=== PATIENT | male | born 1955 | race Caucasian/White ===

== ENCOUNTER 2018-10-09 08:00 | Outpatient (CLI) | payer MEDICARE, OTHER ==
[2018-10-09 13:00] LABS: CHLORIDE 94 mmol/L (101-111); SODIUM 130 mmol/L (135-145)
[2018-10-09 13:01] LABS: ALBUMIN 3.8 g/dL (3.2-5.5); ALBUMIN/GLOBULIN RATIO 0.9 (1.0-2.2); ALKALINE PHOSPHATASE 91 IU/L (42-121); ALT ALANINE AMINOTRANSFERASE 40 IU/L (10-60); AST ASPARTATE AMINOTRANSFERASE 37 IU/L (10-42); BILIRUBIN,TOTAL 1.1 mg/dL (0.2-1.0); BUN - BLOOD UREA NITROGEN 28 mg/dL (6-20); CALCIUM 9.3 mg/dL (8.5-10.3); CARBON DIOXIDE - CO2 22 mmol/L (21-32); CHOL/HDL RATIO 10.5 (<5.0); CHOLESTEROL 420 mg/dL; CREATININE 0.7 mg/dL (0.6-1.2); GFR - MDRD 113 (>89); GLUCOSE 397 mg/dL (70-100); HDL CHOLESTEROL 40 mg/dL; TOTAL PROTEIN 7.9 g/dL (6.7-8.2)
[2018-10-09 13:02] LABS: BASOPHILS % (AUTO) 0.5 %; EOSINOPHILS # (AUTO) 0.2 10^3/uL (0.0-0.7); EOSINOPHILS % (AUTO) 2.6 %; HGB - HEMOGLOBIN 15.8 g/dL (14.0-18.0); LYMPHOCYTES # (AUTO) 2.5 10^3/uL (1.5-3.5); LYMPHOCYTES % (AUTO) 37.2 %; MEAN CORPUSCULAR HEMOGLOBIN 33.3 pg (27.0-31.0); MEAN CORPUSCULAR HGB CONC 34.2 g/dL (32.0-36.0); MEAN CORPUSCULAR VOLUME 97.5 fL (80.0-94.0); MEAN PLATELET VOLUME 10.6 fL (7.4-11.4); MONOCYTES # (AUTO) 0.7 10^3/uL (0.0-1.0); MONOCYTES % (AUTO) 10.1 %; NEUTROPHILS # (AUTO) 3.4 10^3/uL (1.5-6.6); NEUTROPHILS % (AUTO) 49.6 %; PLT - PLATELET COUNT 166 10^3/uL (130-450); RED BLOOD COUNT 4.73 10^6/uL (4.70-6.10); RED CELL DISTRIBUTION WIDTH 13.4 % (12.0-15.0); WHITE BLOOD COUNT 6.8 x10^3/uL (4.8-10.8)
[2018-10-09 13:11] LABS: HB2 TOTAL 17.5 g/dL; HEMOGLOBIN A1C 2.23 g/dL; HEMOGLOBIN A1C % 13.8 % (4.6-6.2)
[2018-10-09 15:02] LABS: LDL CHOLESTEROL,DIRECT 329 mg/dL; LDLD/HDL RATIO 8.2 (<3.6)
== END 2018-10-09 23:59 | disposition home or self-care (01) ==
LOC: LAB.WCP 08:00
PROVIDERS: ATTEND Family Medicine
DX: E11.9 Type 2 diabetes mellitus without complications (principal)
CPT/HCPCS: 36415; 80053; 80061; 83036; 83721; 84443; 85025

== ENCOUNTER 2018-10-25 08:00 | Outpatient (CLI) | payer MEDICARE, OTHER | END 2018-10-25 23:59 | LOC: LAB.WCP 08:00 | PROVIDERS: ATTEND Nurse Practitioner | DX: R50.9 Fever, unspecified (principal) | CPT/HCPCS: 87275; 87276 ==

== ENCOUNTER 2018-11-06 10:58 | Outpatient (CLI) | payer MEDICARE, OTHER | END 2018-11-06 10:59 | disposition home or self-care (01) | LOC: SC 10:58 | PROVIDERS: ATTEND Internal Medicine Pulmonary Disease | DX: G47.33 Obstructive sleep apnea (adult) (pediatric) (principal); E66.9 Obesity, unspecified; Z68.35 Body mass index [BMI] 35.0-35.9, adult | CPT/HCPCS: 99203; G0463; 99212 ==

== ENCOUNTER 2019-04-12 08:00 | Outpatient (CLI) | payer MEDICARE, OTHER ==
[2019-04-12 19:28] LABS: ALBUMIN 3.7 g/dL (3.2-5.5); ALKALINE PHOSPHATASE 82 IU/L (42-121); ALT ALANINE AMINOTRANSFERASE 36 IU/L (10-60); AST ASPARTATE AMINOTRANSFERASE 27 IU/L (10-42); BILIRUBIN,TOTAL 0.6 mg/dL (0.2-1.0); BUN - BLOOD UREA NITROGEN 28 mg/dL (6-20); CALCIUM 9.4 mg/dL (8.5-10.3); CARBON DIOXIDE - CO2 23 mmol/L (21-32); CHLORIDE 104 mmol/L (101-111); CHOL/HDL RATIO 7.8 (<5.0); CHOLESTEROL 366 mg/dL; CREATININE 0.6 mg/dL (0.6-1.2); GFR - MDRD 135 (>89); GLUCOSE 353 mg/dL (70-100); HDL CHOLESTEROL 47 mg/dL; LDL CHOLESTEROL,CALCULATED 256 mg/dL; LDL/HDL RATIO 5.4 (<3.6); SODIUM 138 mmol/L (135-145); TOTAL PROTEIN 7.5 g/dL (6.7-8.2); VLDL CHOLESTEROL 63 mg/dL
== END 2019-04-12 23:59 | disposition home or self-care (01) ==
LOC: LAB.N 08:00
PROVIDERS: ATTEND Family Medicine
DX: E78.5 Hyperlipidemia, unspecified (principal)
CPT/HCPCS: 36415; 80053; 80061; 83721

== ENCOUNTER 2019-05-10 10:00 | Outpatient (CLI) | payer MEDICARE, OTHER ==
[2019-05-10 15:44] LABS: BILIRUBIN,URINE NEGATIVE (NEGATIVE); GLUCOSE, URINE (UA) >=1000 mg/dL (NEGATIVE); KETONES,URINE (UA) NEGATIVE (NEGATIVE); LEUKOCYTE ESTERASE, URINE NEGATIVE (NEGATIVE); NITRITE,URINE NEGATIVE (NEGATIVE); OCCULT BLOOD,URINE NEGATIVE (NEGATIVE); PROTEIN,URINE TRACE mg/dL (NEGATIVE); UROBILINOGEN,URINE 0.2 (NORMAL) E.U./dL (NORMAL)
[2019-05-10 15:46] LABS: CLARITY,URINE CLEAR (CLEAR)
== END 2019-05-10 23:59 | disposition home or self-care (01) ==
LOC: LAB.R 10:00
PROVIDERS: ATTEND Family Medicine
DX: E11.9 Type 2 diabetes mellitus without complications (principal); R35.0 Frequency of micturition
CPT/HCPCS: 81001; 81003; 87086

== ENCOUNTER 2019-05-10 10:36 | Outpatient (CLI) | payer MEDICARE, OTHER ==
[2019-05-10 12:02] LABS: BASOPHILS % (AUTO) 0.6 %; EOSINOPHILS # (AUTO) 0.2 10^3/uL (0.0-0.7); EOSINOPHILS % (AUTO) 3.1 %; HGB - HEMOGLOBIN 13.5 g/dL (14.0-18.0); LYMPHOCYTES # (AUTO) 1.7 10^3/uL (1.5-3.5); MEAN CORPUSCULAR HEMOGLOBIN 31.6 pg (27.0-31.0); MEAN CORPUSCULAR HGB CONC 34.5 g/dL (32.0-36.0); MEAN CORPUSCULAR VOLUME 91.6 fL (80.0-94.0); MEAN PLATELET VOLUME 12.1 fL (7.4-11.4); MONOCYTES # (AUTO) 0.5 10^3/uL (0.0-1.0); MONOCYTES % (AUTO) 7.7 %; NEUTROPHILS # (AUTO) 3.8 10^3/uL (1.5-6.6); NEUTROPHILS % (AUTO) 61.1 %; PLT - PLATELET COUNT 133 10^3/uL (130-450); RED BLOOD COUNT 4.27 10^6/uL (4.70-6.10); RED CELL DISTRIBUTION WIDTH 12.6 % (12.0-15.0); WHITE BLOOD COUNT 6.2 x10^3/uL (4.8-10.8)
[2019-05-10 12:27] LABS: ALBUMIN 3.5 g/dL (3.2-5.5); ALBUMIN/GLOBULIN RATIO 0.9 (1.0-2.2); BILIRUBIN,TOTAL 0.8 mg/dL (0.2-1.0); CALCIUM 9.1 mg/dL (8.5-10.3); CREATININE 0.8 mg/dL (0.6-1.2); CRP - C-REACTIVE PROTEIN 3.2 mg/dL (0-1.0); TOTAL PROTEIN 7.6 g/dL (6.7-8.2)
== END 2019-05-10 23:59 | disposition home or self-care (01) ==
LOC: LAB.N 10:36
PROVIDERS: ATTEND Family Medicine
DX: R05 Cough (principal); E11.9 Type 2 diabetes mellitus without complications; R35.0 Frequency of micturition
CPT/HCPCS: 36415; 80053; 81003; 83615; 85025; 86140

== ENCOUNTER 2019-05-27 14:56 | Outpatient (CLI) | payer MEDICARE, OTHER ==
--- NOTE | 2019-05-27 15:26 | SLEEP CARE CONSULTATION ---
Information from patient questionnaire entered by Kera Dowell. I have reviewed and concur with the information entered by Kera Dowell. This document represents the service I personally performed and the decisions made by me, Morgan López MD, [facility]. History of Present Illness Previous diagnosis: Moderate, Obstructive Sleep Apnea-Hypopnea Syndrome AHI: 20 Reason for CPAP/BiPAP follow up: first compliance Equipment type: CPAP Equipment obtained from: [employer] Prior sleep studies: Yes Year and Where: 2017 [facility] HPI additional information: HPI: Mr. Ramos was diagnosed to have moderate obstructive sleep apnea- hypopnea syndrome and returns today for annual follow up of CPAP therapy. The patient gets his supplies from [employer]. He wears a full face mask. He continues to use the device nightly and all through the night. The compliance report shows that he uses the device 29 nights out of the past 30 nights, averaging 10.1 hours a night. The > 4 hour compliance rate for the past 30 days is 93.3%. He complains of no particular problem with the device such as soreness on the face, dry nose, epistaxis, nasal congestion or headache. He thinks that the pressure of 10 - 20 cmH2O is comfortable. On the CPAP therapy he notices improvement in his sleep quality, and that he wakes up feeling fresher in the morning and more awake/alert during the day. Hayward Sleepiness Scale score is 0. His notices occasional snore through the CPAP. The average residual AHI is 1.7; and large leak, 4 minutes a night. He is still using his old Respironics machine because the exact setup date of this machine is unclear (the machine broke after a few months at the beginning and he was given a refurbished unit). CPAP Compliance Data - Data Reviewed with Patient Average duration of nightly device use: 10h 5m Compliance rate %: 93.3 Current pressure setting (cmH2O): 10-20 Humidity settin Heated hose settin Subjective Patient concerns: reports: air blowing in eyes, condensation in mask/hose, dry mouth, nose, throat Initial Hayward Sleepiness Scale score: 3 Current Hayward Sleepiness Scale score: 0 Allergies and Home Medications Drug allergies reviewed: Yes Home medication list reviewed: Yes Review of Systems Review of systems same as previous: Yes Physical Exam Height: 5 ft 4 in Weight: 209 lb Body Mass Index: 35.9 BMI Classification: Obesity Class 2 Impression and Plan IMPRESSION: 1. Obstructive Sleep Apnea-Hypopnea Syndrome, moderate, with the patient continuing to do well on nasal CPAP therapy. He has excellent compliance and significant clinical benefits. The current pressure appears effective and comfortable. Overall, he is very satisfied with treatment and plans to continue with it long-term. I will reorder a new machine for him. PLAN: 1. Prescription made for an autoCPAP, heated humidifier, and related supplies. 2. Try ResMed F30 and Respironics AmaraView full face masks. 3. Try to lose weight. 4. Return for follow up after one month on the new machine. I spent 100% of this 20 minute visit face to face with the patient with greater than 50% of this was spent time counseling the patient and coordination of care.
== END 2019-05-27 14:57 | disposition home or self-care (01) ==
LOC: SC 14:56
PROVIDERS: ATTEND Internal Medicine Pulmonary Disease
DX: G47.33 Obstructive sleep apnea (adult) (pediatric) (principal); E66.9 Obesity, unspecified; Z68.35 Body mass index [BMI] 35.0-35.9, adult
CPT/HCPCS: 99213; G0463; 99212

== ENCOUNTER 2019-07-16 11:05 | Outpatient (CLI) | payer MEDICARE, OTHER ==
[2019-07-16 19:04] LABS: CHOL/HDL RATIO 4.1 (<5.0); CHOLESTEROL 196 mg/dL; HDL CHOLESTEROL 48 mg/dL; LDL CHOLESTEROL,CALCULATED 106 mg/dL; LDL/HDL RATIO 2.2 (<3.6); VLDL CHOLESTEROL 42 mg/dL
== END 2019-07-16 23:59 | disposition home or self-care (01) ==
LOC: LAB.N 11:05
PROVIDERS: ATTEND Family Medicine
DX: E78.5 Hyperlipidemia, unspecified (principal)
CPT/HCPCS: 36415; 80061; 83721

== ENCOUNTER 2019-07-26 12:33 | Outpatient (CLI) | payer MEDICARE, OTHER | END 2019-07-26 12:34 | disposition home or self-care (01) | LOC: RT 12:33 | PROVIDERS: ATTEND Internal Medicine Gastroenterology | DX: I50.9 Heart failure, unspecified (principal); I25.10 Atherosclerotic heart disease of native coronary artery without angina pectoris | CPT/HCPCS: 93005 ==

== ENCOUNTER 2019-08-06 06:43 | Day surgery (SDC) | payer MEDICARE, OTHER ==
[2019-08-06] MEDS ORDERED: MIDAZOLAM 2 MG/2 ML VIAL IVP ONE (06:44)
[2019-08-06] MEDS ORDERED: KETAMINE 500 MG/10 ML VIAL IVP ONE (06:44)
[2019-08-06] MEDS ORDERED: PROPOFOL 200 MG/20 ML VIAL IVP ONE (06:44)
[2019-08-06] MEDS ORDERED: LACTATED RINGERS 1,000 ML IV ONE ×2 (06:52→09:17)
--- NOTE | 2019-08-06 08:13 | ANESTHESIA ---
Pre-Anesthesia VS, & Labs - Diagnosis hx colon polyps - Procedure colonoscopy Vital Signs: Temp Pulse Resp BP Pulse Ox 36.0 C L 104 H 17 157/83 H 99 08/06/19 07:10 08/06/19 07:10 08/06/19 07:10 08/06/19 07:10 08/06/19 07:10 Height 5 ft 4 in Weight (kg) 99 kg Body Mass Index 35.9 - NPO >8 hours - Lab Results Current Lab Results: Laboratory Tests 08/06/19 07:22: POC Whole Bld Glucose 242 H Lab results reviewed: Yes Home Medications and Allergies Home Medications: Ambulatory Orders Aspirin [Aspirin EC] 81 mg PO DAILY 07/30/19 Carvedilol [Coreg] 25 mg PO BID 07/30/19 Empagliflozin [Jardiance] 25 mg PO DAILY 07/30/19 Evolocumab [Repatha Sureclick] 140 mg SQ ONCE 07/30/19 Exenatide Microspheres [Bydureon Pen] 2 mg SQ OAW 07/30/19 Ezetimibe [Zetia] 10 mg PO QPM 07/30/19 Gemfibrozil 600 mg PO BID 07/30/19 Insulin Regular, Human [Humulin R U-500 Kwikpen] 160 unit SUBQ BIDWM 07/30/19 Insulin Regular, Human [Humulin R U-500 Kwikpen] 240 unit SUBQ QDBREAKFAST 07/30/19 Isosorbide Dinitrate 10 - 30 mg PO DAILY 07/30/19 Ivabradine HCl [Corlanor] 5 mg PO BID 07/30/19 Lisinopril 10 mg PO DAILY 07/30/19 Loratadine [Allergy Relief] 10 mg PO DAILY 07/30/19 Metformin HCl 1,000 mg PO BID 07/30/19 Mohawk-3/Dha/Epa/Fish Oil [Mohawk 3 500 Softgel] 1,000 mg PO BID 07/30/19 Pentoxifylline 400 mg PO TID 07/30/19 Pregabalin [Lyrica] 100 mg PO BID 07/30/19 Spironolactone 25 mg PO DAILY 07/30/19 Aspirin [Aspirin EC] 81 mg PO DAILY 07/30/19 Carvedilol [Coreg] 25 mg PO BID 07/30/19 Empagliflozin [Jardiance] 25 mg PO DAILY 07/30/19 Evolocumab [Repatha Sureclick] 140 mg SQ ONCE 07/30/19 Exenatide Microspheres [Bydureon Pen] 2 mg SQ OAW 07/30/19 Ezetimibe [Zetia] 10 mg PO QPM 07/30/19 Gemfibrozil 600 mg PO BID 07/30/19 Insulin Regular, Human [Humulin R U-500 Kwikpen] 160 unit SUBQ BIDWM 07/30/19 Insulin Regular, Human [Humulin R U-500 Kwikpen] 240 unit SUBQ QDBREAKFAST 07/30/19 Isosorbide Dinitrate 10 - 30 mg PO DAILY 07/30/19 Ivabradine HCl [Corlanor] 5 mg PO BID 07/30/19 Lisinopril 10 mg PO DAILY 07/30/19 Loratadine [Allergy Relief] 10 mg PO DAILY 07/30/19 Metformin HCl 1,000 mg PO BID 07/30/19 Mohawk-3/Dha/Epa/Fish Oil [Mohawk 3 500 Softgel] 1,000 mg PO BID 07/30/19 Pentoxifylline 400 mg PO TID 07/30/19 Pregabalin [Lyrica] 100 mg PO BID 07/30/19 Spironolactone 25 mg PO DAILY 07/30/19 Allergies/Adverse Reactions: Allergies Allergy/AdvReac Type Severity Reaction Status Date / Time morphine AdvReac Nausea Verified 07/30/19 14:17 Anes History & Medical History - Anesthetic History Anesthesia Complications: reports: No previous complications Family history of Anesthesia Complications: Denies Family history of Malignant Hyperthermia: Denies - Medical History Cardiovascular: reports: Congestive heart failure, Hypertension, High cholesterol, Coronary artery disease, [place] Pulmonary: reports: Sleep apnea, CPAP use Gastrointestinal: reports: Colon polyps Urinary: reports: None Musculoskeletal: reports: None Endocrine/Autoimmune: reports: Type 2 diabetes Skin: reports: None - Surgical History General: Other Eyes Ears Nose Throat (EENT): Cataracts, Myringotomy (tubes), Other Cardiothoracic: CABG, Coronary stent, AICD, Angioplasty Orthopedic: Rotator cuff repair, Carpal Tunnel surgery, Other Exam General: Alert, Oriented x3, Cooperative Dental: WNL Mouth Opening: Greater than 4 Fingerbreadths Neck Mobility: Normal Mallampati classification: II Thyromental Distance: greater than 6 cm Respiratory: Lungs clear, Normal breath sounds, No respiratory distress, No accessory muscle use Cardiovascular: Regular rate Neurological: Normal speech Mental/Cognitive Status: Alert/Oriented X3, Normal for patient Cognitive Status: Within normal limits Plan Anesthesia Type: MAC Consent for Procedure(s) Verified and Reviewed: Yes Code Status: Attempt Resuscitation ASA classification: 3-Severe systemic disease Is this case an emergency?: No
[2019-08-06 09:38] VITALS: BP 116/73
== END 2019-08-06 06:44 | disposition home or self-care (01) ==
LOC: SDS 06:43
PROVIDERS: ATTEND Internal Medicine Gastroenterology
PROC: 0DBN8ZZ Excision of Sigmoid Colon, Via Natural or Artificial Opening Endoscopic (ICD-10-PCS; principal; 2019-08-06 12:00)
DX: Z12.11 Encounter for screening for malignant neoplasm of colon (principal); K63.5 Polyp of colon; E66.9 Obesity, unspecified; E11.9 Type 2 diabetes mellitus without complications; I25.10 Atherosclerotic heart disease of native coronary artery without angina pectoris; G47.33 Obstructive sleep apnea (adult) (pediatric); I11.0 Hypertensive heart disease with heart failure; I50.9 Heart failure, unspecified; I25.2 Old myocardial infarction; Z79.4 Long term (current) use of insulin; Z79.899 Other long term (current) drug therapy; Z95.5 Presence of coronary angioplasty implant and graft; Z95.1 Presence of aortocoronary bypass graft; Z87.891 Personal history of nicotine dependence; Z68.35 Body mass index [BMI] 35.0-35.9, adult; Z79.82 Long term (current) use of aspirin; Z95.810 Presence of automatic (implantable) cardiac defibrillator
CPT/HCPCS: 45380; J7120

== ENCOUNTER 2020-03-07 08:03 | Outpatient (CLI) | payer MEDICARE, OTHER ==
[2020-03-07 09:48] LABS: BASOPHILS # (AUTO) 0.1 10^3/uL (0.0-0.1); BASOPHILS % (AUTO) 0.7 %; EOSINOPHILS # (AUTO) 0.2 10^3/uL (0.0-0.7); EOSINOPHILS % (AUTO) 2.4 %; LYMPHOCYTES # (AUTO) 2.1 10^3/uL (1.5-3.5); LYMPHOCYTES % (AUTO) 25.1 %; MEAN CORPUSCULAR HEMOGLOBIN 31.7 pg (27.0-31.0); MEAN CORPUSCULAR HGB CONC 34.3 g/dL (32.0-36.0); MEAN CORPUSCULAR VOLUME 92.4 fL (80.0-94.0); MEAN PLATELET VOLUME 11.2 fL (7.4-11.4); MONOCYTES # (AUTO) 0.9 10^3/uL (0.0-1.0); MONOCYTES % (AUTO) 10.9 %; NEUTROPHILS # (AUTO) 5.1 10^3/uL (1.5-6.6); NEUTROPHILS % (AUTO) 60.4 %; PLT - PLATELET COUNT 149 10^3/uL (130-450); RED BLOOD COUNT 4.73 10^6/uL (4.70-6.10); RED CELL DISTRIBUTION WIDTH 12.6 % (12.0-15.0); WHITE BLOOD COUNT 8.5 x10^3/uL (4.8-10.8)
[2020-03-07 09:59] LABS: ALBUMIN 3.7 g/dL (3.2-5.5); ALBUMIN/GLOBULIN RATIO 0.9 (1.0-2.2); CALCIUM 9.3 mg/dL (8.5-10.3); CREATININE 0.8 mg/dL (0.6-1.2); TOTAL PROTEIN 7.7 g/dL (6.7-8.2)
--- NOTE | 2020-03-07 11:11 | Ultrasound Report ---
PROCEDURE: Abdomen Complete INDICATIONS: ABD DISCOMFORT TECHNIQUE: Real-time scanning was performed of the abdominal and retroperitoneal organs, with image documentatio n. COMPARISON: None. FINDINGS: Liver: Liver is normal in size. The liver demonstrates a heterogeneous, hyperechoic appearance. With in the anterolateral left lobe of the liver, there is a cyst is seen measuring 7 mm. Within the poste rior lateral mid right lobe along the diaphragmatic surface, there is a hypoechoic heterogeneous area measuring 3.8 x 2.5 x 2.6 cm. Gallbladder: The gallbladder is distended. No gallstones or significant sludge can be seen. The gall bladder wall does not appear thickened. There is no specific pericholecystic fluid. The sonographic M urphy's sign is negative. Biliary ducts: Intrahepatic bile ducts are non-dilated. Extrahepatic bile duct caliber measures 4 m m. Normal is 6-7 mm or less in diameter, or 10 mm or less post-cholecystectomy. Pancreas: Visualized portions of the pancreas are sonographically normal. Spleen: Spleen is normal in size and homogeneous in echotexture. Kidneys: Kidneys are normal in size and echotexture. Right kidney measures 12.9 cm long; left kidne y measures 12.2 cm long. No hydronephrosis or nephrolithiasis. No solid masses. The renal cortex measures within normal limits for thickness. Aorta: Visualized aorta is normal in caliber at less than 3 cm. Atherosclerotic plaque is seen. Iliacs: Proximal common iliac arteries are normal in caliber at less than 2.5 cm. IVC: Intrahepatic inferior vena cava is patent. Miscellaneous: No free abdominal fluid. IMPRESSION: The gallbladder demonstrates a normal sonographic appearance. No biliary dilatation is seen. Heterogeneous hyperechoic liver, most likely related to fatty infiltration. Within the posterior right liver, there is a 3.8 cm relative hypoechoic focus. Differential diagnosis includes focal fatty sparing and a true mass. Please consider a liver protocol MRI (without and with contrast) for further evaluation (assuming that there is no contraindication). Incidental note is made of: Left liver cyst Atherosclerotic plaque Reviewed by: Dong Stafford MD on 03/07/2020 10:09 AM PAPA Approved by: Dong Stafford MD on 03/07/2020 10:09 AM AKGARRETT Station ID: [id number]
== END 2020-03-07 08:04 | disposition home or self-care (01) ==
LOC: DI 08:03
PROVIDERS: ATTEND Family Medicine
DX: R10.9 Unspecified abdominal pain (principal); K76.89 Other specified diseases of liver
CPT/HCPCS: 36415; 76700; 80053; 82150; 83690; 85025

== ENCOUNTER 2020-07-06 10:14 | Outpatient (CLI) | payer MEDICARE, OTHER ==
--- NOTE | 2020-07-06 10:41 | SLEEP CARE CONSULTATION ---
Information from patient questionnaire entered by Susan Holland. I have reviewed and concur with the information entered by Susan Holland. This document represents the service I personally performed and the decisions made by , Roxie Dunham ARNP. History of Present Illness Service Date and Time: 07/06/2020 1014 Previous diagnosis: Moderate, Obstructive Sleep Apnea-Hypopnea Syndrome AHI: 20 (in 2018) Reason for follow up: annual (last seen 2019) Equipment type: CPAP Equipment obtained from: [employer] (getting supplies as needed) Mask style: Full face Backup mask available: Yes (old mask) Last cushion change: 1 week ago Prior sleep studies: Yes Year and Where: 2018 - [facility] HPI additional information: LETY BUNCH was diagnosed to have moderate, AHI 20, obstructive sleep apnea- hypopnea syndrome and returned today for CPAP therapy annual follow-up. CPAP Compliance Data - Data Reviewed with Patient Average duration of nightly device use: 10 hours 9 min Compliance rate %: 99.4 Current pressure setting (cmH2O): 12-20 Humidity settin Heated hose settin Average residual AHI: 1.7 Average large leak: 4 mins. 53 secs Subjective Patient concerns: denies: aerophagia, mask discomfort, air blowing in eyes, mask leak noise, condensation in mask/hose, nasal congestion, dry mouth, nose, throat, epistaxis, other Observed to snore while using device: Yes (when he is on his back) Current pressure setting perceived as: comfortable On therapy, patient: reports: sleeping better, awakening more refreshed, being more awake and alert during the day, more rested overall. denies: drowsiness while driving Initial Cruger Sleepiness Scale score: 3 (in 2019) Current Cruger Sleepiness Scale score: 3 Allergies and Home Medications Drug allergies reviewed: Yes (morphine) Home medication list reviewed: Yes (no changes) Review of Systems Review of systems same as previous: Yes (no changes) Physical Exam Heart Rate: 96 O2 Saturation: 94 Height: 5 ft 4 in Weight: 217 lb Body Mass Index: 37.2 BMI Classification: Obese Impression and Plan 1. Obstructive Sleep Apnea-Hypopnea Syndrome, moderate, with good treatment comp liance and good apnea control. On CPAP therapy, the patient has better sleep quality and is more rested overall. Patient asked about and informed that he is eligible for a new machine next year. He has no other issues or concerns today. We will have him back next year or sooner with any other concerns that may arise. Patient's apnea severity and rationale for treatment to reduce apnea, improve sleep quality and reduce cardiovascular and cerebrovascular events was reviewed. I also reviewed the benefit of consistent device use of CPAP for cardiac disease and diabetes. * Continue auto CPAP pressure at 12-20 cmH2O * Notify me if snoring with mask or feeling that the pressure is too much or too little * Attempt to lose weight * Call this office if any problems using CPAP * Return for follow up in 1 year , or sooner if concerns arise Counseling Topics: Spare mask, Weight loss health impact Visit Type: In Office Time Spent with Patient (minutes): 20 Provider Statement: I spent 100% of the Face to Face Visit with the patient with greater than 50% spent counseling the patient and coordination of care.
== END 2020-07-06 10:15 | disposition home or self-care (01) ==
LOC: SC 10:14
PROVIDERS: ATTEND Nurse Practitioner Family
DX: G47.33 Obstructive sleep apnea (adult) (pediatric) (principal); E66.9 Obesity, unspecified; Z68.37 Body mass index [BMI] 37.0-37.9, adult
CPT/HCPCS: 99213; G0463; 99212

== ENCOUNTER 2020-09-14 11:56 | Outpatient (CLI) | payer MEDICARE, OTHER | END 2020-09-14 11:57 | disposition short-term general hospital (02) | LOC: EMS 11:56 | PROVIDERS: ATTEND Surgery | DX: R07.9 Chest pain, unspecified (principal); R06.09 Other forms of dyspnea | CPT/HCPCS: A0425; A0427 ==

== ENCOUNTER 2021-05-28 09:00 | Outpatient (CLI) | payer MEDICARE, OTHER ==
[2021-05-28 12:23] LABS: ESTIMATED AVERAGE GLUCOSE 318 mg/dL (70-100); HEMOGLOBIN A1c% 12.7 % (4.27-6.07)
[2021-05-28 12:32] LABS: CALCIUM 9.8 mg/dL (8.5-10.3); CREATININE 0.8 mg/dL (0.6-1.2); POTASSIUM 4.3 mmol/L (3.5-5.0)
== END 2021-05-28 23:59 | disposition home or self-care (01) ==
LOC: LAB.WCP 09:00
PROVIDERS: ATTEND Internal Medicine
DX: E11.8 Type 2 diabetes mellitus with unspecified complications (principal)
CPT/HCPCS: 36415; 80048; 83036

== ENCOUNTER 2021-08-09 10:57 | Outpatient (CLI) | payer MEDICARE, OTHER ==
[2021-08-10 08:49] VITALS: BP 130/96
--- NOTE | 2021-08-10 08:49 | SLEEP CARE CONSULTATION ---
Information from patient questionnaire entered by Brennon Watkins MA. I have reviewed and concur with the information entered by Brennon Watkins MA. This document represents the service I personally performed and the decisions made by me, Morgan López MD, [facility]. History of Present Illness Service Date and Time: 08/09/2021 1057 Previous diagnosis: Moderate, Obstructive Sleep Apnea-Hypopnea Syndrome AHI: 20 (in 2018) Reason for follow up: annual (LAST SEEN 06/2020) Equipment type: CPAP Equipment obtained from: Other (getting supplies as needed thru [employer]) Mask style: Full face Prior sleep studies: Yes Year and Where: 2017 - [facility] additional information: Mr. Ramos was diagnosed to have moderate obstructive sleep apnea-hypopnea syndrome and returns today for annual follow up of CPAP therapy. The patient gets his supplies from [facility]. He wears a full face mask. He continues to use the device nightly and all through the night. The compliance report shows that he uses the device 180 nights out of the past 180 nights, averaging 11.1 hours a night. The > 4 hour compliance rate for the past 180 days is 100%. He complains of no particular problem with the device such as soreness on the face, dry nose, epistaxis, nasal congestion or headache. He thinks that the pressure of 12 - 20 cmH2O is comfortable. On the CPAP therapy he notices improvement in his sleep quality, and that he wakes up feeling fresher in the morning and more awake/alert during the day. Gobler Sleepiness Scale score is 10 (was 0). His notices occasional snore through the CPAP. The average residual AHI is 2.7 (was 1.7); and large leak, 4.5 minutes a night. The 90th percentile pressure is 14.5 cmH2O. Sleep Study - Results Prior sleep studies: Yes Year and Where: 2017 - [facility] CPAP Compliance Data - Data Reviewed with Patient Average duration of nightly device use: 11 HOURS 6 MINUTES Compliance rate %: 1,000 Current pressure setting (cmH2O): 12-20 Humidity settin Heated hose settin Average residual AHI: 2.7 Average large leak: 4 MINUTES 30 SECONDS Subjective Patient concerns: reports: condensation in mask/hose, dry mouth, nose, throat, other (snore while using) Initial Gobler Sleepiness Scale score: 3 (in 2019) Current Gobler Sleepiness Scale score: 10 (2020) Allergies and Home Medications Drug allergies reviewed: Yes Home medication list reviewed: Yes Review of Systems Review of systems same as previous: Yes Physical Exam Vital signs obtained and entered by: JAMESON FITZPATRICK Blood Pressure: 130/96 (left) Cuff size: wrist Heart Rate: 72 O2 Saturation: 88 (with mask) Height: 5 ft 4 in Weight: 188 lb Body Mass Index: 32.2 BMI Classification: Obese Impression and Plan IMPRESSION: 1. Obstructive Sleep Apnea-Hypopnea Syndrome, moderate, with the patient continuing to do well on nasal CPAP therapy. He has excellent compliance and significant clinical benefits. The current pressure appears effective and comfortable. Overall, he is very satisfied with treatment and plans to continue with it long-term. Because the CPAP is now older than the useful life of 5 years and is being recalled, I will order the patient a new one and make it a ResMed AirSense 11 set between 13 and 20 cmH2O. PLAN: 1. Prescription made for an autoCPAP, heated humidifier, and r elated supplies. 2. Try ResMed F30 and Respironics DreamWear full face mask. 3. Try to lose weight. 4. Return for follow up after one month of using the CPAP. Follow up with Sleep Care in: 1 year Visit Type: In Office Time Spent with Patient (minutes): 15 Provider Statement: I spent 100% of the Face to Face Visit with the patient with greater than 50% spent counseling the patient and coordination of care.
== END 2021-08-09 10:58 | disposition home or self-care (01) ==
LOC: SC 10:57
PROVIDERS: ATTEND Nurse Practitioner Family
DX: G47.33 Obstructive sleep apnea (adult) (pediatric) (principal); E66.9 Obesity, unspecified; Z68.32 Body mass index [BMI] 32.0-32.9, adult
CPT/HCPCS: 99212; G0463

== ENCOUNTER 2022-01-28 10:01 | Outpatient (CLI) | payer MEDICARE, OTHER ==
[2022-01-28 10:53] VITALS: BP 141/83
--- NOTE | 2022-01-28 10:53 | SLEEP CARE CONSULTATION ---
Information from patient questionnaire entered by Brennon Watkins MA. I have reviewed and concur with the information entered by Brennon Watkins MA. This document represents the service I personally performed and the decisions made by , Roxie Dunham ARNP. History of Present Illness Service Date and Time: 01/28/2022 1001 Previous diagnosis: Moderate, Obstructive Sleep Apnea-Hypopnea Syndrome AHI: 20 (in 2018) Reason for follow up: first compliance (SET UP DATE 11/23/2021, DESIREE - IN SYSTEM, ), first compliance after device update Equipment type: CPAP Equipment obtained from: [employer] (getting supplies as needed) Mask style: Full face Backup mask available: Yes (old mask) Last cushion change: 3-4 weeks Prior sleep studies: Yes Year and Where: 2017 - [facility] HPI additional information: LETY BUNCH was diagnosed to have moderate, AHI 20, obstructive sleep apnea- hypopnea syndrome and returned today for CPAP therapy first compliance after updating device follow-up. Sleep Study - Results Prior sleep studies: Yes Year and Where: 2018 - [facility] CPAP Compliance Data - Data Reviewed with Patient Average duration of nightly device use: 5 hours 8 minutes Compliance rate %: 46.7 (10/29/21-01/26/22; 90 days) Current pressure setting (cmH2O): 12-20 Average residual AHI: 0.1 Average large leak: 0 minutes Compliance data discussion: Patient states he is using his machine every night. There is no data on the [employer] website since late November up to today. We did try to have him download it again in the office but still did not see any data for the last 30 days. His therapy details shows that he was 100% compliant in a 30 day period in the last 90 days. Subjective Patient concerns: denies: aerophagia, mask discomfort, air blowing in eyes, mask leak noise, condensation in mask/hose, nasal congestion, dry mouth, nose, throat, epistaxis Observed to snore while using device: No Current pressure setting perceived as: comfortable On therapy, patient: reports: sleeping better, awakening more refreshed, being more awake and alert during the day, more rested overall. denies: drowsiness while driving Initial Chase[place] Sleepiness Scale score: 3 (in 2019) Current [place] Sleepiness Scale score: 13 Allergies and Home Medications Home medication list reviewed: Yes (no changes) Allergy and home medication list: Allergies morphine Adverse Reaction (Verified 07/30/19 14:17) Nausea Medications list: Lantus Carvedilol Metformin Entresto Corlanor Repatha Lyrica Pravastatin Jardiance Aspirin Trulicity Isosorbide Indapamide Famotidine Review of Systems Review of systems same as previous: Yes (no changes) Physical Exam Vital signs obtained and entered by: Bruce WATKINS CMA AASTACY Blood Pressure: 141/83 (RESP 18, PULSE 76, LEFT, ) Heart Rate: 77 O2 Saturation: 97 (PAPER MASK) Height: 5 ft 4 in Weight: 227 lb Body Mass Index: 38.9 BMI Classification: Obese Impression and Plan 1. Obstructive Sleep Apnea-Hypopnea Syndrome, moderate, with excellent treatment compliance and excellent apnea control. On CPAP therapy, the patient has better sleep quality and is more rested overall. We had some difficulty with getting his downloaded information. But, I can see that he has been compliant and the patient states he is using it nightly. I am going to have him contact the RT at [facility] so they can see if it needs to be reset or to educate him on how to get the information downloaded from his device. But overall he is compliant with his new Desiree machine. Patient denies problems with oral dryness, nasal congestion, epistaxis, skin irritation or aerophagia. Patient's apnea severity and rationale for treatment to reduce apnea, improve sleep quality and reduce cardiovascular and cerebrovascular events was reviewed. I also reviewed the benefit of consistent device use of CPAP for cardiac disease and diabetes. * Continue auto CPAP pressure at 12-20 cmH2O * Notify me if snoring with mask or feeling that the pressure is too much or too little * Attempt to lose weight * Call this office if any problems using CPAP * Return for follow up in 1 year, or sooner if concerns arise Counseling Topics: Spare mask, Weight loss health impact Visit Type: In Office Time Spent with Patient (minutes): 25 Provider Statement: I spent 100% of the Face to Face Visit with the patient with greater than 50% spent counseling the patient and coordination of care.
== END 2022-01-28 10:02 | disposition home or self-care (01) ==
LOC: SC 10:01
PROVIDERS: ATTEND Nurse Practitioner Family
DX: G47.33 Obstructive sleep apnea (adult) (pediatric) (principal); E66.9 Obesity, unspecified; Z68.38 Body mass index [BMI] 38.0-38.9, adult
CPT/HCPCS: 99213; G0463; 99212

== ENCOUNTER 2022-03-10 12:12 | Outpatient (CLI) | payer MEDICARE, OTHER ==
[2022-03-10 17:51] LABS: BASOPHILS # (AUTO) 0.1 10^3/uL (0.0-0.1); BASOPHILS % (AUTO) 0.9 %; EOSINOPHILS # (AUTO) 0.2 10^3/uL (0.0-0.7); EOSINOPHILS % (AUTO) 3.9 %; HCT - HEMATOCRIT 32.4 % (42.0-52.0); HGB - HEMOGLOBIN 10.6 g/dL (14.0-18.0); LYMPHOCYTES % (AUTO) 17.8 %; MEAN CORPUSCULAR HEMOGLOBIN 30.5 pg (27.0-31.0); MEAN CORPUSCULAR HGB CONC 32.7 g/dL (32.0-36.0); MEAN CORPUSCULAR VOLUME 93.4 fL (80.0-94.0); MONOCYTES # (AUTO) 0.8 10^3/uL (0.0-1.0); MONOCYTES % (AUTO) 13.6 %; NEUTROPHILS # (AUTO) 3.6 10^3/uL (1.5-6.6); NEUTROPHILS % (AUTO) 63.4 %; PLT - PLATELET COUNT 117 10^3/uL (130-450); RED BLOOD COUNT 3.47 10^6/uL (4.70-6.10); WHITE BLOOD COUNT 5.7 x10^3/uL (4.8-10.8)
[2022-03-10 18:49] LABS: ALBUMIN 3.5 g/dL (3.2-5.5); ALBUMIN/GLOBULIN RATIO 0.9 (1.0-2.2); BILIRUBIN,TOTAL 1.1 mg/dL (0.2-1.0); CALCIUM 8.8 mg/dL (8.5-10.3); CREATININE 2.3 mg/dL (0.6-1.2); POTASSIUM 4.8 mmol/L (3.5-5.0); TOTAL PROTEIN 7.4 g/dL (6.7-8.2)
== END 2022-03-10 12:13 | disposition home or self-care (01) ==
LOC: LAB.N 12:12
PROVIDERS: ATTEND Nurse Practitioner
DX: C22.0 Liver cell carcinoma (principal)
CPT/HCPCS: 36415; 80053; 85025

== ENCOUNTER 2022-07-12 10:33 | Outpatient (CLI) | payer MEDICARE, OTHER ==
[2022-07-12 11:54] LABS: BASOPHILS # (AUTO) 0.1 10^3/uL (0.0-0.1); BASOPHILS % (AUTO) 1.3 %; EOSINOPHILS # (AUTO) 0.4 10^3/uL (0.0-0.7); HCT - HEMATOCRIT 31.2 % (42.0-52.0); HGB - HEMOGLOBIN 9.8 g/dL (14.0-18.0); LYMPHOCYTES # (AUTO) 0.9 10^3/uL (1.5-3.5); MEAN CORPUSCULAR HEMOGLOBIN 29.7 pg (27.0-31.0); MEAN CORPUSCULAR HGB CONC 31.4 g/dL (32.0-36.0); MEAN CORPUSCULAR VOLUME 94.5 fL (80.0-94.0); MEAN PLATELET VOLUME 11.7 fL (7.4-11.4); MONOCYTES # (AUTO) 0.7 10^3/uL (0.0-1.0); MONOCYTES % (AUTO) 11.7 %; NEUTROPHILS # (AUTO) 4.1 10^3/uL (1.5-6.6); NEUTROPHILS % (AUTO) 65.7 %; PLT - PLATELET COUNT 192 10^3/uL (130-450); RED CELL DISTRIBUTION WIDTH 16.5 % (12.0-15.0); WHITE BLOOD COUNT 6.2 x10^3/uL (4.8-10.8)
[2022-07-12 13:03] LABS: ALBUMIN 3.4 g/dL (3.2-5.5); ALBUMIN/GLOBULIN RATIO 0.8 (1.0-2.2); BILIRUBIN,TOTAL 1.5 mg/dL (0.2-1.0); CREATININE 1.7 mg/dL (0.6-1.2); POTASSIUM 4.6 mmol/L (3.5-5.0); TOTAL PROTEIN 7.6 g/dL (6.7-8.2)
== END 2022-07-12 10:34 | disposition home or self-care (01) ==
LOC: LAB.N 10:33
PROVIDERS: ATTEND Internal Medicine
DX: K76.7 Hepatorenal syndrome (principal)
CPT/HCPCS: 36415; 80053; 85025

== ENCOUNTER 2022-08-22 08:27 | Outpatient (CLI) | payer MEDICARE, OTHER ==
[2022-08-22 11:49] LABS: BASOPHILS # (AUTO) 0.1 10^3/uL (0.0-0.1); BASOPHILS % (AUTO) 0.8 %; EOSINOPHILS # (AUTO) 0.3 10^3/uL (0.0-0.7); EOSINOPHILS % (AUTO) 4.4 %; HCT - HEMATOCRIT 34.9 % (42.0-52.0); HGB - HEMOGLOBIN 10.9 g/dL (14.0-18.0); LYMPHOCYTES # (AUTO) 1.4 10^3/uL (1.5-3.5); LYMPHOCYTES % (AUTO) 18.9 %; MEAN CORPUSCULAR HEMOGLOBIN 30.3 pg (27.0-31.0); MEAN CORPUSCULAR HGB CONC 31.2 g/dL (32.0-36.0); MEAN CORPUSCULAR VOLUME 96.9 fL (80.0-94.0); MEAN PLATELET VOLUME 11.6 fL (7.4-11.4); MONOCYTES # (AUTO) 0.9 10^3/uL (0.0-1.0); MONOCYTES % (AUTO) 12.5 %; NEUTROPHILS # (AUTO) 4.6 10^3/uL (1.5-6.6); NEUTROPHILS % (AUTO) 63.1 %; PLT - PLATELET COUNT 157 10^3/uL (130-450); WHITE BLOOD COUNT 7.3 x10^3/uL (4.8-10.8)
[2022-08-22 12:25] LABS: ALBUMIN 3.5 g/dL (3.2-5.5); ALBUMIN/GLOBULIN RATIO 0.7 (1.0-2.2); BILIRUBIN,TOTAL 1.4 mg/dL (0.2-1.0); CALCIUM 8.9 mg/dL (8.5-10.3); CREATININE 1.6 mg/dL (0.6-1.2); POTASSIUM 4.1 mmol/L (3.5-5.0); TOTAL PROTEIN 8.3 g/dL (6.7-8.2)
[2022-08-22 13:57] LABS: ESTIMATED AVERAGE GLUCOSE 143 mg/dL (70-100); HEMOGLOBIN A1c% 6.6 % (4.27-6.07)
== END 2022-08-22 08:28 | disposition home or self-care (01) ==
LOC: LAB.N 08:27
PROVIDERS: ATTEND Internal Medicine
DX: K76.7 Hepatorenal syndrome (principal); E11.59 Type 2 diabetes mellitus with other circulatory complications
CPT/HCPCS: 36415; 80053; 83036; 85025

== ENCOUNTER 2022-09-27 18:51 | Outpatient (CLI) | payer MEDICARE, OTHER | END 2022-09-27 18:52 | disposition short-term general hospital (02) | LOC: EMS 18:51 | DX: R06.02 Shortness of breath (principal); R79.89 Other specified abnormal findings of blood chemistry; N19 Unspecified kidney failure | CPT/HCPCS: A0425; A0429; A0888 ==

== ENCOUNTER 2022-10-14 15:34 | Outpatient (CLI) | payer MEDICARE, OTHER | END 2022-10-14 15:35 | disposition critical access hospital (66) | LOC: EMS 15:34 | DX: I95.1 Orthostatic hypotension (principal); N18.6 End stage renal disease; I47.20 Ventricular tachycardia, unspecified; I42.9 Cardiomyopathy, unspecified | CPT/HCPCS: A0425; A0429 ==

== ENCOUNTER 2022-10-14 15:38 | Inpatient (IN) | payer MEDICARE, OTHER ==
[2022-10-14] MEDS ORDERED: ACETAMINOPHEN 500 MG TABLET PO STA (15:47)
--- NOTE | 2022-10-14 15:48 | ED Physician Documentation ---
PD HPI HEAD INJURY - Stated complaint Stated Complaint: FALL/HEAD INJ - History obtained from History obtained from: Patient - Additional information Additional information: 67-year-old with diabetes, comes from a fpc. End-stage renal disease, dialyzed Monday and Monday and was dialyzed today so would have gotten heparin this morning. He also has type 2 diabetes, coronary disease with CABG, CHF, AICD in place, ischemic cardiomyopathy, liver cell carcinoma, sleep apnea. He was on the toilet and had a dizzy spell and fell down hit the back of his head. There was no loss of consciousness and he has a mild headache. No other injuries. Initially brought in without any trauma designation, but I asked the nurse to upgrade him to a modified trauma given that he was anticoagulated this morning with heparin. He was just discharged from [facility] bout 2 days ago. His last year has been rough. He had some sort of liver tumor that was removed but not biopsied. It was cancerous though per the . The primary is not known. They "burnED the heck out of it." He was on dialysis in June and subsequently needed it again. He was not getting dialysis for couple of months but now it is thought to be permanent. She says that pre much every time after dialysis he gets hypotension for that evening and has had several syncopal episodes. PD PAST MEDICAL HISTORY - Past Medical History Cardiovascular: Hypertension, High cholesterol, Coronary artery disease, [place], Arrhythmia Neuro: Peripheral neuropathy Endocrine/Autoimmune: Type 2 diabetes : None Psych: None Musculoskeletal: None - Past Surgical History Past Surgical History: Yes General: Cholecystectomy Ortho: Rotator cuff repair Cardiovascular: CABG, Coronary stent, AICD - Present Medications Home Medications: Ambulatory Orders Medication Instructions Recorded Confirmed Aspirin [Aspirin EC] 81 mg PO DAILY 07/30/19 07/30/19 Carvedilol [Coreg] 25 mg PO BID 07/30/19 08/18/21 Empagliflozin [Jardiance] 25 mg PO DAILY 07/30/19 07/30/19 Evolocumab [Repatha Sureclick] 140 mg SQ ONCE 07/30/19 07/30/19 Exenatide Microspheres [Bydureon 2 mg SQ OAW 07/30/19 07/30/19 Pen] Ezetimibe [Zetia] 10 mg PO QPM 07/30/19 08/18/21 Insulin Regular, Human [Humulin R 160 unit SUBQ BIDWM 07/30/19 07/30/19 U-500 Kwikpen] Insulin Regular, Human [Humulin R 240 unit SUBQ QDBREAKFAST 07/30/19 07/30/19 U-500 Kwikpen] Isosorbide Dinitrate 10 - 30 mg PO DAILY 07/30/19 07/30/19 Ivabradine HCl [Corlanor] 5 mg PO BID 07/30/19 07/30/19 Loratadine [Allergy Relief] 10 mg PO DAILY 07/30/19 07/30/19 Metformin HCl 1,000 mg PO BID 07/30/19 08/18/21 [place]-3/Dha/Epa/Fish Oil [[place] 3 1,000 mg PO BID 07/30/19 07/30/19 500 Softgel] Pregabalin [Lyrica] 100 mg PO BID 07/30/19 08/06/19 Spironolactone 25 mg PO DAILY 07/30/19 08/18/21 lisinopriL [Lisinopril] 10 mg PO DAILY 07/30/19 08/18/21 Ivabradine HCl [Corlanor] 5 mg PO 08/18/21 Metoprolol Succinate [Toprol Xl] 50 mg PO BID #60 tablet 08/18/21 Prevastatin 08/18/21 08/18/21 - Allergies Allergies/Adverse Reactions: Allergies Allergy/AdvReac Type Severity Reaction Status Date / Time morphine AdvReac Nausea Verified 07/30/19 14:17 - Social History Does the pt smoke?: No Smoking Status: Never smoker Does the pt drink ETOH?: No Does the pt have substance abuse?: No - Immunizations Immunizations are current?: Yes PD ED PE NORMAL - Vitals Vital signs reviewed: Yes - General General: Alert and oriented X 3, No acute distress - HEENT HEENT: PERRL, EOMI - Neck Neck: Supple, no meningeal sign, No bony TTP - Extremities Extremities: No deformity, No tenderness to palpate, Normal ROM s pain, Other (Tunneled dialysis catheter left upper chest, nontender without signs of infection.) - Neuro Neuro: Alert and oriented X 3 Eye Opening: Spontaneous Motor: Obeys Commands Verbal: Oriented GCS Score: 15 Results - Vitals Vitals: Vital Signs - 24 hr 10/14/22 10/14/22 10/14/22 15:51 15:55 16:25 Temperature 36.8 C Heart Rate 68 65 65 Respiratory 16 15 15 Rate Blood Pressure 104/60 109/61 102/62 O2 Saturation 100 100 100 If not protocol 2 2 : Oxygen Flow, liters/minute 10/14/22 10/14/22 10/14/22 16:55 17:30 17:40 Temperature Heart Rate 70 63 63 Respiratory 15 16 Rate Blood Pressure 84/63 L 93/68 O2 Saturation 99 100 If not protocol 2 2 : Oxygen Flow, liters/minute 10/14/22 10/14/22 10/14/22 18:15 18:25 19:27 Temperature Heart Rate 51 L 59 L 62 Respiratory 21 15 25 H Rate Blood Pressure 100/63 100/60 92/54 L O2 Saturation 91 L 98 If not protocol : Oxygen Flow, liters/minute 10/14/22 10/14/22 10/14/22 19:47 20:09 20:31 Temperature Heart Rate 60 58 L 60 Respiratory 18 15 19 Rate Blood Pressure 108/66 119/76 83/48 L O2 Saturation 94 98 100 If not protocol 2 2 : Oxygen Flow, liters/minute Oxygen O2 Source Nasal cannula Oxygen Flow Rate 2 - EKG (time done) 1803 Rate: Rate (enter#) (61) Rhythm: Other (Computer reads this as a Mobitz 2, I think the extra P waves are artifactual and it does not fit as it there do not seem to be dropped beats.Will repeat) Intervals: RBBB Computer interpretation: Disagree with computer 1835 Rate: Rate (enter#) (59) Rhythm: Other (junctional) Intervals: RBBB Ischemia: No: ST elevation c/w ischemia, ST depression - Labs Labs: Laboratory Tests 10/14/22 10/14/22 10/14/22 18:10 18:10 18:10 WBC 18.5 H RBC 3.16 L Hgb 9.7 L Hct 30.4 L MCV 96.2 H MCH 30.7 MCHC 31.9 L RDW 16.8 H Plt Count 142 MPV 10.0 Neut # (Auto) Not Reportable Lymph # (Auto) Not Reportable [place] # (Auto) Not Reportable Eos # (Auto) Not Reportable Baso # (Auto) Not Reportable Absolute Nucleated RBC Not Reportable Total Counted 100 Band Neuts % (Manual) 1 Abnorm Lymph % (Manual) 0 Nucleated RBC % Not Reportable Neutrophils # (Manual) 17.0 H Lymphocytes # (Manual) 0.2 L Monocytes # (Manual) 0.9 Eosinophils # (Manual) 0.4 Basophils # (Manual) 0.0 Differential Comment MANUAL DIFFERENTIAL Platelet Estimate NORMAL (130-450,000) Platelet Morphology NORMAL APPEARANCE RBC Morph Micro Appear 2+ ANISOCYTOSIS Sodium 130 L Potassium 4.3 Chloride 91 L Carbon Dioxide 26 Anion Gap 13.0 BUN 40 H Creatinine 3.9 H Estimated GFR (MDRD) 15 L Glucose 127 H Calcium 8.7 Phosphorus 3.0 Magnesium 2.1 Total Bilirubin 0.8 AST 63 H ALT 22 Alkaline Phosphatase 215 H Troponin I High Sens 52.7 H* Total Protein 8.4 H Albumin 3.1 L Globulin 5.3 H Albumin/Globulin Ratio 0.6 L Lipase 32 10/14/22 20:00 WBC RBC Hgb Hct MCV MCH MCHC RDW Plt Count MPV Neut # (Auto) Lymph # (Auto) [place] # (Auto) Eos # (Auto) Baso # (Auto) Absolute Nucleated RBC Total Counted Band Neuts % (Manual) Abnorm Lymph % (Manual) Nucleated RBC % Neutrophils # (Manual) Lymphocytes # (Manual) Monocytes # (Manual) Eosinophils # (Manual) Basophils # (Manual) Differential Comment Platelet Estimate Platelet Morphology RBC Morph Micro Appear Sodium Potassium Chloride Carbon Dioxide Anion Gap BUN Creatinine Estimated GFR (MDRD) Glucose Calcium Phosphorus Magnesium Total Bilirubin AST ALT Alkaline Phosphatase Troponin I High Sens 53.5 H* Total Protein Albumin Globulin Albumin/Globulin Ratio Lipase - Rads (name of study) CT of the head and cervical spine were without trauma. Does have incidental findings likely related to underlying disease. Radiology: Final report received, EMP read indepedently PD Medical Decision Making - ED course ED course: 67-year-old gentleman who may be functionally anticoagulated as he was had heparin in his dialysis circuit this morning fell and hit his head. He was transition to a modified trauma as soon as the above history was elucidated and a CT of the head and neck was normal. He was preparing to go back to [facility] and the nurse had taken him out into the parking lot to get on the 's car. Once he was loaded in the 's car he became unresponsive. No pulse was noted and CPR was administered and then he became conscious again. He was brought back into the emergency department and he says he feels okay. No chest pain either primarily nor from the CPR. No trouble breathing. states he has been having syncopal episodes after dialysis for the last couple of weeks. Computer read his EKG is Mobitz type II. I disagree as there is no irregularity or dropped beats to it. That said he also has an AICD/pacemaker in place, a [employer] model which we will try to interrogate and repeat EKG. His [employer] pacemaker was interrogated. There were no arrhythmias, no VF/VT, no shocks delivered. He is being paced less than 1% of the time. Repeat EKG shows against a junctional rhythm, not quite slow enough to be paced. He continued to have lowish blood pressures here and was administered 800 mL of normal saline without much improvement. He remained is asymptomatic though and feeling well. Given his syncopal episode troponin was done and this was elevated but I think related to ESRD/dialysis and this was repeated and flat. again states that he has been syncopal repeatedly after dialysis and u sually remained hypotensive for the day. Given his leukocytosis I will order blood cultures and a lactate. He has no infectious symptoms. He had been getting IV antibiotics for osteomyelitis of the left calcaneus but he thinks that is improving. It certainly does not look impressive on exam. There is may be some mild skin discoloration but not redness or warmth. No tenderness. Discussed with him that given the persistent hypotension he should probably stay in the hospital and he was agreeable. That said he did not want to go down to [facility]. I am hopeful that maybe with just 1 night of observation his blood pressure will normalize and he will not need to be here over the weekend, his next dialysis would be on Monday. Case presented to Dr. Torres of the telehealth service at 8:55 PM. Departure - Departure Disposition: ED Place in Observation Clinical Impression: ESRD (end stage renal disease) Fall Qualifiers: Encounter type: initial encounter Qualified Code(s): W19.XXXA - Unspecified fall, initial encounter Head injury Qualifiers: Encounter type: initial encounter Qualified Code(s): S09.90XA - Unspecified injury of head, initial encounter Syncope Qualifiers: Syncope type: unspecified Qualified Code(s): R55 - Syncope and collapse Condition: Fair Record reviewed to determine appropriate education?: Yes Instructions: ED Head Injury Closed Comments: CT of the head and cervical spine were without evidence of trauma. Continue current plan of care. Return for new or worsening symptoms.
--- OUTSIDE RECORDS SUMMARY | 2022-10-14 15:50 | EXTERNAL MEDICAL SUMMARY RPT | Continuity of Care Document ---
:1955 Author Organization [place] Address [address] [place] [address] Phone Care Team Providers Name Role Phone John Fair Unavailable Unavailable Allergies and Intolerances date description facility type (no date) No Known Drug Allergies [facility] (unkn own) Encounters No information. Functional Status No information. Immunizations No information. Medications No information. Problems date description facility 2022-07-28 10:56 Type 2 diabetes mellitus with foot [facility] 2022-07-28 15:12 Type 2 diabetes mellitus with [facility] 2022-07-29 13:18 Type 2 diabetes mellitus with [facility] 2022-07-29 13:18 Local infection of the skin and subcuta [facility] tissue, unspeci 2022-08-18 15:20 Type 2 diabetes mellitus with foot [facility] 2022-08-23 11:38 Type 2 diabetes mellitus with foot [facility] 2022-08-23 11:38 Local infection of the skin and subcuta [facility] tissue, unspeci 2022-08-29 13:52 Type 2 diabetes mellitus with [facility] 2022-09-03 00:00 Implantable cardioverter-defibrillator (ICD) [facility] discharge Procedures date description facility 2022-09-03 00:00 Anaerobic Culture [facility] 2022-08-18 00:00 Radionuclide bone scan, three phase mayela dy [facility] 2022-09-03 00:00 Gram Stain [facility] 2022-09-03 00:00 X-ray of chest, single view [facility] 2022-07-28 00:00 XR foot left, 3+ views [facility] Results/Labs test date author facility value unit interpret ation Result panel 1 (unknown) (no date) (unknown) [place] (no value[facility] unknown) Result panel 2 (unknown) (no date) (unknown) [place] ([facility] value[facility] unknown) Result panel 3 (unknown) (no date) ([facility] [facility]) Result panel 4 (unknown) (no date) (unknown[facility]) Result panel 5 (unknown) (no date) (unknown[facility]) Result panel 6 (unknown) (no date) (unknown[facility]) Result panel 7 (unknown) (no date) (unknown[facility]) Result panel 8 (unknown) (no date) (unknown[facility]) Result panel 9 (unknown) (no date) (unknown[facility]) Result panel 10 (unknown) (no date) (unknown[facility]) Result panel 11 (unknown) (no date) (unknown[facility]) Result panel 12 (unknown) (no date) (unknown[facility]) Result panel 13 (unknown) (no date) (unknown[facility]) Result panel 14 (unknown) (no date) (unknown[facility]) Result panel 15 (unknown) (no date) (unknown[facility]) Result panel 16 (unknown) (no date) (unknown[facility]) Result panel 17 (unknown) (no date) (unknown[facility]) Result panel 18 (unknown) (no date) (unknown[facility]) Result panel 19 (unknown) (no date) (unknown[facility]) Result panel 20 (unknown) (no date) (unknown[facility]) Result panel 21 (unknown) (no date) (unknown[facility]) Result panel 22 (unknown) (no date) (unknown[facility]) Result panel 23 (unknown) (no date) (unknown[facility]) Result panel 24 (unknown) (no date) (unknown[facility]) Result panel 25 (unknown) (no date) (unknown[facility]) Result panel 26 (unknown) (no date) (unknown[facility]) Result panel 27 (unknown) (no date) (unknown[facility]) Result panel 28 (unknown) (no date) (unknown[facility]) Result panel 29 (unknown) (no date) (unknown[facility]) Result panel 30 (unknown) (no date) (unknown[facility]) Result panel 31 (unknown) (no date) (unknown[facility]) Result panel 32 (unknown) (no date) (unknown[facility]) Result panel 33 (unknown) (no date) (unknown[facility]) Result panel 34 (unknown) (no date) (unknown[facility]) Result panel 35 (unknown) (no date) (unknown[facility]) Result panel 36 (unknown) (no date) (unknown[facility]) Result panel 37 (unknown) (no date) (unknown[facility]) Result panel 38 (unknown) (no date) (unknown[facility]) Result panel 39 (unknown) (no date) (unknown[facility]) Result panel 40 (unknown) (no date) (unknown[facility]) Result panel 41 (unknown) (no date) (unknown[facility]) Result panel 42 (unknown) (no date) (unknown[facility]) Result panel 43 (unknown) (no date) (unknown[facility]) Result panel 44 (unknown) (no date) (unknown[facility]) Result panel 45 (unknown) (no date) (unknown[facility]) Result panel 46 (unknown) (no date) (unknown[facility]) Result panel 47 (unknown) (no date) (unknown[facility]) Result panel 48 (unknown) (no date) (unknown[facility]) Result panel 49 (unknown) (no date) (unknown[facility]) Result panel 50 (unknown) (no date) (unknown[facility]) Result panel 51 (unknown) (no date) (unknown[facility]) Result panel 52 (unknown) (no date) (unknown[facility]) Result panel 53 (unknown) (no date) (unknown[facility]) Result panel 54 (unknown) (no date) (unknown[facility]) Result panel 55 (unknown) (no date) (unknown[facility]) Result panel 56 (unknown) (no date) (unknown[facility]) Result panel 57 (unknown) (no date) (unknown) [facility]) Result panel 58 (unknown) (no date) (unknown[facility]) Result panel 59 (unknown) (no date) (unknown[facility]) Result panel 60 (unknown) (no date) (unknown[facility]) Result panel 61 (unknown) (no date) (unknown[facility]) Result panel 62 (unknown) (no date) (unknown[facility]) Result panel 63 (unknown) (no date) (unknown) [facility]) Result panel 64 (unknown) (no date) (unknown) [facility]) Result panel 65 (unknown) (no date) (unknown) [facility]) Result panel 66 (unknown) (no date) (unknown) [facility]) Result panel 67 (unknown) (no date) (unknown) [facility]) Result panel 68 (unknown) (no date) (unknown) [facility]) Result panel 69 (unknown) (no date) (unknown) [facility]) Result panel 70 (unknown) (no date) (unknown) [facility]) Result panel 71 (unknown) (no date) (unknown) [facility]) Result panel 72 (unknown) (no date) (unknown) [facility]) Result panel 73 (unknown) (no date) (unknown) [facility]) Result panel 74 (unknown) (no date) (unknown) [facility]) Result panel 75 (unknown) (no date) (unknown) [facility]) Result panel 76 (unknown) (no date) (unknown) [facility]) Result panel 77 (unknown) (no date) (unknown) [facility]) Result panel 78 (unknown) (no date) (unknown) [facility]) Result panel 79 (unknown) (no date) (unknown) (unknown) (no value) (units (un known) unknown) (unknown) (no date) (unknown) (unknown) (no value) (units 236 58-8 unknown) (unknown) (no date) (unknown) (unknown) (no value) (units 428 03-7 unknown) (unknown) (no date) (unknown) (unknown) (no value) (units (un known) unknown) (unknown) (no date) (unknown) (unknown) (no value) (units (un known) unknown) (unknown) (no date) (unknown) (unknown) Final (units (unkn own) report unknown) (unknown) (no date) (unknown) (unknown) Final (units 23617 -8 report unknown) Result panel 80 (unknown) (no (unknown) (unknown) (no value) (units (unk nown) date) unknown) (unknown) (no (unknown) (unknown) [id number] (units (unkno wn) date) unknown) (unknown) (no (unknown) (unknown) 07/28/22 (units (unkno wn) date) unknown) (unknown) (no (unknown) (unknown) [address] [place] [address] (units (unknown) date) unknown) (unknown) (no (unknown) (unknown) Accession (units (unkn own) date) Number: unknown) [id number] (unknown) (no (unknown) (unknown) Age/Sex: 67 / M (units (unknown) date) Date of Service: unknown) (unknown) (no (unknown) (unknown) [place] (units ( unknown) date) [id number] unknown) (unknown) (no (unknown) (unknown) Approved by: (units (u nknown) date) rigo Pickett) Jono on 07/28/2022 at 16:45 (unknown) (no (unknown) (unknown) Bones: No (units (unkn own) date) fractures or unknown) dislocations. At the inferior aspect of the calcaneus, (unknown) (no (unknown) (unknown) Bony and soft (units ( unknown) date) tissue changes at unknown) the inferior calcaneus indeterminate for (unknown) (no (unknown) (unknown) COMPARISON: (units (un known) date) None. unknown) (unknown) (no (unknown) (unknown) : 1955 (units (unknown) date) Acct:[id number] unknown) (unknown) (no (unknown) (unknown) Dictated by: (units (u nknown) date) rigo Pickett) Jono on 07/28/2022 at 16:42 (unknown) (no (unknown) (unknown) FINDINGS: (units (unkn own) date) unknown) (unknown) (no (unknown) (unknown) IMPRESSION: (units (un known) date) unknown) (unknown) (no (unknown) (unknown) INDICATIONS: (units (u nknown) date) diabetic foot unknown) ulcer on left heel, eval for osteo (unknown) (no (unknown) (unknown) [facility] (units (unknown) date) unknown) (unknown) (no (unknown) (unknown) Loc: RAD (units (unkno wn) date) unknown) (unknown) (no (unknown) (unknown) Ordering (units (unkno wn) date) Provider: unknown) Broderick Connors MD (unknown) (no (unknown) (unknown) PROCEDURE: XR (units ( unknown) date) FOOT LT MIN 3V unknown) (unknown) (no (unknown) (unknown) Patient: (units (unkno wn) date) Joey Ramos unknown) MR#: [id number] (unknown) (no (unknown) (unknown) Possible (units (unkno wn) date) unknown) (unknown) (no (unknown) (unknown) Procedure: XR (units ( unknown) date) foot LT min 3V unknown) (unknown) (no (unknown) (unknown) Signed (units (unkno wn) date) unknown) (unknown) (no (unknown) (unknown) Soft tissues: (units ( unknown) date) Vascular unknown) calcifications are present (unknown) (no (unknown) (unknown) TECHNIQUE: 3 (units (u nknown) date) views of the foot unknown) were acquired. (unknown) (no (unknown) (unknown) XRay Report (units (un known) date) unknown) (unknown) (no (unknown) (unknown) calcaneal (units (unkn own) date) unknown) (unknown) (no (unknown) (unknown) cortical lucency (units (unknown) date) and irregularity unknown) present in this region. (unknown) (no (unknown) (unknown) enthesopathy (units (u nknown) date) versus unknown) osteomyelitis. If clinically indicated, follow-up (unknown) (no (unknown) (unknown) ill-defined (units (un known) date) mineralization unknown) present near the insertion of the plantar fascia. (unknown) (no (unknown) (unknown) or nuclear (units (unk nown) date) medicine bone unknown) scan could be obtained for further evaluation. (unknown) (no (unknown) (unknown) radiographs, (units (u nknown) date) MRI, unknown) (unknown) (no (unknown) (unknown) there is (units (unkno wn) date) unknown) Result panel 81 (unknown) (no date) (unknown) (unknown) (no value) (units (un known) unknown) (unknown) (no date) (unknown) (unknown) No WBC seen (units (u nknown) unknown) (unknown) (no date) (unknown) (unknown) No organisms (units ( unknown) seen unknown) (unknown) (no date) (unknown) (unknown) No organisms (units ( unknown) seen unknown) Result panel 82 (unknown) (no (unknown) (unknown) (no value) (units (unk nown) date) unknown) (unknown) (no (unknown) (unknown) GNBGram negative (units (unknown) date) bacilli unknown) (unknown) (no (unknown) (unknown) Identification (units (unknown) date) and Sensitivity unknown) to Follow (unknown) (no (unknown) (unknown) LIGHT (units (unkno wn) date) unknown) (unknown) (no (unknown) (unknown) No WBC seen (units (un known) date) unknown) (unknown) (no (unknown) (unknown) No organisms (units (u nknown) date) seen unknown) (unknown) (no (unknown) (unknown) No organisms (units (u nknown) date) seen unknown) (unknown) (no (unknown) (unknown) Test not (units (unkno wn) date) performed unknown) Result panel 83 (unknown) (no (unknown) (unknown) (no value) (units (unk nown) date) unknown) (unknown) (no (unknown) (unknown) LIGHT (units (unkno wn) date) unknown) (unknown) (no (unknown) (unknown) No WBC seen (units (un known) date) unknown) (unknown) (no (unknown) (unknown) No organisms seen (units (unknown) date) unknown) (unknown) (no (unknown) (unknown) No organisms seen (units (unknown) date) unknown) (unknown) (no (unknown) (unknown) PSEAERPseudomonas (units (unknown) date) aeruginosa unknown) (unknown) (no (unknown) (unknown) Sensitivity to (units (unknown) date) Follow unknown) (unknown) (no (unknown) (unknown) Test not performed (units (unknown) date) unknown) Result panel 84 (unknown) (no (unknown) (unknown) (no value) (units (unk nown) date) unknown) (unknown) (no (unknown) (unknown) LIGHT (units (unkno wn) date) unknown) (unknown) (no (unknown) (unknown) No WBC seen (units (un known) date) unknown) (unknown) (no (unknown) (unknown) No organisms seen (units (unknown) date) unknown) (unknown) (no (unknown) (unknown) No organisms seen (units (unknown) date) unknown) (unknown) (no (unknown) (unknown) PSEAERPseudomonas (units (unknown) date) aeruginosa unknown) (unknown) (no (unknown) (unknown) Sent to Reference (units (unknown) date) Lab for Workup unknown) (unknown) (no (unknown) (unknown) Test not performed (units (unknown) date) unknown) Result panel 85 (unknown) (no date) (unknown) (unknown) COMMENT (units (unkn own) unknown) (unknown) (no date) (unknown) (unknown) COMMENT (units (unkn own) unknown) Result panel 86 (unknown) (no (unknown) (unknown) (no value) (units (unk nown) date) unknown) (unknown) (no (unknown) (unknown) An isolate of this (units (unknown) date) organism was sent to unknown) the reference lab (unknown) (no (unknown) (unknown) LIGHT (units (unkno wn) date) unknown) (unknown) (no (unknown) (unknown) No WBC seen (units (un known) date) unknown) (unknown) (no (unknown) (unknown) No organisms seen (units (unknown) date) unknown) (unknown) (no (unknown) (unknown) No organisms seen (units (unknown) date) unknown) (unknown) (no (unknown) (unknown) PSEAERPseudomonas (units (unknown) date) aeruginosa unknown) (unknown) (no (unknown) (unknown) Sent to Reference (units (unknown) date) Lab for Workup unknown) (unknown) (no (unknown) (unknown) Test not performed (units (unknown) date) unknown) (unknown) (no (unknown) (unknown) for workup. See (units (unknown) date) specimen number unknown) [id number] for results. Result panel 87 (unknown) (no (unknown) (unknown) (no value) (units (unk nown) date) unknown) (unknown) (no (unknown) (unknown) [id number] (units (unkno wn) date) unknown) (unknown) (no (unknown) (unknown) 08/18/22 (units (unkno wn) date) unknown) (unknown) (no (unknown) (unknown) [address] [place] [address] (units (unknown) date) unknown) (unknown) (no (unknown) (unknown) Accession (units (unkn own) date) Number: unknown) [id number] (unknown) (no (unknown) (unknown) Age/Sex: 67 / M (units (unknown) date) Date of Service: unknown) (unknown) (no (unknown) (unknown) [place], [place] (units ( unknown) date) [id number] unknown) (unknown) (no (unknown) (unknown) Approved by: (units (u nknown) date) Adam aGrcia M.D. unknown) on 08/19/2022 at 9:42 (unknown) (no (unknown) (unknown) COMPARISON: (units (un known) date) None. unknown) (unknown) (no (unknown) (unknown) : 1955 (units (unknown) date) Acct:[id number] unknown) (unknown) (no (unknown) (unknown) Dictated by: (units (u nknown) date) Adam Garcia M.D. unknown) on 08/19/2022 at 9:40 (unknown) (no (unknown) (unknown) FINDINGS: There (units (unknown) date) is moderately unknown) increased flow and blood pool asymmetrically to (unknown) (no (unknown) (unknown) IMPRESSION: (units (un known) date) Three-phase unknown) positive bone scan in the region of the left heel is (unknown) (no (unknown) (unknown) INDICATIONS: (units (u nknown) date) eval for unknown) osteomyelitis/non healing ulcer on L heel (unknown) (no (unknown) (unknown) [facility] (units (unknown) date) unknown) (unknown) (no (unknown) (unknown) Loc: [facility] (units (unkn own) date) unknown) (unknown) (no (unknown) (unknown) MDP, (units (unkno wn) date) unknown) (unknown) (no (unknown) (unknown) MRI could (units (unkn own) date) unknown) (unknown) (no (unknown) (unknown) Multiple bone (units ( unknown) date) scintigrams were unknown) obtained after intravenous injection of Tc-99m (unknown) (no (unknown) (unknown) Nuclear Medicine (units (unknown) date) Report unknown) (unknown) (no (unknown) (unknown) On delayed (units (unk nown) date) images, there is unknown) uptake to the midfoot joints and also focally to (unknown) (no (unknown) (unknown) Ordering (units (unkno wn) date) Provider: unknown) Broderick Connors MD (unknown) (no (unknown) (unknown) PROCEDURE: NM (units ( unknown) date) BONE 3 PHASE unknown) (unknown) (no (unknown) (unknown) Patient: (units (unkno wn) date) Joey Ramos unknown) MR#: [id number] (unknown) (no (unknown) (unknown) Procedure: NM (units ( unknown) date) bone 3 phase unknown) (unknown) (no (unknown) (unknown) RADIOPHARMACEUTI (units (unknown) date) FELIX: 20 mCi unknown) Tc-99m MDP IV. (unknown) (no (unknown) (unknown) Signed (units (unkno wn) date) unknown) (unknown) (no (unknown) (unknown) TECHNIQUE: (units (unk nown) date) unknown) (unknown) (no (unknown) (unknown) Uptake to the (units ( unknown) date) forefoot and unknown) midfoot are indeterminate and may represent (unknown) (no (unknown) (unknown) additional (units (unk nown) date) unknown) (unknown) (no (unknown) (unknown) be performed. (units ( unknown) date) unknown) (unknown) (no (unknown) (unknown) degenerative (units (u nknown) date) changes. unknown) (unknown) (no (unknown) (unknown) for (units (unkno wn) date) osteomyelitis in unknown) the given clinical context. If further imaging is needed (unknown) (no (unknown) (unknown) heel, that is (units ( unknown) date) asymmetric to the unknown) right side. (unknown) (no (unknown) (unknown) heel. (units (unkno wn) date) unknown) (unknown) (no (unknown) (unknown) including flow, (units (unknown) date) blood pool, and unknown) delayed images centered to the region of (unknown) (no (unknown) (unknown) interest. (units (unkn own) date) unknown) (unknown) (no (unknown) (unknown) suspicious (units (unk nown) date) unknown) (unknown) (no (unknown) (unknown) the left (units (unkno wn) date) unknown) Result panel 88 (unknown) (no date) (unknown) (unknown) (no value) (units (un known) unknown) (unknown) (no date) (unknown) (unknown) 1 (units (unkn own) unknown) (unknown) (no date) (unknown) (unknown) No WBC seen (units (u nknown) unknown) (unknown) (no date) (unknown) (unknown) Occasional (units (un known) (0-1) unknown) Result panel 89 (unknown) (no (unknown) (unknown) (no value) (units (unk nown) date) unknown) (unknown) (no (unknown) (unknown) 1 (units (unkno wn) date) unknown) (unknown) (no (unknown) (unknown) GNBGram negative (units (unknown) date) bacilli unknown) (unknown) (no (unknown) (unknown) Identification (units (unknown) date) and Sensitivity unknown) to Follow (unknown) (no (unknown) (unknown) MODERATE (units (unkno wn) date) unknown) (unknown) (no (unknown) (unknown) No WBC seen (units (un known) date) unknown) (unknown) (no (unknown) (unknown) Occasional (0-1) (units (unknown) date) unknown) (unknown) (no (unknown) (unknown) Test not (units (unkno wn) date) performed unknown) Result panel 90 (unknown) (no (unknown) (unknown) (no value) (units (unk nown) date) unknown) (unknown) (no (unknown) (unknown) <=0.25 (units (unkno wn) date) unknown) (unknown) (no (unknown) (unknown) <=1 (units (unkno wn) date) unknown) (unknown) (no (unknown) (unknown) <=2 (units (unkno wn) date) unknown) (unknown) (no (unknown) (unknown) 1 (units (unkno wn) date) unknown) (unknown) (no (unknown) (unknown) 2 (units (unkno wn) date) unknown) (unknown) (no (unknown) (unknown) 4 (units (unkno wn) date) unknown) (unknown) (no (unknown) (unknown) 8 (units (unkno wn) date) unknown) (unknown) (no (unknown) (unknown) MODERATE (units (unkno wn) date) unknown) (unknown) (no (unknown) (unknown) No Further Workup (units (unknown) date) unknown) (unknown) (no (unknown) (unknown) No WBC seen (units (un known) date) unknown) (unknown) (no (unknown) (unknown) Occasional (0-1) (units (unknown) date) unknown) (unknown) (no (unknown) (unknown) PSEAERPseudomonas (units (unknown) date) aeruginosa unknown) (unknown) (no (unknown) (unknown) Test not performed (units (unknown) date) unknown) Result panel 91 (unknown) (no (unknown) (unknown) (no value) (units (unk nown) date) unknown) (unknown) (no (unknown) (unknown) <=0.25 (units (unkno wn) date) unknown) (unknown) (no (unknown) (unknown) <=1 (units (unkno wn) date) unknown) (unknown) (no (unknown) (unknown) <=2 (units (unkno wn) date) unknown) (unknown) (no (unknown) (unknown) 1 (units (unkno wn) date) unknown) (unknown) (no (unknown) (unknown) 2 (units (unkno wn) date) unknown) (unknown) (no (unknown) (unknown) 4 (units (unkno wn) date) unknown) (unknown) (no (unknown) (unknown) 8 (units (unkno wn) date) unknown) (unknown) (no (unknown) (unknown) MODERATE (units (unkno wn) date) unknown) (unknown) (no (unknown) (unknown) No Further Workup (units (unknown) date) unknown) (unknown) (no (unknown) (unknown) No WBC seen (units (un known) date) unknown) (unknown) (no (unknown) (unknown) Occasional (0-1) (units (unknown) date) unknown) (unknown) (no (unknown) (unknown) PSEAERPseudomonas (units (unknown) date) aeruginosa unknown) (unknown) (no (unknown) (unknown) Test not performed (units (unknown) date) unknown) Result panel 92 (unknown) (no (unknown) (unknown) (no value) (units (unk nown) date) unknown) (unknown) (no (unknown) (unknown) 12 point review (units (unknown) date) of systems is unknown) negative except for those stated above (unknown) (no (unknown) (unknown) [id number] (units (unkno wn) date) unknown) (unknown) (no (unknown) (unknown) 67-year-old (units (un known) date) nonsmoker with unknown) history of hypertension, hyperlipidemia, diabetes (unknown) (no (unknown) (unknown) AICD discharge. (units (unknown) date) He states that unknown) he had been fine unwell and denies any (unknown) (no (unknown) (unknown) Age/Sex: 67 / M (units (unknown) date) unknown) (unknown) (no (unknown) (unknown) BACK: Nontender (units (unknown) date) without unknown) deformity or crepitance. No flank tenderness. (unknown) (no (unknown) (unknown) CARDIOVASCULAR: (units (unknown) date) Denies chest unknown) pain, palpitations, orthopnea, edema, (unknown) (no (unknown) (unknown) CARDIOVASCULAR: (units (unknown) date) Regular rate and unknown) rhythm without murmurs, gallops, or rubs. (unknown) (no (unknown) (unknown) : 1955 (units (unknown) date) Acct:[id number] unknown) (unknown) (no (unknown) (unknown) Date of (units (unkno wn) date) Service: unknown) 09/03/22 (unknown) (no (unknown) (unknown) Departure (units (unkn own) date) unknown) (unknown) (no (unknown) (unknown) Discharge Plan (units (unknown) date) unknown) (unknown) (no (unknown) (unknown) ENT: Nose (units (unkn own) date) without unknown) bleeding, purulent drainage. Throat without erythema, (unknown) (no (unknown) (unknown) ER Physician: (units ( unknown) date) Norris Schroeder unknown) D.O. (unknown) (no (unknown) (unknown) EXTREMITIES: No (units (unknown) date) edema or joint unknown) tenderness. (unknown) (no (unknown) (unknown) EYES: Pupils (units (u nknown) date) equal round and unknown) reactive. Extraocular motions intact. No scleral (unknown) (no (unknown) (unknown) Emergency (units (unkn own) date) Report unknown) (unknown) (no (unknown) (unknown) Exam Narrative: (units (unknown) date) unknown) (unknown) (no (unknown) (unknown) Exam (units (unkno wn) date) unknown) (unknown) (no (unknown) (unknown) GASTROINTESTINA (units (unknown) date) L: Abdomen soft, unknown) non-tender, nondistended. (unknown) (no (unknown) (unknown) GASTROINTESTINA (units (unknown) date) L: Denies unknown) nausea, vomiting, abdominal pain, diarrhea, (unknown) (no (unknown) (unknown) GENERAL: Denies (units (unknown) date) chills, fatigue, unknown) malaise, fever, sweats. (unknown) (no (unknown) (unknown) GENERAL: [67] (units ( unknown) date) year old patient unknown) appears stated age. Well-developed patient, in (unknown) (no (unknown) (unknown) : Denies (units (unk nown) date) dysuria, unknown) frequency, incontinence, hematuria, urinary retention. (unknown) (no (unknown) (unknown) General (units (unkno wn) date) unknown) (unknown) (no (unknown) (unknown) HEAD: (units (unkno wn) date) Atraumatic. unknown) Normocephalic. (unknown) (no (unknown) (unknown) HEENT: Denies (units ( unknown) date) sinus pain, ear unknown) pain, sore throat, difficulty swallowing, (unknown) (no (unknown) (unknown) HPI - Chest (units (un known) date) Pain unknown) (unknown) (no (unknown) (unknown) HPI narrative: (units (unknown) date) unknown) (unknown) (no (unknown) (unknown) He currently is (units (unknown) date) symptom free as unknown) well. He denies any recent medication changes (unknown) (no (unknown) (unknown) History of (units (unk nown) date) Present Illness unknown) (unknown) (no (unknown) (unknown) [facility] (units (unknown) date) [address] unknown) [place] [address] (unknown) (no (unknown) (unknown) MUSCULOSKELETAL (units (unknown) date) : denies unknown) weakness, joint pain, or bony pain (unknown) (no (unknown) (unknown) Diego Smith, (units (unknown) date) [Primary Care unknown) Provider] (unknown) (no (unknown) (unknown) NECK: Trachea (units ( unknown) date) midline. Non unknown) tender (unknown) (no (unknown) (unknown) NEURO: AOx3. (units (u nknown) date) unknown) (unknown) (no (unknown) (unknown) NEUROLOGIC: (units (un known) date) Denies weakness, unknown) headache, numbness, change in speech, confusion, (unknown) (no (unknown) (unknown) Narrative (units (unkn own) date) unknown) (unknown) (no (unknown) (unknown) Narrative: (units (unk nown) date) unknown) (unknown) (no (unknown) (unknown) PSYCHIATRIC: No (units (unknown) date) concerning unknown) psychosocial issues. (unknown) (no (unknown) (unknown) Patient: (units (unkno wn) date) Joey Ramos unknown) MR#: [id number] (unknown) (no (unknown) (unknown) RESPIRATORY: (units (un known) date) Clear to unknown) auscultation. Breath sounds equal bilaterally. No wheezes, (unknown) (no (unknown) (unknown) RESPIRATORY: (units (u nknown) date) Denies dyspnea, unknown) cough, wheezing, hemoptysis, sputum. (unknown) (no (unknown) (unknown) Referrals: (units (unk nown) date) unknown) (unknown) (no (unknown) (unknown) Review of (units (unkn own) date) Systems unknown) (unknown) (no (unknown) (unknown) SKIN: Denies (units (u nknown) date) rash, skin unknown) lesions, or other (unknown) (no (unknown) (unknown) SKIN: No rash (units ( unknown) date) or erythema of unknown) visible areas (unknown) (no (unknown) (unknown) Signed By: (units (unk nown) date) unknown) (unknown) (no (unknown) (unknown) [facility] (units ( unknown) date) [facility]. He unknown) denies headache or blurred vision. He denies chest (unknown) (no (unknown) (unknown) Stated (units (unkno wn) date) Complaint: sent unknown) by vest tailor (unknown) (no (unknown) (unknown) Time Seen by (units (u nknown) date) Provider: unknown) 09/03/22 09:48 (unknown) (no (unknown) (unknown) but states that (units (unknown) date) his AICD was unknown) calibrated about 1 week ago, his vest tailor is at (unknown) (no (unknown) (unknown) constipation, (units ( unknown) date) melena. unknown) (unknown) (no (unknown) (unknown) dizziness, (units (unk nown) date) weakness or unknown) lightheadedness, denied any shortness of breath, chest (unknown) (no (unknown) (unknown) dizziness. (units (unk nown) date) unknown) (unknown) (no (unknown) (unknown) icterus. No (units (un known) date) injection or unknown) drainage. (unknown) (no (unknown) (unknown) mild distress. (units (unknown) date) unknown) (unknown) (no (unknown) (unknown) pain or (units (unkno wn) date) shortness of unknown) breath. Denies nausea, vomiting or diarrhea. (unknown) (no (unknown) (unknown) pain, (units (unkno wn) date) diaphoresis or unknown) any symptoms whatsoever and states that it discharge once. (unknown) (no (unknown) (unknown) rales, or (units (unkn own) date) rhonchi. unknown) (unknown) (no (unknown) (unknown) seizures, (units (unkn own) date) incoordination. unknown) (unknown) (no (unknown) (unknown) tonsillar (units (unkn own) date) hypertrophy or unknown) exudate. Airway patent. (unknown) (no (unknown) (unknown) with AICD (units (unkn own) date) presents at the unknown) request of his cardiology office for evaluation an Result panel 93 (unknown) (no (unknown) (unknown) (no value) (units (unk nown) date) unknown) (unknown) (no (unknown) (unknown) 09/03/22 09:55 (units (unknown) date) unknown) (unknown) (no (unknown) (unknown) 12 point review (units (unknown) date) of systems is unknown) negative except for those stated above (unknown) (no (unknown) (unknown) [id number] (units (unkno wn) date) unknown) (unknown) (no (unknown) (unknown) 67-year-old (units (un known) date) nonsmoker with unknown) history of hypertension, hyperlipidemia, diabetes (unknown) (no (unknown) (unknown) AICD discharge. (units (unknown) date) He states that unknown) he had been fine unwell and denies any (unknown) (no (unknown) (unknown) Age/Sex: 67 / M (units (unknown) date) unknown) (unknown) (no (unknown) (unknown) Allergies (units (unkn own) date) unknown) (unknown) (no (unknown) (unknown) Allergy/AdvReac (units (unknown) date) Type Severity unknown) Reaction Status Date / Time (unknown) (no (unknown) (unknown) BACK: Nontender (units (unknown) date) without unknown) deformity or crepitance. No flank tenderness. (unknown) (no (unknown) (unknown) Basic Metabolic (units (unknown) date) Panel Stat unknown) (unknown) (no (unknown) (unknown) CARDIOVASCULAR: (units (unknown) date) Denies chest unknown) pain, palpitations, orthopnea, edema, (unknown) (no (unknown) (unknown) CARDIOVASCULAR: (units (unknown) date) Regular rate and unknown) rhythm without murmurs, gallops, or rubs. (unknown) (no (unknown) (unknown) Chest [XR chest (units (unknown) date) 1V] Stat unknown) (unknown) (no (unknown) (unknown) Chief (units (unkno wn) date) Complaint: unknown) Arrhythmia/Palpi tations (unknown) (no (unknown) (unknown) Complete Blood (units (unknown) date) Count AUTO DIFF unknown) Stat (unknown) (no (unknown) (unknown) Course (units (unkno wn) date) unknown) (unknown) (no (unknown) (unknown) : 1955 (units (unknown) date) Acct:[id number] unknown) (unknown) (no (unknown) (unknown) Date of (units (unkno wn) date) Service: unknown) 09/03/22 (unknown) (no (unknown) (unknown) Departure (units (unkn own) date) unknown) (unknown) (no (unknown) (unknown) Discharge Plan (units (unknown) date) unknown) (unknown) (no (unknown) (unknown) ED Orders (units (unkn own) date) unknown) (unknown) (no (unknown) (unknown) EKG-12 Lead (units (un known) date) Stat unknown) (unknown) (no (unknown) (unknown) ENT: Nose (units (unkn own) date) without unknown) bleeding, purulent drainage. Throat without erythema, (unknown) (no (unknown) (unknown) ER Physician: (units ( unknown) date) Norris Schroeder unknown) D.O. (unknown) (no (unknown) (unknown) EXTREMITIES: No (units (unknown) date) edema or joint unknown) tenderness. (unknown) (no (unknown) (unknown) EYES: Pupils (units (u nknown) date) equal round and unknown) reactive. Extraocular motions intact. No scleral (unknown) (no (unknown) (unknown) Emergency (units (unkn own) date) Report unknown) (unknown) (no (unknown) (unknown) Exam Narrative: (units (unknown) date) unknown) (unknown) (no (unknown) (unknown) Exam (units (unkno wn) date) unknown) (unknown) (no (unknown) (unknown) GASTROINTESTINA (units (unknown) date) L: Abdomen soft, unknown) non-tender, nondistended. (unknown) (no (unknown) (unknown) GASTROINTESTINA (units (unknown) date) L: Denies unknown) nausea, vomiting, abdominal pain, diarrhea, (unknown) (no (unknown) (unknown) GENERAL: Denies (units (unknown) date) chills, fatigue, unknown) malaise, fever, sweats. (unknown) (no (unknown) (unknown) GENERAL: [67] (units ( unknown) date) year old patient unknown) appears stated age. Well-developed patient, in (unknown) (no (unknown) (unknown) : Denies (units (unk nown) date) dysuria, unknown) frequency, incontinence, hematuria, urinary retention. (unknown) (no (unknown) (unknown) General (units (unkno wn) date) unknown) (unknown) (no (unknown) (unknown) HEAD: (units (unkno wn) date) Atraumatic. unknown) Normocephalic. (unknown) (no (unknown) (unknown) HEENT: Denies (units ( unknown) date) sinus pain, ear unknown) pain, sore throat, difficulty swallowing, (unknown) (no (unknown) (unknown) HPI - Chest (units (un known) date) Pain unknown) (unknown) (no (unknown) (unknown) HPI narrative: (units (unknown) date) unknown) (unknown) (no (unknown) (unknown) He currently is (units (unknown) date) symptom free as unknown) well. He denies any recent medication changes (unknown) (no (unknown) (unknown) History of (units (unk nown) date) Present Illness unknown) (unknown) (no (unknown) (unknown) [facility] (units (unknown) date) [address]) [place] [address] (unknown) (no (unknown) (unknown) MUSCULOSKELETAL (units (unknown) date) : denies unknown) weakness, joint pain, or bony pain (unknown) (no (unknown) (unknown) Diego Smith, (units (unknown) date) [Primary Care unknown) Provider] (unknown) (no (unknown) (unknown) NECK: Trachea (units ( unknown) date) midline. Non unknown) tender (unknown) (no (unknown) (unknown) NEURO: AOx3. (units (u nknown) date) unknown) (unknown) (no (unknown) (unknown) NEUROLOGIC: (units (un known) date) Denies weakness, unknown) headache, numbness, change in speech, confusion, (unknown) (no (unknown) (unknown) NT-proBNP (units (unkn own) date) (BNP-Adult 18+) unknown) Stat (unknown) (no (unknown) (unknown) Narrative (units (unkn own) date) unknown) (unknown) (no (unknown) (unknown) Narrative: (units (unk nown) date) unknown) (unknown) (no (unknown) (unknown) No Known Drug (units ( unknown) date) Allergies unknown) Allergy Verified 09/03/22 10:03 (unknown) (no (unknown) (unknown) Ordered: (units (unkno wn) date) unknown) (unknown) (no (unknown) (unknown) Orders (units (unkno wn) date) unknown) (unknown) (no (unknown) (unknown) PSYCHIATRIC: No (units (unknown) date) concerning unknown) psychosocial issues. (unknown) (no (unknown) (unknown) Patient: (units (unkno wn) date) Joey Ramos unknown) MR#: [id number] (unknown) (no (unknown) (unknown) Prothrombin (units (un known) date) Time INR Stat unknown) (unknown) (no (unknown) (unknown) RESPIRATORY: (units (un known) date) Clear to unknown) auscultation. Breath sounds equal bilaterally. No wheezes, (unknown) (no (unknown) (unknown) RESPIRATORY: (units (u nknown) date) Denies dyspnea, unknown) cough, wheezing, hemoptysis, sputum. (unknown) (no (unknown) (unknown) Referrals: (units (unk nown) date) unknown) (unknown) (no (unknown) (unknown) Related Data (units (u nknown) date) unknown) (unknown) (no (unknown) (unknown) Review of (units (unkn own) date) Systems unknown) (unknown) (no (unknown) (unknown) SKIN: Denies (units (u nknown) date) rash, skin unknown) lesions, or other (unknown) (no (unknown) (unknown) SKIN: No rash (units ( unknown) date) or erythema of unknown) visible areas (unknown) (no (unknown) (unknown) Signed By: (units (unk nown) date) unknown) (unknown) (no (unknown) (unknown) [facility] (units ( unknown) date) [facility]. He unknown) denies headache or blurred vision. He denies chest (unknown) (no (unknown) (unknown) Stated (units (unkno wn) date) Complaint: sent unknown) by vest tailor (unknown) (no (unknown) (unknown) Time Seen by (units (u nknown) date) Provider: unknown) 09/03/22 09:48 (unknown) (no (unknown) (unknown) Troponin + CK (units ( unknown) date) Cardiac Panel unknown) Stat (unknown) (no (unknown) (unknown) but states that (units (unknown) date) his AICD was unknown) calibrated about 1 week ago, his vest tailor is at (unknown) (no (unknown) (unknown) constipation, (units ( unknown) date) melena. unknown) (unknown) (no (unknown) (unknown) dizziness, (units (unk nown) date) weakness or unknown) lightheadedness, denied any shortness of breath, chest (unknown) (no (unknown) (unknown) dizziness. (units (unk nown) date) unknown) (unknown) (no (unknown) (unknown) icterus. No (units (un known) date) injection or unknown) drainage. (unknown) (no (unknown) (unknown) mild distress. (units (unknown) date) unknown) (unknown) (no (unknown) (unknown) pain or (units (unkno wn) date) shortness of unknown) breath. Denies nausea, vomiting or diarrhea. (unknown) (no (unknown) (unknown) pain, (units (unkno wn) date) diaphoresis or unknown) any symptoms whatsoever and states that it discharge once. (unknown) (no (unknown) (unknown) rales, or (units (unkn own) date) rhonchi. unknown) (unknown) (no (unknown) (unknown) seizures, (units (unkn own) date) incoordination. unknown) (unknown) (no (unknown) (unknown) tonsillar (units (unkn own) date) hypertrophy or unknown) exudate. Airway patent. (unknown) (no (unknown) (unknown) with AICD (units (unkn own) date) presents at the unknown) request of his cardiology office for evaluation an Result panel 94 (unknown) (no date) (unknown) (unknown) 1.1 % (unkn own) (unknown) (no date) (unknown) (unknown) 10.1 % (unkn own) (unknown) (no date) (unknown) (unknown) 10.3 % (unkn own) (unknown) (no date) (unknown) (unknown) 100 /ul (unkn own) (unknown) (no date) (unknown) (unknown) 11.2 g/dl (unkn own) (unknown) (no date) (unknown) (unknown) 16.4 % (unkn own) (unknown) (no date) (unknown) (unknown) 173 x10 3/ul (unkn own) (unknown) (no date) (unknown) (unknown) 3.66 x10 6/ul (unkn own) (unknown) (no date) (unknown) (unknown) 3.9 % (unkn own) (unknown) (no date) (unknown) (unknown) 30.5 pg (unkn own) (unknown) (no date) (unknown) (unknown) 300 /ul (unkn own) (unknown) (no date) (unknown) (unknown) 33.1 % (unkn own) (unknown) (no date) (unknown) (unknown) 33.7 % (unkn own) (unknown) (no date) (unknown) (unknown) 5200 /ul (unkn own) (unknown) (no date) (unknown) (unknown) 7.0 x10 3/ul (unkn own) (unknown) (no date) (unknown) (unknown) 700 /ul (unkn own) (unknown) (no date) (unknown) (unknown) 700 /ul (unkn own) (unknown) (no date) (unknown) (unknown) 74.6 % (unkn own) (unknown) (no date) (unknown) (unknown) 92.2 fl (unkn own) Result panel 95 (unknown) (no date) (unknown) (unknown) 1.2 (units unknown) (unknown) (unknown) (no date) (unknown) (unknown) 1.69 mg/dl (unkn own) (unknown) (no date) (unknown) (unknown) 102 u/l (unkn own) (unknown) (no date) (unknown) (unknown) 103 mmol/l (unkn own) (unknown) (no date) (unknown) (unknown) 139 mmol/l (unkn own) (unknown) (no date) (unknown) (unknown) 14.0 seconds (unkn own) (unknown) (no date) (unknown) (unknown) 202 mg/dl (unkn own) (unknown) (no date) (unknown) (unknown) 202 mg/dl (unkn own) (unknown) (no date) (unknown) (unknown) 23 mmol/l (unkn own) (unknown) (no date) (unknown) (unknown) 4.4 mmol/l (unkn own) (unknown) (no date) (unknown) (unknown) 40.8 (units unknown) (unknown) (unknown) (no date) (unknown) (unknown) 43 ml/min (unkn own) (unknown) (no date) (unknown) (unknown) 43 ml/min (unkn own) (unknown) (no date) (unknown) (unknown) 69 mg/dl (unkn own) (unknown) (no date) (unknown) (unknown) 8.8 mg/dl (unkn own) Result panel 96 (unknown) (no date) (unknown) (unknown) 0.029 ng/ml (unkn own) (unknown) (no date) (unknown) (unknown) 0.029 ng/ml (unkn own) (unknown) (no date) (unknown) (unknown) 1.69 mg/dl (unkn own) (unknown) (no date) (unknown) (unknown) 102 u/l (unkn own) (unknown) (no date) (unknown) (unknown) 103 mmol/l (unkn own) (unknown) (no date) (unknown) (unknown) 139 mmol/l (unkn own) (unknown) (no date) (unknown) (unknown) 202 mg/dl (unkn own) (unknown) (no date) (unknown) (unknown) 202 mg/dl (unkn own) (unknown) (no date) (unknown) (unknown) 23 mmol/l (unkn own) (unknown) (no date) (unknown) (unknown) 4.4 mmol/l (unkn own) (unknown) (no date) (unknown) (unknown) 40.8 (units unknown) (unknown) (unknown) (no date) (unknown) (unknown) 43 ml/min (unkn own) (unknown) (no date) (unknown) (unknown) 43 ml/min (unkn own) (unknown) (no date) (unknown) (unknown) 5430 pg/ml (unkn own) (unknown) (no date) (unknown) (unknown) 5430 pg/ml (unkn own) (unknown) (no date) (unknown) (unknown) 69 mg/dl (unkn own) (unknown) (no date) (unknown) (unknown) 8.8 mg/dl (unkn own) Result panel 97 (unknown) (no date) (unknown) (unknown) 0.029 ng/ml (unkn own) (unknown) (no date) (unknown) (unknown) 0.029 ng/ml (unkn own) (unknown) (no date) (unknown) (unknown) 1.69 mg/dl (unkn own) (unknown) (no date) (unknown) (unknown) 102 u/l (unkn own) (unknown) (no date) (unknown) (unknown) 103 mmol/l (unkn own) (unknown) (no date) (unknown) (unknown) 139 mmol/l (unkn own) (unknown) (no date) (unknown) (unknown) 2.7 % (unkn own) (unknown) (no date) (unknown) (unknown) 2.72 ng/ml (unkn own) (unknown) (no date) (unknown) (unknown) 202 mg/dl (unkn own) (unknown) (no date) (unknown) (unknown) 202 mg/dl (unkn own) (unknown) (no date) (unknown) (unknown) 23 mmol/l (unkn own) (unknown) (no date) (unknown) (unknown) 4.4 mmol/l (unkn own) (unknown) (no date) (unknown) (unknown) 40.8 (units unknown) (unknown) (unknown) (no date) (unknown) (unknown) 43 ml/min (unkn own) (unknown) (no date) (unknown) (unknown) 43 ml/min (unkn own) (unknown) (no date) (unknown) (unknown) 5430 pg/ml (unkn own) (unknown) (no date) (unknown) (unknown) 5430 pg/ml (unkn own) (unknown) (no date) (unknown) (unknown) 69 mg/dl (unkn own) (unknown) (no date) (unknown) (unknown) 8.8 mg/dl (unkn own) Result panel 98 (unknown) (no (unknown) (unknown) (no value) (units (unk nown) date) unknown) (unknown) (no (unknown) (unknown) 09/03/22 (units (unkno wn) date) 09/03/22 unknown) 09/03/22 Range/Units (unknown) (no (unknown) (unknown) 09/03/22 09:55 (units (unknown) date) unknown) (unknown) (no (unknown) (unknown) 09/03/22 10:00 (units (unknown) date) unknown) (unknown) (no (unknown) (unknown) 09/03/22 (units (unkno wn) date) unknown) (unknown) (no (unknown) (unknown) 10:00 10:00 (units (un known) date) 10:00 unknown) (unknown) (no (unknown) (unknown) 10:03 (units (unkno wn) date) unknown) (unknown) (no (unknown) (unknown) 12 point review (units (unknown) date) of systems is unknown) negative except for those stated above (unknown) (no (unknown) (unknown) [id number] (units (unkno wn) date) unknown) (unknown) (no (unknown) (unknown) 67-year-old (units (un known) date) nonsmoker with unknown) history of hypertension, hyperlipidemia, diabetes (unknown) (no (unknown) (unknown) AICD discharge. (units (unknown) date) He states that unknown) he had been fine unwell and denies any (unknown) (no (unknown) (unknown) Age/Sex: 67 / M (units (unknown) date) unknown) (unknown) (no (unknown) (unknown) Allergies (units (unkn own) date) unknown) (unknown) (no (unknown) (unknown) Allergy/AdvReac (units (unknown) date) Type Severity unknown) Reaction Status Date / Time (unknown) (no (unknown) (unknown) BACK: Nontender (units (unknown) date) without unknown) deformity or crepitance. No flank tenderness. (unknown) (no (unknown) (unknown) BUN 69 H (9-20) (units (unknown) date) mg/dL unknown) (unknown) (no (unknown) (unknown) BUN/Creatinine (units (unknown) date) Ratio 40.8 H unknown) (6-22) (unknown) (no (unknown) (unknown) Basic Metabolic (units (unknown) date) Panel Stat unknown) (unknown) (no (unknown) (unknown) Baso # (Auto) (units ( unknown) date) 100 (0-100) /uL unknown) (unknown) (no (unknown) (unknown) Baso % (Auto) (units ( unknown) date) 1.1 (0-2) % unknown) (unknown) (no (unknown) (unknown) Blood Pressure (units (unknown) date) 122/73 09/03/22 unknown) 10:03 (unknown) (no (unknown) (unknown) Blood Pressure (units (unknown) date) 122/73 unknown) (unknown) (no (unknown) (unknown) CARDIOVASCULAR: (units (unknown) date) Denies chest unknown) pain, palpitations, orthopnea, edema, (unknown) (no (unknown) (unknown) CARDIOVASCULAR: (units (unknown) date) Regular rate and unknown) rhythm without murmurs, gallops, or rubs. (unknown) (no (unknown) (unknown) CK-MB (CK-2) (units (u nknown) date) 2.72 H (<2.37) unknown) ng/mL (unknown) (no (unknown) (unknown) CK-MB (CK-2) (units (u nknown) date) Rel Index 2.7 unknown) (1.5-5.0) % (unknown) (no (unknown) (unknown) Calcium 8.8 (units (un known) date) (8.4-10.2) mg/dL unknown) (unknown) (no (unknown) (unknown) Carbon Dioxide (units (unknown) date) 23 (22-32) unknown) mmol/L (unknown) (no (unknown) (unknown) Chest [XR chest (units (unknown) date) 1V] Stat unknown) (unknown) (no (unknown) (unknown) Chief (units (unkno wn) date) Complaint: unknown) Arrhythmia/Palpi tations (unknown) (no (unknown) (unknown) Chloride 103 (units (u nknown) date) (98-107) mmol/L unknown) (unknown) (no (unknown) (unknown) Complete Blood (units (unknown) date) Count AUTO DIFF unknown) Stat (unknown) (no (unknown) (unknown) Course (units (unkno wn) date) unknown) (unknown) (no (unknown) (unknown) Creatinine 1.69 (units (unknown) date) H (0.66-1.25) unknown) mg/dL (unknown) (no (unknown) (unknown) : 1955 (units (unknown) date) Acct:[id number] unknown) (unknown) (no (unknown) (unknown) Date of (units (unkno wn) date) Service: unknown) 09/03/22 (unknown) (no (unknown) (unknown) Departure (units (unkn own) date) unknown) (unknown) (no (unknown) (unknown) Discharge Plan (units (unknown) date) unknown) (unknown) (no (unknown) (unknown) ED Orders (units (unkn own) date) unknown) (unknown) (no (unknown) (unknown) EKG-12 Lead (units (un known) date) Stat unknown) (unknown) (no (unknown) (unknown) ENT: Nose (units (unkn own) date) without unknown) bleeding, purulent drainage. Throat without erythema, (unknown) (no (unknown) (unknown) ER Physician: (units ( unknown) date) Norris Schroeder unknown) D.O. (unknown) (no (unknown) (unknown) EXTREMITIES: No (units (unknown) date) edema or joint unknown) tenderness. (unknown) (no (unknown) (unknown) EYES: Pupils (units (u nknown) date) equal round and unknown) reactive. Extraocular motions intact. No scleral (unknown) (no (unknown) (unknown) Emergency (units (unkn own) date) Report unknown) (unknown) (no (unknown) (unknown) Eos # (Auto) (units (u nknown) date) 300 (0-450) /uL unknown) (unknown) (no (unknown) (unknown) Eos % (Auto) (units (u nknown) date) 3.9 (2-4) % unknown) (unknown) (no (unknown) (unknown) Estimated GFR (units ( unknown) date) 43 L (>60) unknown) mL/min (unknown) (no (unknown) (unknown) Exam Narrative: (units (unknown) date) unknown) (unknown) (no (unknown) (unknown) Exam (units (unkno wn) date) unknown) (unknown) (no (unknown) (unknown) GASTROINTESTINA (units (unknown) date) L: Abdomen soft, unknown) non-tender, nondistended. (unknown) (no (unknown) (unknown) GASTROINTESTINA (units (unknown) date) L: Denies unknown) nausea, vomiting, abdominal pain, diarrhea, (unknown) (no (unknown) (unknown) GENERAL: Denies (units (unknown) date) chills, fatigue, unknown) malaise, fever, sweats. (unknown) (no (unknown) (unknown) GENERAL: [67] (units ( unknown) date) year old patient unknown) appears stated age. Well-developed patient, in (unknown) (no (unknown) (unknown) : Denies (units (unk nown) date) dysuria, unknown) frequency, incontinence, hematuria, urinary retention. (unknown) (no (unknown) (unknown) General (units (unkno wn) date) unknown) (unknown) (no (unknown) (unknown) Glucose 202 H (units ( unknown) date) (80-110) mg/dL unknown) (unknown) (no (unknown) (unknown) HEAD: (units (unkno wn) date) Atraumatic. unknown) Normocephalic. (unknown) (no (unknown) (unknown) HEENT: Denies (units ( unknown) date) sinus pain, ear unknown) pain, sore throat, difficulty swallowing, (unknown) (no (unknown) (unknown) HPI - Chest (units (un known) date) Pain unknown) (unknown) (no (unknown) (unknown) HPI narrative: (units (unknown) date) unknown) (unknown) (no (unknown) (unknown) Hct 33.7 L (units (unk nown) date) (41-53) % unknown) (unknown) (no (unknown) (unknown) He currently is (units (unknown) date) symptom free as unknown) well. He denies any recent medication changes (unknown) (no (unknown) (unknown) Hgb 11.2 L (units (unk nown) date) (13.5-17.5) g/dL unknown) (unknown) (no (unknown) (unknown) History of (units (unk nown) date) Present Illness unknown) (unknown) (no (unknown) (unknown) INR 1.2 (units (unkno wn) date) (0.9-1.3) unknown) (unknown) (no (unknown) (unknown) Initial Vital (units ( unknown) date) Signs unknown) (unknown) (no (unknown) (unknown) Initial Vital (units ( unknown) date) Signs: unknown) (unknown) (no (unknown) (unknown) [facility] (units (unknown) date) [address] [place] [address] unknown) [place] [address] (unknown) (no (unknown) (unknown) Lab Data (units (unkno wn) date) unknown) (unknown) (no (unknown) (unknown) Lab Results (units (un known) date) unknown) (unknown) (no (unknown) (unknown) Labs: (units (unkno wn) date) unknown) (unknown) (no (unknown) (unknown) Lymph # (Auto) (units (unknown) date) 700 L unknown) (3822-6535) /uL (unknown) (no (unknown) (unknown) Lymph % (Auto) (units (unknown) date) 10.3 L (25-40) % unknown) (unknown) (no (unknown) (unknown) MCH 30.5 (units (unkno wn) date) (26-34) PG unknown) (unknown) (no (unknown) (unknown) MCHC 33.1 (units (unkn own) date) (30-36) % unknown) (unknown) (no (unknown) (unknown) MCV 92.2 (units (unkno wn) date) (80-100) fL unknown) (unknown) (no (unknown) (unknown) MDM - Chest (units (un known) date) Pain unknown) (unknown) (no (unknown) (unknown) MUSCULOSKELETAL (units (unknown) date) : denies unknown) weakness, joint pain, or bony pain (unknown) (no (unknown) (unknown) Diego Smith, (units (unknown) date) [Primary Care unknown) Provider] (unknown) (no (unknown) (unknown) [place] # (Auto) (units ( unknown) date) 700 (0-900) /uL unknown) (unknown) (no (unknown) (unknown) [place] % (Auto) (units ( unknown) date) 10.1 (3-14) % unknown) (unknown) (no (unknown) (unknown) NECK: Trachea (units ( unknown) date) midline. Non unknown) tender (unknown) (no (unknown) (unknown) NEURO: AOx3. (units (u nknown) date) unknown) (unknown) (no (unknown) (unknown) NEUROLOGIC: (units (un known) date) Denies weakness, unknown) headache, numbness, change in speech, confusion, (unknown) (no (unknown) (unknown) NT-Pro-B (units (unkno wn) date) Natriuret Pep unknown) 5430 H (<125) pg/mL (unknown) (no (unknown) (unknown) NT-proBNP (units (unkn own) date) (BNP-Adult 18+) unknown) Stat (unknown) (no (unknown) (unknown) Narrative (units (unkn own) date) unknown) (unknown) (no (unknown) (unknown) Narrative: (units (unk nown) date) unknown) (unknown) (no (unknown) (unknown) Neut # (Auto) (units ( unknown) date) 5200 (5225-4091) unknown) /uL (unknown) (no (unknown) (unknown) Neut % (Auto) (units ( unknown) date) 74.6 (50-75) % unknown) (unknown) (no (unknown) (unknown) No Known Drug (units ( unknown) date) Allergies unknown) Allergy Verified 09/03/22 10:03 (unknown) (no (unknown) (unknown) Ordered: (units (unkno wn) date) unknown) (unknown) (no (unknown) (unknown) Orders (units (unkno wn) date) unknown) (unknown) (no (unknown) (unknown) Oxygen Delivery (units (unknown) date) Method 09/03/22 unknown) 10:03 (unknown) (no (unknown) (unknown) Oxygen Delivery (units (unknown) date) Method Room Air unknown) (unknown) (no (unknown) (unknown) PSYCHIATRIC: No (units (unknown) date) concerning unknown) psychosocial issues. (unknown) (no (unknown) (unknown) PT 14.0 H (units (unkn own) date) (10.1-12.7) unknown) SECONDS (unknown) (no (unknown) (unknown) Patient History (units (unknown) date) unknown) (unknown) (no (unknown) (unknown) Patient: (units (unkno wn) date) Joey Ramos unknown) MR#: [id number] (unknown) (no (unknown) (unknown) Plt Count 173 (units ( unknown) date) (150-400) unknown) X103/uL (unknown) (no (unknown) (unknown) Potassium 4.4 (units ( unknown) date) (3.4-5.1) mmol/L unknown) (unknown) (no (unknown) (unknown) Prothrombin (units (un known) date) Time INR Stat unknown) (unknown) (no (unknown) (unknown) Pulse Oximetry (units (unknown) date) 99 09/03/22 unknown) 10:03 (unknown) (no (unknown) (unknown) Pulse Oximetry (units (unknown) date) 99 unknown) (unknown) (no (unknown) (unknown) Pulse Rate 113 (units (unknown) date) H 09/03/22 10:03 unknown) (unknown) (no (unknown) (unknown) Pulse Rate 113 (units (unknown) date) H unknown) (unknown) (no (unknown) (unknown) RBC 3.66 L (units (unk nown) date) (4.5-5.9) unknown) X106/uL (unknown) (no (unknown) (unknown) RDW 16.4 H (units (unk nown) date) (11.6-14.8) % unknown) (unknown) (no (unknown) (unknown) RESPIRATORY: (units (un known) date) Clear to unknown) auscultation. Breath sounds equal bilaterally. No wheezes, (unknown) (no (unknown) (unknown) RESPIRATORY: (units (u nknown) date) Denies dyspnea, unknown) cough, wheezing, hemoptysis, sputum. (unknown) (no (unknown) (unknown) Referrals: (units (unk nown) date) unknown) (unknown) (no (unknown) (unknown) Related Data (units (u nknown) date) unknown) (unknown) (no (unknown) (unknown) Respiratory (units (un known) date) Rate 16 09/03/22 unknown) 10:03 (unknown) (no (unknown) (unknown) Respiratory (units (un known) date) Rate 16 unknown) (unknown) (no (unknown) (unknown) Result (units (unkno wn) date) diagrams: unknown) (unknown) (no (unknown) (unknown) Review of (units (unkn own) date) Systems unknown) (unknown) (no (unknown) (unknown) SKIN: Denies (units (u nknown) date) rash, skin unknown) lesions, or other (unknown) (no (unknown) (unknown) SKIN: No rash (units ( unknown) date) or erythema of unknown) visible areas (unknown) (no (unknown) (unknown) Signed By: (units (unk nown) date) unknown) (unknown) (no (unknown) (unknown) [facility] (units ( unknown) date) [facility]. He unknown) denies headache or blurred vision. He denies chest (unknown) (no (unknown) (unknown) Smoking Status: (units (unknown) date) Former smoker unknown) (unknown) (no (unknown) (unknown) Social History (units (unknown) date) (Reviewed unknown) 09/03/22 @ 09:55 by Norris Schroeder DO) (unknown) (no (unknown) (unknown) Sodium 139 (units (unk nown) date) (137-145) mmol/L unknown) (unknown) (no (unknown) (unknown) Stated (units (unkno wn) date) Complaint: sent unknown) by vest tailor (unknown) (no (unknown) (unknown) Temperature (units (un known) date) 98.7 F 09/03/22 unknown) 10:03 (unknown) (no (unknown) (unknown) Temperature (units (un known) date) 98.7 F unknown) (unknown) (no (unknown) (unknown) Time Seen by (units (u nknown) date) Provider: unknown) 09/03/22 09:48 (unknown) (no (unknown) (unknown) Total Creatine (units (unknown) date) Kinase 102 unknown) (55-170) U/L (unknown) (no (unknown) (unknown) Troponin + CK (units ( unknown) date) Cardiac Panel unknown) Stat (unknown) (no (unknown) (unknown) Troponin I (units (unk nown) date) 0.029 unknown) (0.01-0.034) ng/mL (unknown) (no (unknown) (unknown) Vital Signs - 8 (units (unknown) date) hr unknown) (unknown) (no (unknown) (unknown) Vital Signs (units (un known) date) unknown) (unknown) (no (unknown) (unknown) Vital signs: (units (u nknown) date) unknown) (unknown) (no (unknown) (unknown) WBC 7.0 (units (unkno wn) date) (4.5-11.0) unknown) X103/uL (unknown) (no (unknown) (unknown) [Embedded Image (units (unknown) date) Not Available] unknown) (unknown) (no (unknown) (unknown) but states that (units (unknown) date) his AICD was unknown) calibrated about 1 week ago, his vest tailor is at (unknown) (no (unknown) (unknown) constipation, (units ( unknown) date) melena. unknown) (unknown) (no (unknown) (unknown) dizziness, (units (unk nown) date) weakness or unknown) lightheadedness, denied any shortness of breath, chest (unknown) (no (unknown) (unknown) dizziness. (units (unk nown) date) unknown) (unknown) (no (unknown) (unknown) icterus. No (units (un known) date) injection or unknown) drainage. (unknown) (no (unknown) (unknown) mild distress. (units (unknown) date) unknown) (unknown) (no (unknown) (unknown) pain or (units (unkno wn) date) shortness of unknown) breath. Denies nausea, vomiting or diarrhea. (unknown) (no (unknown) (unknown) pain, (units (unkno wn) date) diaphoresis or unknown) any symptoms whatsoever and states that it discharge once. (unknown) (no (unknown) (unknown) rales, or (units (unkn own) date) rhonchi. unknown) (unknown) (no (unknown) (unknown) seizures, (units (unkn own) date) incoordination. unknown) (unknown) (no (unknown) (unknown) tonsillar (units (unkn own) date) hypertrophy or unknown) exudate. Airway patent. (unknown) (no (unknown) (unknown) with AICD (units (unkn own) date) presents at the unknown) request of his cardiology office for evaluation an Result panel 99 (unknown) (no (unknown) (unknown) (no value) (units (unk nown) date) unknown) (unknown) (no (unknown) (unknown) <Electronically (units (unknown) date) signed by Norris sierra) Alison Schroeder> (unknown) (no (unknown) (unknown) * per my (units (unkno wn) date) discussion with unknown) Cardiology please increase your metoprolol to 25 (unknown) (no (unknown) (unknown) *Please follow up (units (unknown) date) with your unknown) electrophysiologis t, call Monday, let them (unknown) (no (unknown) (unknown) *Return to (units (unk nown) date) Emergency unknown) Department if you should have any new, worsening or (unknown) (no (unknown) (unknown) *What to do: (units (u nknown) date) unknown) (unknown) (no (unknown) (unknown) *You have been (units (unknown) date) diagnosed with unknown) [AICD discharge, as we discussed your device was (unknown) (no (unknown) (unknown) 09/03/22 09/03/22 (units (unknown) date) 09/03/22 unknown) Range/Units (unknown) (no (unknown) (unknown) 09/03/22 10:00 (units (unknown) date) unknown) (unknown) (no (unknown) (unknown) 09/03/22 1256 (units ( unknown) date) unknown) (unknown) (no (unknown) (unknown) 09/03/22 (units (unkno wn) date) unknown) (unknown) (no (unknown) (unknown) 09:58 09/03/22 (units (unknown) date) unknown) (unknown) (no (unknown) (unknown) 10:00 09/03/22 (units (unknown) date) unknown) (unknown) (no (unknown) (unknown) 10:00 10:00 10:00 (units (unknown) date) unknown) (unknown) (no (unknown) (unknown) 10:00 (units (unkno wn) date) unknown) (unknown) (no (unknown) (unknown) 10:03 09/03/22 (units (unknown) date) unknown) (unknown) (no (unknown) (unknown) 10:30 09/03/22 (units (unknown) date) unknown) (unknown) (no (unknown) (unknown) 10:30 (units (unkno wn) date) unknown) (unknown) (no (unknown) (unknown) 11:00 09/03/22 (units (unknown) date) unknown) (unknown) (no (unknown) (unknown) 11:00 (units (unkno wn) date) unknown) (unknown) (no (unknown) (unknown) 12 point review (units (unknown) date) of systems is unknown) negative except for those stated above (unknown) (no (unknown) (unknown) [id number] (units (unkno wn) date) unknown) (unknown) (no (unknown) (unknown) 67-year-old (units (un known) date) nonsmoker with unknown) history of hypertension, hyperlipidemia, diabetes (unknown) (no (unknown) (unknown) AICD discharge (units (unknown) date) unknown) (unknown) (no (unknown) (unknown) AICD discharge. (units (unknown) date) He states that he unknown) had been fine unwell and denies any (unknown) (no (unknown) (unknown) Activity (units (unkno wn) date) Restrictions/Addit unknown) ional Instructions: (unknown) (no (unknown) (unknown) Age/Sex: 67 / M (units (unknown) date) unknown) (unknown) (no (unknown) (unknown) Allergies (units (unkn own) date) unknown) (unknown) (no (unknown) (unknown) Allergy/AdvReac (units (unknown) date) Type Severity unknown) Reaction Status Date / Time (unknown) (no (unknown) (unknown) BACK: Nontender (units (unknown) date) without deformity unknown) or crepitance. No flank tenderness. (unknown) (no (unknown) (unknown) BUN 69 H (9-20) (units (unknown) date) mg/dL unknown) (unknown) (no (unknown) (unknown) BUN/Creatinine (units (unknown) date) Ratio 40.8 H unknown) (6-22) (unknown) (no (unknown) (unknown) Basic Metabolic (units (unknown) date) Panel Stat unknown) (unknown) (no (unknown) (unknown) Baso # (Auto) 100 (units (unknown) date) (0-100) /uL unknown) (unknown) (no (unknown) (unknown) Baso % (Auto) 1.1 (units (unknown) date) (0-2) % unknown) (unknown) (no (unknown) (unknown) Blood Pressure (units (unknown) date) 108/65 unknown) (unknown) (no (unknown) (unknown) Blood Pressure (units (unknown) date) 111/55 L unknown) (unknown) (no (unknown) (unknown) Blood Pressure (units (unknown) date) 122/73 134/75 unknown) (unknown) (no (unknown) (unknown) CARDIOVASCULAR: (units (unknown) date) Denies chest pain, unknown) palpitations, orthopnea, edema, (unknown) (no (unknown) (unknown) CARDIOVASCULAR: (units (unknown) date) Regular rate and unknown) rhythm without murmurs, gallops, or rubs. (unknown) (no (unknown) (unknown) CC: AICD fired (units (unknown) date) unknown) (unknown) (no (unknown) (unknown) CK-MB (CK-2) 2.72 (units (unknown) date) H (<2.37) ng/mL unknown) (unknown) (no (unknown) (unknown) CK-MB (CK-2) Rel (units (unknown) date) Index 2.7 unknown) (1.5-5.0) % (unknown) (no (unknown) (unknown) Calcium 8.8 (units (un known) date) (8.4-10.2) mg/dL unknown) (unknown) (no (unknown) (unknown) Carbon Dioxide 23 (units (unknown) date) (22-32) mmol/L unknown) (unknown) (no (unknown) (unknown) Chief Complaint: (units (unknown) date) Arrhythmia/Palpita unknown) tions (unknown) (no (unknown) (unknown) Chloride 103 (units (u nknown) date) (98-107) mmol/L unknown) (unknown) (no (unknown) (unknown) Clinical (units (unkno wn) date) Impression: unknown) (unknown) (no (unknown) (unknown) Complete Blood (units (unknown) date) Count AUTO DIFF unknown) Stat (unknown) (no (unknown) (unknown) Complicating (units (u nknown) date) co-morbidities: unknown) Arrhythmia, hypertension, hyperlipidemia, age (unknown) (no (unknown) (unknown) Consultation #1: (units (unknown) date) unknown) (unknown) (no (unknown) (unknown) Consultation #2: (units (unknown) date) unknown) (unknown) (no (unknown) (unknown) Consultations (units ( unknown) date) unknown) (unknown) (no (unknown) (unknown) Consultations: (units (unknown) date) AICD interrogation unknown) specialists, cardiology (unknown) (no (unknown) (unknown) Course (units (unkno wn) date) unknown) (unknown) (no (unknown) (unknown) Creatinine 1.69 H (units (unknown) date) (0.66-1.25) mg/dL unknown) (unknown) (no (unknown) (unknown) : 1955 (units (unknown) date) Acct:[id number] unknown) (unknown) (no (unknown) (unknown) Data collected (units (unknown) date) from: Patient and unknown) (unknown) (no (unknown) (unknown) Date of Service: (units (unknown) date) 09/03/22 unknown) (unknown) (no (unknown) (unknown) Departure (units (unkn own) date) unknown) (unknown) (no (unknown) (unknown) Differential (units (u nknown) date) considered, but unknown) not limited to: Electrolyte abnormality, (unknown) (no (unknown) (unknown) Discharge Plan (units (unknown) date) unknown) (unknown) (no (unknown) (unknown) Discussion with (units (unknown) date) Cardiology, unknown) recommend to increase metoprolol to 25 b.i.d. with (unknown) (no (unknown) (unknown) Discussion: (units (un known) date) Patient presents unknown) for AICD discharge. After interrogation which (unknown) (no (unknown) (unknown) Disposition: see (units (unknown) date) below, along with unknown) detailed discharge instructions that have (unknown) (no (unknown) (unknown) ED Orders (units (unkn own) date) unknown) (unknown) (no (unknown) (unknown) EKG-12 Lead Stat (units (unknown) date) unknown) (unknown) (no (unknown) (unknown) ENT: Nose without (units (unknown) date) bleeding, purulent unknown) drainage. Throat without erythema, (unknown) (no (unknown) (unknown) ER Physician: (units ( unknown) date) Norris Schroeder D.O. unknown) (unknown) (no (unknown) (unknown) EXTREMITIES: No (units (unknown) date) edema or joint unknown) tenderness. (unknown) (no (unknown) (unknown) EYES: Pupils (units (u nknown) date) equal round and unknown) reactive. Extraocular motions intact. No scleral (unknown) (no (unknown) (unknown) Electrolytes (units (u nknown) date) within normal unknown) (unknown) (no (unknown) (unknown) Emergency Report (units (unknown) date) unknown) (unknown) (no (unknown) (unknown) Eos # (Auto) 300 (units (unknown) date) (0-450) /uL unknown) (unknown) (no (unknown) (unknown) Eos % (Auto) 3.9 (units (unknown) date) (2-4) % unknown) (unknown) (no (unknown) (unknown) Estimated GFR 43 (units (unknown) date) L (>60) mL/min unknown) (unknown) (no (unknown) (unknown) Exam Narrative: (units (unknown) date) unknown) (unknown) (no (unknown) (unknown) Exam documented (units (unknown) date) above, pertinent unknown) findings include: No significant findings, (unknown) (no (unknown) (unknown) Exam (units (unkno wn) date) unknown) (unknown) (no (unknown) (unknown) GASTROINTESTINAL: (units (unknown) date) Abdomen soft, unknown) non-tender, nondistended. (unknown) (no (unknown) (unknown) GASTROINTESTINAL: (units (unknown) date) Denies nausea, unknown) vomiting, abdominal pain, diarrhea, (unknown) (no (unknown) (unknown) GENERAL: Denies (units (unknown) date) chills, fatigue, unknown) malaise, fever, sweats. (unknown) (no (unknown) (unknown) GENERAL: [67] (units ( unknown) date) year old patient unknown) appears stated age. Well-developed patient, in (unknown) (no (unknown) (unknown) : Denies (units (unk nown) date) dysuria, unknown) frequency, incontinence, hematuria, urinary retention. (unknown) (no (unknown) (unknown) General (units (unkno wn) date) unknown) (unknown) (no (unknown) (unknown) Glucose 202 H (units ( unknown) date) (80-110) mg/dL unknown) (unknown) (no (unknown) (unknown) HEAD: Atraumatic. (units (unknown) date) Normocephalic. unknown) (unknown) (no (unknown) (unknown) HEENT: Denies (units ( unknown) date) sinus pain, ear unknown) pain, sore throat, difficulty swallowing, (unknown) (no (unknown) (unknown) HPI - Chest Pain (units (unknown) date) unknown) (unknown) (no (unknown) (unknown) HPI narrative: (units (unknown) date) unknown) (unknown) (no (unknown) (unknown) Hct 33.7 L (units (unk nown) date) (41-53) % unknown) (unknown) (no (unknown) (unknown) He currently is (units (unknown) date) symptom free as unknown) well. He denies any recent medication changes (unknown) (no (unknown) (unknown) Hgb 11.2 L (units (unk nown) date) (13.5-17.5) g/dL unknown) (unknown) (no (unknown) (unknown) History of (units (unk nown) date) Present Illness unknown) (unknown) (no (unknown) (unknown) INR 1.2 (0.9-1.3) (units (unknown) date) unknown) (unknown) (no (unknown) (unknown) Independently (units ( unknown) date) reviewed EKG as unknown) above (unknown) (no (unknown) (unknown) Initial Vital (units ( unknown) date) Signs unknown) (unknown) (no (unknown) (unknown) Initial Vital (units ( unknown) date) Signs: unknown) (unknown) (no (unknown) (unknown) Instructions: (units ( unknown) date) Automatic unknown) Cardioverter Defibrillator Implantation (unknown) (no (unknown) (unknown) [facility] (units (unknown) date) [address] [place] [address] unknown) [place] [address] (unknown) (no (unknown) (unknown) Lab Data (units (unkno wn) date) unknown) (unknown) (no (unknown) (unknown) Lab Results (units (un known) date) unknown) (unknown) (no (unknown) (unknown) Lab Test results (units (unknown) date) independently unknown) reviewed as above. Pertinent findings: (unknown) (no (unknown) (unknown) Labs: (units (unkno wn) date) unknown) (unknown) (no (unknown) (unknown) Lymph # (Auto) (units (unknown) date) 700 L (5061-1632) unknown) /uL (unknown) (no (unknown) (unknown) Lymph % (Auto) (units (unknown) date) 10.3 L (25-40) % unknown) (unknown) (no (unknown) (unknown) MCH 30.5 (26-34) (units (unknown) date) PG unknown) (unknown) (no (unknown) (unknown) MCHC 33.1 (30-36) (units (unknown) date) % unknown) (unknown) (no (unknown) (unknown) MCV 92.2 (80-100) (units (unknown) date) fL unknown) (unknown) (no (unknown) (unknown) MDM - Chest Pain (units (unknown) date) unknown) (unknown) (no (unknown) (unknown) MDM Narrative (units ( unknown) date) unknown) (unknown) (no (unknown) (unknown) MUSCULOSKELETAL: (units (unknown) date) denies weakness, unknown) joint pain, or bony pain (unknown) (no (unknown) (unknown) Diego Smith, (units (unknown) date) MD [Primary Care unknown) Provider] (unknown) (no (unknown) (unknown) Medical decision (units (unknown) date) making narrative: unknown) (unknown) (no (unknown) (unknown) Medical records (units (unknown) date) reviewed: No notes unknown) available in our EMR (unknown) (no (unknown) (unknown) [place] # (Auto) 700 (units (unknown) date) (0-900) /uL unknown) (unknown) (no (unknown) (unknown) [place] % (Auto) (units ( unknown) date) 10.1 (3-14) % unknown) (unknown) (no (unknown) (unknown) NECK: Trachea (units ( unknown) date) midline. Non unknown) tender (unknown) (no (unknown) (unknown) NEURO: AOx3. (units (u nknown) date) unknown) (unknown) (no (unknown) (unknown) NEUROLOGIC: (units (un known) date) Denies weakness, unknown) headache, numbness, change in speech, confusion, (unknown) (no (unknown) (unknown) NT-Pro-B (units (unkno wn) date) Natriuret Pep 5430 unknown) H (<125) pg/mL (unknown) (no (unknown) (unknown) NT-proBNP (units (unkn own) date) (BNP-Adult 18+) unknown) Stat (unknown) (no (unknown) (unknown) Narrative (units (unkn own) date) unknown) (unknown) (no (unknown) (unknown) Narrative: (units (unk nown) date) unknown) (unknown) (no (unknown) (unknown) Neut # (Auto) (units ( unknown) date) 5200 (4528-5346) unknown) /uL (unknown) (no (unknown) (unknown) Neut % (Auto) (units ( unknown) date) 74.6 (50-75) % unknown) (unknown) (no (unknown) (unknown) No Known Drug (units ( unknown) date) Allergies Allergy unknown) Verified 09/03/22 10:03 (unknown) (no (unknown) (unknown) Ordered: (units (unkno wn) date) unknown) (unknown) (no (unknown) (unknown) Orders (units (unkno wn) date) unknown) (unknown) (no (unknown) (unknown) Oxygen Delivery (units (unknown) date) Method Room Air unknown) (unknown) (no (unknown) (unknown) Oxygen Delivery (units (unknown) date) Method unknown) (unknown) (no (unknown) (unknown) PSYCHIATRIC: No (units (unknown) date) concerning unknown) psychosocial issues. (unknown) (no (unknown) (unknown) PT 14.0 H (units (unkn own) date) (10.1-12.7) unknown) SECONDS (unknown) (no (unknown) (unknown) Patient (units (unkno wn) date) Disposition: Home unknown) (unknown) (no (unknown) (unknown) Patient History (units (unknown) date) unknown) (unknown) (no (unknown) (unknown) Patient: (units (unkno wn) date) Joey Ramos unknown) MR#: [id number] (unknown) (no (unknown) (unknown) Plt Count 173 (units ( unknown) date) (150-400) X103/uL unknown) (unknown) (no (unknown) (unknown) Potassium 4.4 (units ( unknown) date) (3.4-5.1) mmol/L unknown) (unknown) (no (unknown) (unknown) Prothrombin Time (units (unknown) date) INR Stat unknown) (unknown) (no (unknown) (unknown) Pulse Oximetry 98 (units (unknown) date) unknown) (unknown) (no (unknown) (unknown) Pulse Oximetry 99 (units (unknown) date) 09/03/22 09:58 unknown) (unknown) (no (unknown) (unknown) Pulse Oximetry 99 (units (unknown) date) 97 unknown) (unknown) (no (unknown) (unknown) Pulse Oximetry 99 (units (unknown) date) 99 unknown) (unknown) (no (unknown) (unknown) Pulse Rate 107 H (units (unknown) date) 95 H unknown) (unknown) (no (unknown) (unknown) Pulse Rate 109 H (units (unknown) date) 09/03/22 09:58 unknown) (unknown) (no (unknown) (unknown) Pulse Rate 113 H (units (unknown) date) 109 H unknown) (unknown) (no (unknown) (unknown) Pulse Rate 96 H (units (unknown) date) unknown) (unknown) (no (unknown) (unknown) RBC 3.66 L (units (unk nown) date) (4.5-5.9) X106/uL unknown) (unknown) (no (unknown) (unknown) RDW 16.4 H (units (unk nown) date) (11.6-14.8) % unknown) (unknown) (no (unknown) (unknown) RESPIRATORY: Clear (units (unknown) date) to auscultation. unknown) Breath sounds equal bilaterally. No wheezes, (unknown) (no (unknown) (unknown) RESPIRATORY: (units (u nknown) date) Denies dyspnea, unknown) cough, wheezing, hemoptysis, sputum. (unknown) (no (unknown) (unknown) Re-evaluations: (units (unknown) date) Patient unknown) asymptomatic for duration of visit (unknown) (no (unknown) (unknown) Referrals: (units (unk nown) date) unknown) (unknown) (no (unknown) (unknown) Related Data (units (u nknown) date) unknown) (unknown) (no (unknown) (unknown) Respiratory Rate (units (unknown) date) 15 09/03/22 09:58 unknown) (unknown) (no (unknown) (unknown) Respiratory Rate (units (unknown) date) 16 15 unknown) (unknown) (no (unknown) (unknown) Respiratory Rate (units (unknown) date) 21 18 unknown) (unknown) (no (unknown) (unknown) Respiratory Rate (units (unknown) date) 23 unknown) (unknown) (no (unknown) (unknown) Result diagrams: (units (unknown) date) unknown) (unknown) (no (unknown) (unknown) Review of Systems (units (unknown) date) unknown) (unknown) (no (unknown) (unknown) SKIN: Denies (units (u nknown) date) rash, skin unknown) lesions, or other (unknown) (no (unknown) (unknown) SKIN: No rash or (units (unknown) date) erythema of unknown) visible areas (unknown) (no (unknown) (unknown) Signed By: (units (unk nown) date) unknown) (unknown) (no (unknown) (unknown) [facility] (units ( unknown) date) [facility]. He unknown) denies headache or blurred vision. He denies chest (unknown) (no (unknown) (unknown) Smoking Status: (units (unknown) date) Former smoker unknown) (unknown) (no (unknown) (unknown) Social History (units (unknown) date) (Reviewed 09/03/22 unknown) @ 09:55 by Norris Schroeder DO) (unknown) (no (unknown) (unknown) Sodium 139 (units (unk nown) date) (137-145) mmol/L unknown) (unknown) (no (unknown) (unknown) Stand Alone (units (un known) date) Forms: Patient unknown) Portal/API (unknown) (no (unknown) (unknown) Stated Complaint: (units (unknown) date) sent by unknown) vest tailor (unknown) (no (unknown) (unknown) Temperature 98.7 (units (unknown) date) F unknown) (unknown) (no (unknown) (unknown) Temperature (units (un known) date) unknown) (unknown) (no (unknown) (unknown) Time Seen by (units (u nknown) date) Provider: 09/03/22 unknown) 09:48 (unknown) (no (unknown) (unknown) Total Creatine (units (unknown) date) Kinase 102 unknown) (55-170) U/L (unknown) (no (unknown) (unknown) Troponin + CK (units ( unknown) date) Cardiac Panel Stat unknown) (unknown) (no (unknown) (unknown) Troponin I 0.029 (units (unknown) date) (0.01-0.034) ng/mL unknown) (unknown) (no (unknown) (unknown) Kulwinder Walls, (units (unknown) date) [Physician] unknown) (unknown) (no (unknown) (unknown) Vital Signs - 8 (units (unknown) date) hr unknown) (unknown) (no (unknown) (unknown) Vital Signs (units (un known) date) unknown) (unknown) (no (unknown) (unknown) Vital signs: (units (u nknown) date) unknown) (unknown) (no (unknown) (unknown) WBC 7.0 (units (unkno wn) date) (4.5-11.0) X103/uL unknown) (unknown) (no (unknown) (unknown) [Embedded Image (units (unknown) date) Not Available] unknown) (unknown) (no (unknown) (unknown) additional (units (unk nown) date) outpatient follow unknown) up (unknown) (no (unknown) (unknown) appropriately to (units (unknown) date) convert an episode unknown) of VF (unknown) (no (unknown) (unknown) are reassuring, (units (unknown) date) patient has no unknown) ongoing symptoms. Lab work well within normal. (unknown) (no (unknown) (unknown) been reviewed (units ( unknown) date) with patient as unknown) well as indications for ED re-evaluation and (unknown) (no (unknown) (unknown) but states that (units (unknown) date) his AICD was unknown) calibrated about 1 week ago, his vest tailor is at (unknown) (no (unknown) (unknown) close follow-up (units (unknown) date) unknown) (unknown) (no (unknown) (unknown) concerning (units (unk nown) date) symptoms, such as unknown) [fever greater than 101 F, shaking chills, (unknown) (no (unknown) (unknown) constipation, (units ( unknown) date) melena. unknown) (unknown) (no (unknown) (unknown) directed. (units (unkn own) date) unknown) (unknown) (no (unknown) (unknown) discussed with on (units (unknown) date) call cardio unknown) ([place]). After careful review of patient's (unknown) (no (unknown) (unknown) discussed with (units (unknown) date) community engagement representative unknown) from AICD, it has been interrogated and fired (unknown) (no (unknown) (unknown) dizziness, (units (unk nown) date) weakness or unknown) lightheadedness, denied any shortness of breath, chest (unknown) (no (unknown) (unknown) dizziness. (units (unk nown) date) unknown) (unknown) (no (unknown) (unknown) fibrillation.] (units (unknown) date) unknown) (unknown) (no (unknown) (unknown) follow-up with (units (unknown) date) his cardiology unknown) group (unknown) (no (unknown) (unknown) follow-up (units (unkn own) date) unknown) (unknown) (no (unknown) (unknown) he recommends (units ( unknown) date) increasing unknown) metoprolol to 25 mg twice daily, and will send a note (unknown) (no (unknown) (unknown) history and (units (un known) date) physical as well unknown) as today's labs, EKG and results of interrogation (unknown) (no (unknown) (unknown) icterus. No (units (un known) date) injection or unknown) drainage. (unknown) (no (unknown) (unknown) inappropriate (units ( unknown) date) firing, unknown) appropriate AICD discharge for tachyarrhythmia versus (unknown) (no (unknown) (unknown) interrogated and (units (unknown) date) appropriately unknown) converted an episode of ventricular (unknown) (no (unknown) (unknown) know you were (units ( unknown) date) seen in the unknown) emergency department and we would like you seen in (unknown) (no (unknown) (unknown) mg twice daily, (units (unknown) date) otherwise Please unknown) continue to take your regular medications as (unknown) (no (unknown) (unknown) mild distress. (units (unknown) date) unknown) (unknown) (no (unknown) (unknown) notably no (units (unk nown) date) shortness of unknown) breath, tachycardia, abdomen soft (unknown) (no (unknown) (unknown) noted appropriate (units (unknown) date) use for unknown) ventricular fibrillation, history and physical exam (unknown) (no (unknown) (unknown) other (units (unkno wn) date) unknown) (unknown) (no (unknown) (unknown) pain or shortness (units (unknown) date) of breath. Denies unknown) nausea, vomiting or diarrhea. (unknown) (no (unknown) (unknown) pain, diaphoresis (units (unknown) date) or any symptoms unknown) whatsoever and states that it discharge once. (unknown) (no (unknown) (unknown) rales, or (units (unkn own) date) rhonchi. unknown) (unknown) (no (unknown) (unknown) seizures, (units (unkn own) date) incoordination. unknown) (unknown) (no (unknown) (unknown) to the patient's (units (unknown) date) EP. Recommends unknown) typical return precautions and discharged to (unknown) (no (unknown) (unknown) tonsillar (units (unkn own) date) hypertrophy or unknown) exudate. Airway patent. (unknown) (no (unknown) (unknown) with AICD (units (unkn own) date) presents at the unknown) request of his cardiology office for evaluation an (unknown) (no (unknown) (unknown) worsening pain, (units (unknown) date) persistent unknown) vomiting or other bothersome symptoms] Social History date description facility 2022-09-03 00:00 Ex-smoker ([facility] Vital Signs date measurement value units 2022-09-03 00:00 BMI 38.6 kg/m2 2022-09-03 00:00 BP_diastolic 55 mmHg 2022-09-03 00:00 BP_systolic 111 mmHg 2022-09-03 00:00 heart_rate 96 /min 2022-09-03 00:00 height_metric 162.56 cm 2022-09-03 00:00 height_standard 64 in 2022-09-03 00:00 o2_saturation 98 % 2022-09-03 00:00 respiration_rate 23 /min 2022-09-03 00:00 temperature_metric 37.06 C 2022-09-03 00:00 temperature_standard 98.7 F 2022-09-03 00:00 weight_metric 102.05 kg 2022-09-03 00:00 weight_standard 224.98 lb
--- NOTE | 2022-10-14 17:22 | CT Report ---
PROCEDURE: CERVICAL SPINE WO INDICATIONS: head i nj TECHNIQUE: Noncontrast 3 mm thick sections acquired from the skull base to the T4 level. Sagittal and coronal r eformats were then constructed. For radiation dose reduction, the following was used: automated exp osure control, adjustment of mA and/or kV according to patient size. COMPARISON: Correlation is made with the accompanying head CT, 10/14/2022. FINDINGS: Image quality: Excellent. Bones: No fractures or dislocations. Visualized superior ribs are intact. Moderate to severe disc space narrowing is seen at C5-C6, with associated endplate irregularity and s clerosis. Focal degenerative change can be seen involving the C1-C2 interface anteriorly. Milder dege nerative changes are seen elsewhere. Soft tissues: Prevertebral soft tissues are normal in thickness. No paravertebral hematomas. No ap ical pneumothoraces. Small bilateral pleural effusions are seen, right worse than left. A left-sided dialysis catheter is partially seen. A left-sided AICD is also partially seen. Sternotom y changes are noted. Atherosclerotic calcification is seen, including involving the coronary arteries. IMPRESSION: Negative for acute fracture. Cervical spine degenerative changes are seen, which are worst at C5-C6. Small bilateral pleural effusions are seen. Additional findings: Left-sided AICD Left-sided dialysis catheter Sternotomy Reviewed by: Dong Stafford MD on 10/14/2022 4:20 PM AK Approved by: Dong Stafford MD on 10/14/2022 4:20 PM AK Station ID: [id number]
--- NOTE | 2022-10-14 17:23 | CT Report ---
PROCEDURE: HEAD WO INDICATIONS: head inj TECHNIQUE: Noncontrast 4.5 mm thick angled axial sections acquired from the foramen magnum to the vertex. For r adiation dose reduction, the following was used: automated exposure control, adjustment of mA and/or kV according to patient size. COMPARISON: Correlation is made with the accompanying cervical spine CT, 10/14/2022. FINDINGS: Image quality: Motion artifact is noted. There is streak artifact seen through the skull base. CSF spaces: Basal cisterns are patent. No extra-axial fluid collections. Ventricles are normal in size and shape. Brain: No midline shift. No intracranial masses or hemorrhage. Sauceda-white matter interface is norm al. Age-appropriate brain parenchymal volume loss and chronic small vessel ischemic change can be se en. Atherosclerotic calcification is seen. Skull and face: Calvarium and visualized facial bones are intact, without suspicious lesions. Sinuses: Visualized sinuses and mastoids are clear. IMPRESSION: Limited intracranial study, without acute hemorrhage or other significant acute abnormality. Reviewed by: Dong Stafford MD on 10/14/2022 4:21 PM AKST Approved by: Dong Stafford MD on 10/14/2022 4:21 PM AK Station ID: [id number]
[2022-10-14] MEDS ORDERED: SODIUM CHLORIDE 0.9% 500 ML IV STA (18:05)
[2022-10-14 18:20] LABS: BASOPHILS % (AUTO) 0.3 %; EOSINOPHILS % (AUTO) 0.7 %; HCT - HEMATOCRIT 30.4 % (42.0-52.0); HGB - HEMOGLOBIN 9.7 g/dL (14.0-18.0); MEAN CORPUSCULAR HEMOGLOBIN 30.7 pg (27.0-31.0); MEAN CORPUSCULAR HGB CONC 31.9 g/dL (32.0-36.0); MEAN CORPUSCULAR VOLUME 96.2 fL (80.0-94.0); MONOCYTES % (AUTO) 8.5 %; NEUTROPHILS % (AUTO) 87.8 %; PLT - PLATELET COUNT 142 10^3/uL (130-450); RED BLOOD COUNT 3.16 10^6/uL (4.70-6.10); RED CELL DISTRIBUTION WIDTH 16.8 % (12.0-15.0); WHITE BLOOD COUNT 18.5 x10^3/uL (4.8-10.8)
[2022-10-14 18:33] LABS: ABNORMAL LYMPHS % (MANUAL) 0 %
[2022-10-14 18:42] LABS: ALBUMIN 3.1 g/dL (3.2-5.5); ALBUMIN/GLOBULIN RATIO 0.6 (1.0-2.2); BILIRUBIN,TOTAL 0.8 mg/dL (0.2-1.0); CALCIUM 8.7 mg/dL (8.5-10.3); CREATININE 3.9 mg/dL (0.6-1.2); MAGNESIUM 2.1 mg/dL (1.7-2.8); POTASSIUM 4.3 mmol/L (3.5-5.0); TOTAL PROTEIN 8.4 g/dL (6.7-8.2)
[2022-10-14 18:53] LABS: BAND NEUTROPHILS % (MANUAL) 1 %; DIFFERENTIAL COMMENT MANUAL DIFFERENTIAL; EOSINOPHILS # (MANUAL) 0.4 10^3/uL (0-0.7); LYMPHOCYTES # (MANUAL) 0.2 10^3/uL (1.5-3.5); LYMPHOCYTES % (MANUAL) 1 %; MONOCYTES # (MANUAL) 0.9 10^3/uL (0.0-1.0); PLATELET ESTIMATE, MANUAL NORMAL (130-450,000) (NORMAL); PLATELET MORPHOLOGY NORMAL APPEARANCE (NORMAL); RBC MORPHOLOGY (MULTIPLE) 2+ ANISOCYTOSIS (NORMAL)
--- NOTE | 2022-10-14 21:23 | XRAY Report ---
PROCEDURE: Chest 1 View X-Ray INDICATIONS: leukocytosis TECHNIQUE: One view of the chest was acquired. COMPARISON: 08/18/2021. FINDINGS: Surgical changes and devices: There is a left internal jugular catheter extending into the right atr ium. Single lead left chest wall implantable cardiac defibrillator is demonstrated. Postsurgical olmos ges are again noted in the mediastinum. Lungs and pleura: There is pulmonary edema. Indistinct bilateral linear basilar opacities likely rep resent atelectasis. No right pleural effusion. Left lateral costophrenic angle is obscured by patient 's pacemaker. No evidence of pneumothorax. Mediastinum: Mediastinal contours appear unchanged. Heart size is enlarged. Bones and chest wall: No suspicious bony lesions. Overlying soft tissues appear unremarkable. IMPRESSION: 1. Pulmonary edema with probable atelectasis in the lung bases. Reviewed by: Cruz Pablo MD on 10/14/2022 9:22 PM PST Approved by: Cruz Pablo MD on 10/14/2022 9:22 PM PST Station ID: [id number]
--- NOTE | 2022-10-14 21:54 | HISTORY & PHYSICAL EXAMINATION ---
Chief Complaint - Chief Complaint Chief Complaint: Syncope History of Present Illness - Admitted From Admitted From:: Post dialysis on way to SNF - History Obtained From Records Reviewed: Yes History obtained from: ER and Patient and his Exam Limitations: Telemedicine - History of Present Illness HPI Comment/Other: 67-year-old with diabetes, comes from a halfway. End-stage renal disease, dialyzed Monday and Monday and was dialyzed today so would have gotten heparin this morning. He also has type 2 diabetes, coronary disease with CABG, CHF, AICD in place, ischemic cardiomyopathy, liver cell carcinoma, sleep apnea. He was on the toilet and had a dizzy spell and fell down hit the back of his head. There was no loss of consciousness and he has a mild headache. No other injuries. Initially brought in without any trauma designation, but I asked the nurse to upgrade him to a modified trauma given that he was anticoagulated this morning with heparin. He was just discharged from [facility] bout 2 days ago. His last year has been rough. He had some sort of liver tumor that was removed but not biopsied. It was cancerous though per the . The primary is not known. They "burnED the heck out of it." He was on dialysis in June and subsequently needed it again. He was not getting dialysis for couple of months but now it is thought to be permanent. She says that pre much every time after dialysis he gets hypotension for that evening and has had several syncopal episodes. 67-year-old gentleman who may be functionally anticoagulated as he was had heparin in his dialysis circuit this morning fell and hit his head. He was transition to a modified trauma as soon as the above history was elucidated and a CT of the head and neck was normal. He was preparing to go back to [facility] and the nurse had taken him out into the parking lot to get on the 's car. Once he was loaded in the 's car he became unresponsive. No pulse was noted and CPR was administered and then he became conscious again. He was brought back into the emergency department and he says he feels okay. No chest pain either primarily nor from the CPR. No trouble breathing. states he has been having syncopal episodes after dialysis for the last couple of weeks. Computer read his EKG is Mobitz type II. I disagree as there is no irregularity or dropped beats to it. That said he also has an AICD/pacemaker in place, a [employer] model which we will try to interrogate and repeat EKG. His [employer] pacemaker was interrogated. There were no arrhythmias, no VF/VT, no shocks delivered. He is being paced less than 1% of the time. Repeat EKG shows against a junctional rhythm, not quite slow enough to be paced. He continued to have lowish blood pressures here and was administered 800 mL of normal saline without much improvement. He remained is asymptomatic though and feeling well. Given his syncopal episode troponin was done and this was elevated but I think related to ESRD/dialysis and this was repeated and flat. again states that he has been syncopal repeatedly after dialysis and usually remained hypotensive for the day. Given his leukocytosis I will order blood cultures and a lactate. He has no infectious symptoms. He had been getting IV antibiotics for osteomyelitis of the left calcaneus but he thinks that is improving. It certainly does not look impressive on exam. There is may be some mild skin discoloration but not redness or warmth. No tenderness. Discussed with him that given the persistent hypotension he should probably stay in the hospital and he was agreeable. That said he did not want to go down to [facility]. I am hopeful that maybe with just 1 night of observation his blood pressure will normalize and he will not need to be here over the weekend, his next dialysis would be on Monday. 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 History - Past Medical History Cardiovascular: reports: Hypertension, High cholesterol, Coronary artery disease, [place], Arrhythmia Neuro: reports: Peripheral neuropathy Endocrine/Autoimmune: reports: Type 2 diabetes : reports: None Psych: reports: None Musculoskeletal: reports: None MRSA Hx?: No - Past Surgical History General: reports: Cholecystectomy Ortho: reports: Rotator cuff repair Cardiovascular: reports: CABG, Coronary stent, AICD - POLST Patient has POLST: Yes Meds/Allgy - Home Medications Home Medications: Ambulatory Orders Medication Instructions Recorded Confirmed Aspirin [Aspirin EC] 81 mg PO DAILY 07/30/19 07/30/19 Carvedilol [Coreg] 25 mg PO BID 07/30/19 08/18/21 Empagliflozin [Jardiance] 25 mg PO DAILY 07/30/19 07/30/19 Evolocumab [Repatha Sureclick] 140 mg SQ ONCE 07/30/19 07/30/19 Exenatide Microspheres [Bydureon 2 mg SQ OAW 07/30/19 07/30/19 Pen] Ezetimibe [Zetia] 10 mg PO QPM 07/30/19 08/18/21 Insulin Regular, Human [Humulin R 160 unit SUBQ BIDWM 07/30/19 07/30/19 U-500 Kwikpen] Insulin Regular, Human [Humulin R 240 unit SUBQ QDBREAKFAST 07/30/19 07/30/19 U-500 Kwikpen] Isosorbide Dinitrate 10 - 30 mg PO DAILY 07/30/19 07/30/19 Ivabradine HCl [Corlanor] 5 mg PO BID 07/30/19 07/30/19 Loratadine [Allergy Relief] 10 mg PO DAILY 07/30/19 07/30/19 Metformin HCl 1,000 mg PO BID 07/30/19 08/18/21 Victor-3/Dha/Epa/Fish Oil [Victor 3 1,000 mg PO BID 07/30/19 07/30/19 500 Softgel] Pregabalin [Lyrica] 100 mg PO BID 07/30/19 08/06/19 Spironolactone 25 mg PO DAILY 07/30/19 08/18/21 lisinopriL [Lisinopril] 10 mg PO DAILY 07/30/19 08/18/21 Ivabradine HCl [Corlanor] 5 mg PO 08/18/21 Metoprolol Succinate [Toprol Xl] 50 mg PO BID #60 tablet 08/18/21 Prevastatin 08/18/21 08/18/21 - Allergies Allergies/Adverse Reactions: Allergies Allergy/AdvReac Type Severity Reaction Status Date / Time morphine AdvReac Nausea Verified 07/30/19 14:17 Review of Systems - Neurological Neurological: reports: Other (Syncope) Prior Level of Functionality: Able to ambulate independently Exam - Vital Signs Vital Signs: Vital Signs x48h Temp Pulse Resp BP Pulse Ox O2 Flow Rate 10/14/22 21:43 59 L 14 106/58 L 93 2 10/14/22 21:00 59 L 16 106/67 94 2 10/14/22 20:31 60 19 83/48 L 100 2 10/14/22 20:09 58 L 15 119/76 98 2 10/14/22 19:47 60 18 108/66 94 10/14/22 19:27 62 25 H 92/54 L 98 10/14/22 18:25 59 L 15 100/60 91 L 10/14/22 18:15 51 L 21 100/63 10/14/22 17:40 63 16 93/68 100 2 10/14/22 17:30 63 15 84/63 L 99 2 10/14/22 16:55 70 10/14/22 16:25 65 15 102/62 100 2 10/14/22 15:55 65 15 109/61 100 2 10/14/22 15:51 36.8 C 68 16 104/60 100 - Physical Exam General Appearance: positive: No acute distress, Alert Eyes Bilateral: positive: Normal inspection Neck: positive: Nml inspection Respiratory: positive: No respiratory distress, Breath sounds nml Cardiovascular: positive: Regular rate & rhythm Abdomen: positive: Non-tender, Nml bowel sounds Extremities: positive: Non-tender, Full ROM Neurologic/Psychiatric: positive: Oriented x3, CN's nml (2-12) Sepsis Event Note (H) - Evaluation Current Stage of Sepsis: Ruled out Conclusion/Plan - Problem List (1) Fall Conclusion/Plan: Likely from low blood pressure work up ion ER has been negative no acute pain tylenol prn Qualifiers: Encounter type: initial encounter Qualified Code(s): W19.XXXA - Unspecified fall, initial encounter (2) Syncope Conclusion/Plan: Likely from low BP from dialysis monitor for now, ST Bari device interrogated and no concerns, may need albumin or midodrine prior to dialyssis consider orthostatsis in am Also has hx of CHF resume all home meds also hold Cardiac meds on day of daily sis prior to dialysis Qualifiers: Syncope type: unspecified Qualified Code(s): R55 - Syncope and collapse (3) ESRD (end stage renal disease) Conclusion/Plan: Next dialysis on Monday - Lab Results Fish Bones: 10/14/22 18:10 10/14/22 18:10
[2022-10-14 22:04] LABS: B. PARAPERTUSSIS- RESP PCR PAN NOT DETECTED; B. PERTUSSIS- RESP PCR PANEL NOT DETECTED; C. PNEUMONIAE- RESP PCR PANEL NOT DETECTED; CORONAVIRUS 229E-RESP PCR NOT DETECTED; CORONAVIRUS HKU1-RESP PCR NOT DETECTED; CORONAVIRUS NL63-RESP PCR NOT DETECTED; CORONAVIRUS OC43-RESP PCR NOT DETECTED; HUMAN METAPNEUMOVIRUS NOT DETECTED; INFLUENZA A- RESP PCR PANEL NOT DETECTED; INFLUENZA B - RESP PCR PANEL NOT DETECTED; M. PNEUMONIAE- RESP PCR PANEL NOT DETECTED; PARAINFLUENZA VIRUS 1 NOT DETECTED; PARAINFLUENZA VIRUS 2 NOT DETECTED; PARAINFLUENZA VIRUS 3 NOT DETECTED; PARAINFLUENZA VIRUS 4 NOT DETECTED; RHINOVIRUS/ENTEROVIRUS NOT DETECTED; RSV- RESP PCR PANEL NOT DETECTED; SARS-CoV-2 -RESP PCR PANEL NOT DETECTED
[2022-10-14] MEDS: OMEGA-3 ACID ETHYL ESTERS 1 GM CAPSULE PO SCH (22:50)
[2022-10-15] MEDS ORDERED: SODIUM CHLORIDE 0.9% 500 ML IV PRN (01:02)
[2022-10-15 05:04] LABS: BASOPHILS % (AUTO) 0.2 %; EOSINOPHILS % (AUTO) 0.5 %; HCT - HEMATOCRIT 28.4 % (42.0-52.0); HGB - HEMOGLOBIN 9.1 g/dL (14.0-18.0); LYMPHOCYTES % (AUTO) 2.2 %; MEAN CORPUSCULAR HEMOGLOBIN 31.1 pg (27.0-31.0); MEAN CORPUSCULAR VOLUME 96.9 fL (80.0-94.0); MEAN PLATELET VOLUME 10.6 fL (7.4-11.4); MONOCYTES % (AUTO) 10.3 %; NEUTROPHILS % (AUTO) 85.9 %; PLT - PLATELET COUNT 139 10^3/uL (130-450); RED BLOOD COUNT 2.93 10^6/uL (4.70-6.10); WHITE BLOOD COUNT 18.6 x10^3/uL (4.8-10.8)
[2022-10-15 05:17] LABS: ABNORMAL LYMPHS % (MANUAL) 0 %
[2022-10-15 05:20] LABS: ALBUMIN 3.1 g/dL (3.2-5.5); ALBUMIN/GLOBULIN RATIO 0.6 (1.0-2.2); BILIRUBIN,TOTAL 0.9 mg/dL (0.2-1.0); CALCIUM 8.7 mg/dL (8.5-10.3); CREATININE 4.1 mg/dL (0.6-1.2); POTASSIUM 4.5 mmol/L (3.5-5.0); TOTAL PROTEIN 8.3 g/dL (6.7-8.2)
[2022-10-15 05:41] LABS: BAND NEUTROPHILS % (MANUAL) 5 %; DIFFERENTIAL COMMENT MANUAL DIFFERENTIAL; EOSINOPHILS # (MANUAL) 0.2 10^3/uL (0-0.7); LYMPHOCYTES # (MANUAL) 1.1 10^3/uL (1.5-3.5); LYMPHOCYTES % (MANUAL) 6 %; MONOCYTES # (MANUAL) 1.9 10^3/uL (0.0-1.0); NEUTROPHILS # (MANUAL) 15.4 10^3/uL (1.5-6.6); PLATELET ESTIMATE, MANUAL NORMAL (130-450,000) (NORMAL); RBC MORPHOLOGY (MULTIPLE) NORMAL APPEARANCE (NORMAL)
[2022-10-15] MEDS ORDERED: [UNRECOGNIZED DRUG - OTHER] SUBQ SCH (08:00)
[2022-10-15] MEDS ORDERED: INSULN SUBQ SCH (08:00)
[2022-10-15] MEDS ORDERED: INSULIN REGULAR HUMAN 500 UNIT/ML SUBQ SCH (08:00)
--- NOTE | 2022-10-15 08:14 | PHARMACY PROGRESS NOTE ---
- Best Possible Medication History Admit Date and Time: 10/14/222137 Processed by: Pharmacy Medication History completed: Yes Secondary Source(s): Insurance records, Facility MAR as ONLY source As the person ultimately responsible for medication therapy, providers are able to order a medication from an existing home medication list in [facility] via the "Reconcile Routine" prior to Confirmation of that medication by support team assoc. Such practice is discouraged except when the physician, in their clinical judgment, deems that a medical need exists for a medication without regard to previous use.
[2022-10-15] MEDS ORDERED: INSULIN LISPRO 100 UNIT/ML SUBQ SCH (08:30)
[2022-10-15] MEDS: allopurinoL 100 MG TABLET PO SCH (08:44)
[2022-10-15] MEDS: SODIUM CHLORIDE FLUSH 0.9% 10 ML SYRINGE IVP SCH ×3 (08:44→20:31)
[2022-10-15] MEDS: PREGABALIN 100 MG CAPSULE PO SCH ×2 (08:44→20:30)
[2022-10-15] MEDS: OMEGA-3 ACID ETHYL ESTERS 1 GM CAPSULE PO SCH ×2 (08:44→20:30)
[2022-10-15] MEDS: ASPIRIN EC 81 MG TABLET PO SCH (08:44)
[2022-10-15] MEDS ORDERED: METOPROLOL SUCCINATE 50 MG TABLET PO SCH (09:00)
[2022-10-15] MEDS ORDERED: AMIODARONE 200 MG TABLET PO SCH (09:00)
[2022-10-15] MEDS ORDERED: INSULIN GLARGINE 100 UNIT/ML SQ SCH (09:00)
[2022-10-15] MEDS: INSULIN GLARGINE-YFGN 300 UNIT/3 ML PEN SUBQ SCH (09:16)
[2022-10-15] MEDS ORDERED: MIDODRINE 2.5 MG TABLET PO ONE (10:01)
[2022-10-15] MEDS: INSULIN LISPRO 300 UNIT/3 ML PEN SUBQ SCH ×3 (12:25→20:30)
--- NOTE | 2022-10-15 13:32 | PROVIDER PROGRESS NOTE ---
Hospitalist Cross-cover Note - Cross-Cover Note Cross-Cover Note: Staff assist was called to his room for a Rapid Response at approximately noon today. I responded. The patient had just been getting an orthostatic VS check and had gone from supine to sitting. He then had syncope, and was helped into bed and put in [place], per RN report to me. Pt was in his bed, in Trendelenburg position, eyes were open but he was not focusing, not answering to his name being called. Blood pressure was being taken, he was breathing on his own. The initial vital signs were 111/50, heart rate 70, O2 saturation 89% on room air. The patient was not in distress. In approximately 15 to 30 seconds he answered to his name, turned and followed with his eyes. He did state that he was dizzy. Blood pressure repeat in Trendelenburg position was 120/50. Fingerstick glucose check was 98. A repeat fingerstick glucose check was 122. The was at bedside and described what happened and repeated what the RN Shweta told me. The also gave me a summary of the recent hospital stay at [facility] from 09/27/2022 to 10/12/2022 and the preceding foot infection and new ESRD with dialysis starting several mos ago. He has had multiple episodes of syncope following dialysis. He knows to stay in bed when he feels this way. Nobody has tried Midodrine on him. The patient was re-evaluated by me: he was awake and alert, oriented x3. Blood pressure was 128/70 and he was able to be sat upright, drinking orange juice, had no complaints. Telemetry strips were then reviewed by me: The patient was in A-fib versus junctional rhythm, rate 45-70, with a very wide QRS complex. During that syncopal event there were at least 2 episodes of V. tach, multifocal, at a rapid rate of approximately 270, one was a 5-beat run, another was a 9 beat run. There was also 1 4-beat run of slow V. tach at a rate of 70 Discharge summary records had just arrived from the [facility] stay and I reviewed them. This patient has ischemic cardiomyopathy with EF of about 40% and has a single lead AICD, the defibrillator fired at least 3 times over the past month. (In our ER yesterday, the defibrillator was interrogated and there were no further defibrillations since the last interrogation). Patient has end-stage renal disease and is on hemodialysis 3 times a week. He went to [facility] for PT rehab and because it is in proximity to hemodialysis in [place]. The patient is to get his IV ceftazidime 3 times a week during those dialysis sessions. He was on Mexilitene while at [facility] initially. Cardiology wants him on a loading dose of Amiodarone 400 mg twice daily with a slow decrease down over weeks, and during that hospital stay Cardiology stopped his Metoprolol succinate. However on the discharge orders to [facility], the Hos[italist continued the Metoprolol succinate. The defibrillator backup rate is set at 40 Lantus insulin 40 units subcu daily and sliding scale coverage The patient had had a resting 12-lead EKG done today before this syncopal event which I interpreted. It showed: accelerated junctional rhythm, rate 74, RBBB with a very wide QRS of 182 msec. Since EKG from 10/14/2022 at 1835, similar rhythm but the QRS duration has widened Imp: Recurrent syncope Ventricular flutter, self-limited therefore no defibrillation took place Cardiomyopathy Junctional rhythm with very wide and abnormal nez perce QRS complex Defibrillator backup pacer rate is set at 40 Hypotension following hemodialysis, which causes orthostatic syncope ESRD on dialysis for 3 and half hours on Monday Diabetic foot infection on ceftazidime 3 times daily, during dialysis session Diabetes mellitus on insulin Plan: We will admit to Inpatient status. He is not medically cleared to be discharged because of recurrent syncope. He will be moved from [facility] telemetry bed to the ICU We will work on getting the patient transferred to [facility] under the care of his drawing operator and his flatwork catcher, as he will be needing hemodialysis in 1 to 2 days. Critical care time spent: 60 min
--- NOTE | 2022-10-15 13:35 | PROVIDER PROGRESS NOTE ---
Assessment/Plan - Problem List (1) Syncope Qualifiers: Syncope type: unspecified Qualified Code(s): R55 - Syncope and collapse Assessment/Plan: The patient gets recurrent syncope after having hemodialysis. Nobody has tried him on midodrine, according to the patient and the was at bedside. He has documented low blood pressures when he has these syncopal events, suggesting that too much fluid is taken off at dialysis. He has only had dialysis on Monday for approximately a month. Before that he had daily dialysis in June then was able to stop dialysis then again needed daily dialysis resumed in early September this month. Plan: Will obtain records to review, from his hospitalization at [facility] which was from 09/27/2022 to 10/12/2022 Will adjust medications in order to try to prevent hypotensive episodes Follow orthostatic vital signs every shift We will order DARIN stockings on in am, off at hs, for venous compression support We will likely start midodrine, probably just on hemodialysis days. If the patient can be stabilized with a recheck of orthostatic vital signs, he can be discharged today. This plan was discussed with the patient and at bedside and they are both in agreement. (2) Leukocytosis Assessment/Plan: The reason he was kept overnight in observation was because of this high white count of 18. No obvious source of infection was found however. It was felt to be demargination from the stress of the event Plan: Since white blood count is still elevated, this is of concern. Apparently he is on scheduled IV antibiotics for a chronic diabetic foot infection. Obtain the discharge summary from his recent hospitalization at [facility] to review his course, what antibiotic and the CBC (3) ESRD (end stage renal disease) Assessment/Plan: The patient gets recurrent syncope after having hemodialysis. Nobody has tried him on midodrine, according to the patient and the was at bedside. He has documented low blood pressures when he has these syncopal events, suggesting that too much fluid is taken off at dialysis. He has only had dialysis on Monday for approximately a month. Before that he had daily dialysis in June then was able to stop dialysis then again needed daily dialysis resumed in early September this month. Plan: Will obtain records to review, from his hospitalization at [facility] which was from 09/27/2022 to 10/12/2022 Will adjust medications in order to try to prevent hypotensive episodes Follow orthostatic vital signs every shift We will order DARIN stockings on in am, off at hs, for venous compression support We will likely start midodrine, probably just on hemodialysis days. If the patient can be stabilized with a recheck of orthostatic vital signs, he can be discharged today. This plan was discussed with the patient and at bedside and they are both in agreement. (4) Cardiomyopathy Assessment/Plan: Patient is currently euvolemic, despite his chest x-ray being read as pulmonary edema. He is saturating 98% on room air at rest We have no prior echo here to know his ejection fraction. I asked the patient if he knows his number and he thinks he remembers 37% He has an AICD, on x-ray it is read as being a single lead device Plan: When pharmacy has reconciled his medications, will resume his meds for CHF (5) DM type 2 (diabetes mellitus, type 2) Assessment/Plan: As per history. Plan: We will change his regular diet, ordered by the telemedicine night doctor, to a diabetic diet Will order sliding scale insulin coverage, hypoglycemia protocol, before meals and at bedtime fingerstick checks. We will obtain records to assure what his long-acting insulin dose is, and order Lantus - Current Meds Current Meds: Current Medications Generic Name Dose Route Start Last Admin Trade Name Kodiq PRN Reason Stop Dose Admin Allopurinol 100 mg 10/15/22 09:00 10/15/22 08:44 Allopurinol 100 Mg Tablet PO 100 mg DAILY GIBRAN Administration Aspirin 81 mg 10/15/22 09:00 10/15/22 08:44 Aspirin Ec 81 Mg Tablet PO 81 mg DAILY GIBRAN Administration Insulin Glargine-yfgn 20 unit 10/15/22 09:00 10/15/22 09:16 Insulin Glargine-Yfgn 300 Unit/3 Ml Pen SUBQ 20 unit DAILY GIBRAN Administration Insulin Human Lispro 1 - 5 unit 10/15/22 12:00 10/15/22 12:25 Insulin Lispro 300 Unit/3 Ml Pen SUBQ Not Given 0800,1200,1700,2100 GIBRAN Protocol Wiziz-[id number] Ethyl Esters 1 gm 10/14/22 23:00 10/15/22 08:44 [place]-3 Acid Ethyl Esters 1 Gm Capsule PO 1 gm BID GIBRAN Administration Pregabalin 100 mg 10/15/22 09:00 10/15/22 08:44 Pregabalin 100 Mg Capsule PO 100 mg BID GIBRAN Administration Sodium Chloride 10 ml 10/15/22 09:00 10/15/22 08:44 Sodium Chloride Flush 0.9% 10 Ml Syringe IVP 10 ml 0100,0900,1700 GIBRAN Administration - Lab Result Fish Bone Diagrams: 10/15/22 04:41 10/15/22 04:41 - EKG Results EKG Interpreted Independently: Yes EKG Comparison: Changed from prior EKG EKG Findings: Accelerated junctional rhythm, right bundle branch block with an extreme right axis deviation and very wide QRS of 182 msec. Since EKG from 10/14/2022 at 1835, QRS duration has widened. - Additional Planning My Orders: My Active Orders 10/15/22 08:20 Orthostatic [Vital Signs - Orthostatic] [RC] QSHIFT Telemetry (24 Hour) [RC] Q4HR 10/15/22 08:32 Blood Glucose Checks - Eating [RC] 0800,1200,1700,2100 Initiate Hypoglycemia Protocol [RC] .protocol 10/15/22 09:00 Aspirin EC [Ecotrin] 81 mg PO DAILY Insulin Glargine-Yfgn [Semglee] 20 unit SUBQ DAILY allopurinoL [Zyloprim] 100 mg PO DAILY 10/15/22 10:06 Miscellaenous Nursing Order [RC] QSHIFT DARIN Hose [RC] QSHIFT 10/15/22 10:14 Home [Home CPAP/BiPAP] [RC] .ONCE 10/15/22 Lunch Carb-controlled Diet [DIET] 10/15/22 12:00 Insulin Lispro [Humalog Kwikpen U-100] 1 - 5 unit SUBQ 0800,1200,1700,2100 10/15/22 12:16 Admit [Admit \ Transfer \ Status] [RC] .ONCE 10/16/22 09:00 Metoprolol Succinate [Toprol Xl] 12.5 mg PO DAILY Subjective - Subjective Patient Reports: Resting Comfortably, No Complaints Objective Vital Signs: Vital Signs - 24 hr 10/14/22 10/14/22 10/14/22 15:51 15:55 16:25 Temperature 36.8 C Heart Rate 68 65 65 Heart Rate [ Brachial] Respiratory 16 15 15 Rate Blood Pressure 104/60 109/61 102/62 Blood Pressure [Left Brachial artery] Blood Pressure [Right Brachial artery] O2 Saturation 100 100 100 If not protocol 2 2 : Oxygen Flow, liters/minute 10/14/22 10/14/22 10/14/22 16:55 17:30 17:40 Temperature Heart Rate 70 63 63 Heart Rate [ Brachial] Respiratory 15 16 Rate Blood Pressure 84/63 L 93/68 Blood Pressure [Left Brachial artery] Blood Pressure [Right Brachial artery] O2 Saturation 99 100 If not protocol 2 2 : Oxygen Flow, liters/minute 10/14/22 10/14/22 10/14/22 18:15 18:25 19:27 Temperature Heart Rate 51 L 59 L 62 Heart Rate [ Brachial] Respiratory 21 15 25 H Rate Blood Pressure 100/63 100/60 92/54 L Blood Pressure [Left Brachial artery] Blood Pressure [Right Brachial artery] O2 Saturation 91 L 98 If not protocol : Oxygen Flow, liters/minute 10/14/22 10/14/22 10/14/22 19:47 20:09 20:31 Temperature Heart Rate 60 58 L 60 Heart Rate [ Brachial] Respiratory 18 15 19 Rate Blood Pressure 108/66 119/76 83/48 L Blood Pressure [Left Brachial artery] Blood Pressure [Right Brachial artery] O2 Saturation 94 98 100 If not protocol 2 2 : Oxygen Flow, liters/minute 10/14/22 10/14/22 10/14/22 21:00 21:43 22:22 Temperature Heart Rate 59 L 59 L Heart Rate [ Brachial] Respiratory 16 14 Rate Blood Pressure 106/67 106/58 L Blood Pressure [Left Brachial artery] Blood Pressure [Right Brachial artery] O2 Saturation 94 93 If not protocol 2 2 0 : Oxygen Flow, liters/minute 10/14/22 10/15/22 10/15/22 22:29 03:49 08:11 Temperature 36.4 C L 36.9 C 36.8 C Heart Rate Heart Rate [ 58 L 60 76 Brachial] Respiratory 24 20 Rate Blood Pressure Blood Pressure 100/54 L 96/48 L 101/52 L [Left Brachial artery] Blood Pressure 94/53 L [Right Brachial artery] O2 Saturation 97 97 If not protocol 2 2 2 : Oxygen Flow, liters/minute 10/15/22 10/15/22 10/15/22 08:35 11:32 12:02 Temperature 37.1 C Heart Rate Heart Rate [ 69 Brachial] Respiratory 18 Rate Blood Pressure Blood Pressure 108/60 123/64 [Left Brachial artery] Blood Pressure 99/58 L [Right Brachial artery] O2 Saturation 98 97 If not protocol 2 2 : Oxygen Flow, liters/minute Oxygen O2 Source Nasal cannula Oxygen Flow Rate 2 I&O (Last 24 Hrs): Intake and Output Totals x24h 10/13/22 10/14/22 10/15/22 23:59 23:59 23:59 Intake Total 500 1132 Balance 500 1132 General: Alert, Oriented x3 HEENT: Mucous membr. moist/pink Neck: Supple, Other (Obese and cannot evaluate JVD) Neuro: Alert, Other (Motor exam is grossly normal) Cardiovascular: Regular rate, No murmurs Respiratory: No respiratory distress, Breath sounds nml Abdomen: Soft, Other (Obese with pannus) Extremities: No clubbing, Other (L Foot is bandaged) - Results Results: Laboratory Results WBC 18.6 x10^3/uL (4.8-10.8) H 10/15/22 04:41 RBC 2.93 10^6/uL (4.70-6.10) L 10/15/22 04:41 Hgb 9.1 g/dL (14.0-18.0) L 10/15/22 04:41 Hct 28.4 % (42.0-52.0) L 10/15/22 04:41 MCV 96.9 fL (80.0-94.0) H 10/15/22 04:41 MCH 31.1 pg (27.0-31.0) H 10/15/22 04:41 MCHC 32.0 g/dL (32.0-36.0) 10/15/22 04:41 RDW 17.0 % (12.0-15.0) H 10/15/22 04:41 Plt Count 139 10^3/uL (130-450) 10/15/22 04:41 MPV 10.6 fL (7.4-11.4) 10/15/22 04:41 Neut # (Auto) Not Reportable 10/15/22 04:41 Lymph # (Auto) Not Reportable 10/15/22 04:41 [place] # (Auto) Not Reportable 10/15/22 04:41 Eos # (Auto) Not Reportable 10/15/22 04:41 Baso # (Auto) Not Reportable 10/15/22 04:41 Absolute Nucleated RBC Not Reportable 10/15/22 04:41 Total Counted 100 10/15/22 04:41 Band Neuts % (Manual) 5 % (0-10) 10/15/22 04:41 Abnorm Lymph % (Manual) 0 % 10/15/22 04:41 Nucleated RBC % Not Reportable 10/15/22 04:41 Neutrophils # (Manual) 15.4 10^3/uL (1.5-6.6) H 10/15/22 04:41 Lymphocytes # (Manual) 1.1 10^3/uL (1.5-3.5) L 10/15/22 04:41 Monocytes # (Manual) 1.9 10^3/uL (0.0-1.0) H 10/15/22 04:41 Eosinophils # (Manual) 0.2 10^3/uL (0-0.7) 10/15/22 04:41 Basophils # (Manual) 0.0 10^3/uL (0-0.1) 10/15/22 04:41 Differential Comment MANUAL DIFFERENTIAL 10/15/22 04:41 Platelet Estimate NORMAL (130-450,000) (NORMAL) 10/15/22 04:41 Platelet Morphology NORMAL APPEARANCE (NORMAL) 10/14/22 18:10 RBC Morph Micro Appear NORMAL APPEARANCE (NORMAL) 10/15/22 04:41 Sodium 132 mmol/L (135-145) L 10/15/22 04:41 Potassium 4.5 mmol/L (3.5-5.0) 10/15/22 04:41 Chloride 93 mmol/L (101-111) L 10/15/22 04:41 Carbon Dioxide 29 mmol/L (21-32) 10/15/22 04:41 Anion Gap 10.0 (6-13) 10/15/22 04:41 BUN 47 mg/dL (6-20) H 10/15/22 04:41 Creatinine 4.1 mg/dL (0.6-1.2) H 10/15/22 04:41 Estimated GFR (MDRD) 15 (>89) L 10/15/22 04:41 Glucose 85 mg/dL (70-100) 10/15/22 04:41 Lactic Acid 1.4 mmol/L (0.5-2.2) 10/14/22 20:56 Calcium 8.7 mg/dL (8.5-10.3) 10/15/22 04:41 Phosphorus 3.0 mg/dL (2.5-4.6) 10/14/22 18:10 Magnesium 2.1 mg/dL (1.7-2.8) 10/14/22 18:10 Total Bilirubin 0.9 mg/dL (0.2-1.0) 10/15/22 04:41 AST 59 IU/L (10-42) H 10/15/22 04:41 ALT 22 IU/L (10-60) 10/15/22 04:41 Alkaline Phosphatase 207 IU/L (42-121) H 10/15/22 04:41 Troponin I High Sens 53.5 ng/L (2.3-19.7) H* 10/14/22 20:00 Total Protein 8.3 g/dL (6.7-8.2) H 10/15/22 04:41 Albumin 3.1 g/dL (3.2-5.5) L 10/15/22 04:41 Globulin 5.2 g/dL (2.1-4.2) H 10/15/22 04:41 Albumin/Globulin Ratio 0.6 (1.0-2.2) L 10/15/22 04:41 Lipase 32 U/L (22-51) 10/14/22 18:10 Nasal Adenovirus (PCR) NOT DETECTED 10/14/22 20:51 Nasal B. parapertussis DNA (PCR) NOT DETECTED 10/14/22 20:51 Nasal Coronavir 229E PCR NOT DETECTED 10/14/22 20:51 Nasal Coronavir HKU1 PCR NOT DETECTED 10/14/22 20:51 Nasal Coronavir NL63 PCR NOT DETECTED 10/14/22 20:51 Nasal Coronavir OC43 PCR NOT DETECTED 10/14/22 20:51 Nasal Enterovir/Rhinovir PCR NOT DETECTED 10/14/22 20:51 Nasal Influenza B PCR NOT DETECTED 10/14/22 20:51 Nasal Influenza A PCR NOT DETECTED 10/14/22 20:51 Nasal Parainfluen 1 PCR NOT DETECTED 10/14/22 20:51 Nasal Parainfluen 2 PCR NOT DETECTED 10/14/22 20:51 Nasal Parainfluen 3 PCR NOT DETECTED 10/14/22 20:51 Nasal Parainfluen 4 PCR NOT DETECTED 10/14/22 20:51 Nasal RSV (PCR) NOT DETECTED 10/14/22 20:51 Nasal B.pertussis DNA PCR NOT DETECTED 10/14/22 20:51 Nasal C.pneumoniae (PCR) NOT DETECTED 10/14/22 20:51 Danial Human Metapneumo PCR NOT DETECTED 10/14/22 20:51 Nasal M.pneumoniae (PCR) NOT DETECTED 10/14/22 20:51 Nasal SARS-CoV-2 (PCR) NOT DETECTED 10/14/22 20:51 - Procedures Procedures: Procedures EXCISION OF SIGMOID COLON, ENDO (08/06/19) Sepsis Event Note (H) - Evaluation Current Stage of Sepsis: Ruled out
[2022-10-15] MEDS ORDERED: ONDANSETRON 4 MG/2 ML VIAL IVP PRN (13:43)
[2022-10-15] MEDS ORDERED: SODIUM CHLORIDE FLUSH 0.9% 10 ML SYRINGE IVP PRN (13:43)
[2022-10-15] MEDS ORDERED: ACETAMINOPHEN 325 MG TABLET PO PRN (13:43)
[2022-10-15] MEDS ORDERED: SODIUM CHLORIDE FLUSH 0.9% 10 ML SYRINGE IVP SCH (17:00)
--- NOTE | 2022-10-15 18:12 | PROVIDER PROGRESS NOTE ---
Hospitalist Cross-cover Note - Cross-Cover Note Cross-Cover Note: I reached out to [facility], transfer center and received the name of the covering Executive Director Of Marketing today: Dr. Lam. I then contacted Dr. Lam at [phone] and spoke to her. This doctor had seen the patient in Cardiology consultation with EP Dr. Elias, when he was at [facility] from 09/27/22 through 10/12/2022. Dr. Lam remembered him, said that Mexiletine was changed to Amiodarone at the recommendation of Dr. Elias. Dr. Elias had said there is nothing more that can be offered him except to put him on Amiodarone. I asked if the patient should be on an IV amiodarone drip or continue with this oral loading dose here, which seems to be dropping his blood pressure. Dr. Lam said that usually Amiodarone does not drop blood pressure too much, and it must be something else. We reviewed his medication list. He is on ARB, Entresto, torsemide and spironolactone which also could be dropping his blood pressure. I said I would just stagger these which Dr. Lam agreed was a good idea. Also, Dr Lam said the patient has had extensive Amio loading done there, he does not need to be on an Amiodarone drip. Plan: Will stagger his cardiac meds. Will see if that plus using TEDS stockings may help the orthostasis.
[2022-10-15] MEDS: FAMOTIDINE 20 MG TABLET PO SCH (20:30)
[2022-10-16 05:01] LABS: CALCIUM, IONIZED 1.04 mmol/L (1.15-1.33); VBG PH 7.424 (7.31-7.41)
[2022-10-16 05:05] LABS: BASOPHILS # (AUTO) 0.1 10^3/uL (0.0-0.1); BASOPHILS % (AUTO) 0.4 %; EOSINOPHILS # (AUTO) 0.1 10^3/uL (0.0-0.7); EOSINOPHILS % (AUTO) 0.9 %; HCT - HEMATOCRIT 27.7 % (42.0-52.0); LYMPHOCYTES # (AUTO) 0.5 10^3/uL (1.5-3.5); LYMPHOCYTES % (AUTO) 3.5 %; MEAN CORPUSCULAR HEMOGLOBIN 30.8 pg (27.0-31.0); MEAN CORPUSCULAR HGB CONC 32.5 g/dL (32.0-36.0); MEAN CORPUSCULAR VOLUME 94.9 fL (80.0-94.0); MEAN PLATELET VOLUME 10.7 fL (7.4-11.4); MONOCYTES # (AUTO) 1.4 10^3/uL (0.0-1.0); MONOCYTES % (AUTO) 10.4 %; NEUTROPHILS # (AUTO) 11.5 10^3/uL (1.5-6.6); NEUTROPHILS % (AUTO) 84.1 %; PLT - PLATELET COUNT 147 10^3/uL (130-450); RED BLOOD COUNT 2.92 10^6/uL (4.70-6.10); WHITE BLOOD COUNT 13.7 x10^3/uL (4.8-10.8)
[2022-10-16 05:09] LABS: CALCIUM 8.5 mg/dL (8.5-10.3); CREATININE 5.2 mg/dL (0.6-1.2); MAGNESIUM 2.1 mg/dL (1.7-2.8); POTASSIUM 4.7 mmol/L (3.5-5.0)
[2022-10-16] MEDS: INSULIN LISPRO 300 UNIT/3 ML PEN SUBQ SCH ×2 (07:29→12:09)
[2022-10-16] MEDS: CALCIUM CARBONATE CHEW 500 MG TABLET PO SCH ×2 (08:04→12:08)
[2022-10-16] MEDS: PREGABALIN 100 MG CAPSULE PO SCH (08:05)
[2022-10-16] MEDS: FAMOTIDINE 20 MG TABLET PO SCH (08:05)
[2022-10-16] MEDS: ASPIRIN EC 81 MG TABLET PO SCH (08:05)
[2022-10-16] MEDS: allopurinoL 100 MG TABLET PO SCH (08:05)
[2022-10-16] MEDS: SODIUM CHLORIDE FLUSH 0.9% 10 ML SYRINGE IVP SCH (08:06)
[2022-10-16] MEDS: INSULIN GLARGINE-YFGN 300 UNIT/3 ML PEN SUBQ SCH (08:10)
[2022-10-16] MEDS: OMEGA-3 ACID ETHYL ESTERS 1 GM CAPSULE PO SCH (08:23)
[2022-10-16] MEDS ORDERED: METOPROLOL SUCCINATE 25 MG TABLET PO SCH (09:00)
[2022-10-16] MEDS ORDERED: AMIODARONE 200 MG TABLET PO SCH (09:00)
--- NOTE | 2022-10-16 11:19 | Discharge Plan ---
"Discharge Plan for SNF / JOAN - Discharge Plan And Transition Orders Problem Reviewed?: Yes Disposition: 03 SNF DC/Xfer Condition: Fair Allergies and Adverse Reactions: Allergies Allergy/AdvReac Type Severity Reaction Status Date / Time morphine AdvReac Nausea Verified 07/30/19 14:17 Health Concerns: The patient was hospitalized to evaluate and treat syncope, hypotension and V. tach. Because he fell, CT of the head and spine were done and these were negative. A new prescription is now ordered for Midodrine to take Monday, Wednesdays and Fridays, his dialysis days. Plan of Treatment: Resume all his other usual medications, antibiotics, and dialysis schedule. Care Goals: Improvement in symptoms and stabilization are the goals. Assessment: The patient and understand and are agreeable with the plan. - SNF / JOAN Transition Orders Admit to (Facility): [facility] Under the care of (Name): Dr Diego Smith Discharge Diagnosis: 1. Recurrent syncope This appears to be happening from hypotension and from V. tach. 2. Ventricular Tachycardia Continue amiodarone 3. Hypotension Common for him following hemodialysis, which causes orthostatic syncope. He is now ordered to get Midodrine on dialysis days. 4. Ischemic cardiomyopathy 5. Junctional rhythm His backup pacer rate is set at 40 6. S/P Defibrillator 7. ESRD on hemodialysis Continue on Monday 8. Diabetic foot infection Continue on ceftazidime 3 times a week, during dialysis sessions 9. Diabetes mellitus on insulin Medicare Certification Statement: I certify that [facility] care is medically necessary on a continuing basis for any of the conditions for which she/he is receiving care during hospitalization. Notify PCP of admission and forward orders to primary provider for signature. Other Notification Orders: Call PCP immediately if patient develops dyspnea, chest pain/tightness or edema. House Bowel Program: Yes Additional Bowel Program Orders: If no BM after 2 days, nurse may give M.O.M. 30ml PO PRN and/or ducolax Supp 1 [place] and/or GUALBERTO 250mg P.O., and/or senna 1-2 tabs PO. On day 3 nurse may give repeat above order until residents constipation is resolved. Annual Influenza Vaccine (between Apr 21 and November 18): Yes Two-step PPD per [facility] [phone] or approved exception documents: Yes Treatments & Other Orders: Resume any previous PT and OT orders. Hemodialysis on Monday, Monday, Monday Medication Orders: PLEASE REFER TO THE DISCHARGE MEDICATION LIST. Insulin Orders?: Yes - Medications New Prescriptions: Midodrine [ProAmatine] 2.5 mg PO TID #36 tablet - Diet Type: Geriatric (Diabetic diet) Texture: Regular Liquids: Thin May have monthly special meal: Yes - Therapies | Activity Rehabilitation Potential: Maintain present ADL Functional Activity: Activity as Tolerated"
--- NOTE | 2022-10-16 11:50 | Discharge Plan ---
"Discharge Plan for SNF / JOAN - Discharge Plan And Transition Orders Problem Reviewed?: Yes Disposition: 03 SNF DC/Xfer Condition: Fair Allergies and Adverse Reactions: Allergies Allergy/AdvReac Type Severity Reaction Status Date / Time morphine AdvReac Nausea Verified 07/30/19 14:17 Health Concerns: The patient was hospitalized to evaluate and treat syncope, hypotension and V. tach. Because he fell, CT of the head and spine were done and these were negative. A new prescription is now ordered for Midodrine to take Monday, Wednesdays and Fridays, his dialysis days. Plan of Treatment: Resume all his other usual medications, antibiotics, and dialysis schedule. Care Goals: Improvement in symptoms and stabilization are the goals. Assessment: The patient and understand and are agreeable with the plan. - SNF / JOAN Transition Orders Medicare Certification Statement: I certify that [facility] home care is medically necessary on a continuing basis for any of the conditions for which she/he is receiving care during hospitalization. Notify PCP of admission and forward orders to primary provider for signature. Other Notification Orders: Call PCP immediately if patient develops dyspnea, chest pain/tightness or edema. Additional Bowel Program Orders: If no BM after 2 days, nurse may give M.O.M. 30ml PO PRN and/or ducolax Supp 1 MT and/or GUALBERTO 250mg P.O., and/or senna 1-2 tabs PO. On day 3 nurse may give r epeat above order until residents constipation is resolved. Medication Orders: PLEASE REFER TO THE DISCHARGE MEDICATION LIST. - Medications New Prescriptions: Midodrine [ProAmatine] 2.5 mg PO TID #36 tablet - Diet Type: Geriatric (Diabetic diet) Insulin Orders - SNF Basal | Correction | Custom Orders: Diagnosis: Diabetes Initiate hypo and hyperglycemia protocols for BG <70 and BG >375. May check BG PRN for signs/symptoms of dysglycemia. Frequency of BG checks: [AC/HS] Basal Insulin: [X] Lantus 100 units / ml inject subq as follows: 40 U sq daily Correction Insulin: - Select the type of insulin below [Choose: Humalog]100 units /ml insulin inject subq per orders indicate below [X] LOW DOSE [] MODERATE DOSE [] MODERATE/HIGH DOSE [] HIGH DOSE GB UNITS GB UNITS GB UNITS GB UNITS 61-140 0 UNITS 61-140 0 UNITS 61-140 0 UNITS 61-140 0 UNITS 141-175 1 UNITS 141-175 1 UNITS 141-175 2 UNITS 141-175 3 UNITS 176-225 2 UNITS 176-225 3 UNITS 176-225 4 UNITS 176-225 5 UNITS 226-275 3 UNITS 226-275 5 UNITS 226-275 6 UNITS 226-275 7 UNITS 276-325 5 UNITS 276-325 7 UNITS 276-325 8 UNITS 276-325 9 UNITS 326-375 6 UNITS 326-375 9 UNITS 326-375 10 UNITS 326-375 11 UNITS >375 CONTACT MD >375 CONTACT MD >375 CONTACT MD >375 CONTACT MD"
--- NOTE | 2022-10-16 11:55 | DISCHARGE SUMMARY ---
Discharge Summary Admit Date: 10/14/22 Discharge Date: 10/16/22 Discharging Provider: Dr Michelle Domingo Primary Care Provider: Dr Diego Smith Code Status: Attempt Resuscitation Condition at Discharge: Fair Discharge Disposition: SNF DC/Xfer - HPI History of Present Illness: From ER note: 67-year-old male with diabetes, comes from a fdc. Hx of end-stage renal disease, dialyzed Monday and Monday and was dialyzed today so would have gotten heparin this morning. He also has type 2 diabetes, coronary disease with CABG, CHF, AICD in place, ischemic cardiomyopathy, liver cell carcinoma, sleep apnea. He was on the toilet and had a dizzy spell and fell down hit the back of his head. There was no loss of consciousness and he has a mild headache. No other injuries. Initially brought in without any trauma designation, but I asked the nurse to upgrade him to a modified trauma given that he was anticoagulated this morning with heparin. He was just discharged from [facility] bout 2 days ago. His last year has been rough. He had some sort of liver tumor that was removed but not biopsied. It was cancerous though per the . The primary is not known. They "burned the heck out of it." He was on dialysis in June and subsequently needed it again. He was not getting dialysis for couple of months but now it is thought to be permanent. says that pretty much every time after dialysis, he gets hypotension for that evening and has had several syncopal episodes. He may be functionally anticoagulated as he had heparin in his dialysis circuit this morning fell and hit his head. He was transitioned to a modified trauma as soon as the above history was elucidated and a CT of the head and neck was normal. The ER was preparing to send him back to [facility] and the nurse had taken him out into the parking lot to get on the 's car. Once he was loaded in the 's car he became unresponsive. No pulse was noted and CPR was administered and then he became conscious again. He was brought back into the emergency department and he says he feels okay. No chest pain either prima rily nor from the CPR. No trouble breathing. states he has been having syncopal episodes after dialysis for the last couple of weeks. Computer read his EKG is Mobitz type II. I disagree as there is no irregularity or dropped beats to it. That said, he also has an AICD/pacemaker in place, a [employer] model which we will try to interrogate and repeat EKG. His [employer] pacemaker was interrogated. There were no arrhythmias, no VF/VT, no shocks delivered. He is being paced less than 1% of the time. A repeat EKG shows against a junctional rhythm, not quite slow enough to be paced. He continued to have low blood pressures here in the ED and was administered 800 mL of normal saline without much improvement. He remained asymptomatic though and feeling well. Given his syncopal episode, a troponin was done and this was elevated, but I think related to ESRD/dialysis and troponin was repeated and is flat. His WBC is elevated at 18.5. again states that he has been syncopal repeatedly after dialysis and usually remained hypotensive for the day. Given his leukocytosis I will order blood cultures and a lactate. He has no infectious symptoms. He had been getting IV antibiotics for chronic osteomyelitis of the left calcaneus but he thinks that is improving. It certainly does not look impressive on exam. There is maybe some mild skin discoloration but not redness or warmth. No tenderness. Discussed with him that given the persistent hypotension he should probably stay in the hospital and he was agreeable. That said, he did not want to be transferred to [facility]. I am hopeful that maybe with just 1 night of Observation, his blood pressure will normalize and he will not need to be here over the weekend (today is Mon, and we have no dialysis available at our [facility]), his next dialysis would be as an outpatient on Monday. - HOSPITAL COURSE Hospital Course: 1. Recurrent syncope This appears to be happening from hypotension and from V. tach (see #2). He had symptomatic orthostasis and "soft" BP here and needed more gentle saline iv hydration. He was started on Midodrine. He was discharged on new Midodrine to be taken TID with meals, only on Mon,Mon, Mon, his dialysis days. On day of disc harge back to his SNF, he was not orthostatic. 2. Ventricular Tachycardia Staff assist was called to his room for a Rapid Response. The patient had just been getting an orthostatic VS check and had gone from supine to sitting. He then had syncope, and was helped down to be supine in bed and put in Trandelenburg. His eyes were open but he was not focusing, not answering to his name. He was breathing on his own. The initial vital signs (in Trandelenburg) were BP 111/50, heart rate 70, O2 saturation 89% on room air. The patient was not in distress. In approximately 15 to 30 seconds he answered to his name, turned his head and followed, answered. He did state that he was dizzy. Blood pressure repeat in Trendelenburg position was 120/50. Fingerstick glucose check was 98. A repeat fingerstick glucose check was 122. The was at his bedside and described what happened and said this was similar to his prior episodes of syncope following dialysis. He knows to stay in bed when he feels this way. said nobody has tried Midodrine on him. Telemetry strips showed that the patient was in junctional rhythm, rate 45-70, with a very wide QRS complex. During that syncopal event there were 2 episodes of V. tach, multifocal, at a very rapid rate of approximately 270, one was a 5- beat run, another was a 9 beat run. There was also 14-beat run of slow V. tach at a rate of 70. This was VTach, fast enough to be called Ventricular flutter, it was self-limited therefore no defibrillation took place. After this, he was admitted from Observation to Inpatient status. He was not medically cleared to be discharged because of recurrent syncope. He was moved from [facility] telemetry bed to the ICU, for closer monitoring. Discharge summary records had just arrived from his [facility] Hospital stay from 09/27-10/12/22 and described an ischemic cardiomyopathy with EF of about 40% and that he has a single lead AICD, with backup pacing rate set at 40, the defibrillator had fired at least 3 times over the past month. (In our ER the previous day, the defibrillator was interrogated and there were no further defibrillations since the last interrogation done at [facility]). The patient was on Mexilitene while at [facility] initially, changed to oral loading dose of Amiodarone 400 mg twice daily with a slow decrease down over weeks, and during that hospital stay Cardiology stopped his Metoprolol succinate. However, on the discharge orders to [facility], the Hospitalist had continued the Metoprolol succinate. I then reached out to [facility], contacted the on-call Buyer Renter Dr. Lam and spoke to her. She was the Buyer Renter in consultation with EP Dr. Elias, when he was at [facility] from -10/12/22. Dr. Lam remembered him, said that Dr. Elias had said there is nothing more that can be offered him except to put him on Amiodarone. I asked if the patient should be on an IV amiodarone drip or continue with this oral loading dose here, which seemed to be dropping his blood pressure. Dr. Lam said that usually Amiodarone does not drop blood pressure too much, and it must be something else. We reviewed his medication list. He was getting the Metoprolol at [facility], which should have been stopped. Dr. Lam said the patient has had extensive Amio loading started at [facility], so he did not need to be on an Amiodarone drip. Meds were adjusted. His rhythm was stable from then, and he was able to be discharged back to his SNF on 10/16/22, to continue outpatient dialysis. 3. Hypotension Low BP is common for him following hemodialysis, which causes orthostatic syncope. He is now ordered to get Midodrine on dialysis days. We also staggered his cardiac meds and ordered TEDS stockings, on daily in a.m. off at bedtime. The other cause of his hypotension, which was documented (as in #2), is his non- sustained VTach, for which he is to continue on Amiodarone, on oral loading doses. 4. Ischemic cardiomyopathy As per Hx. Continue same meds and management, and staggering meds may help. 5. Junctional rhythm This was seen on telemetry. His backup pacer rate is set at 40. We did not see pacing, as his saxman ventricular rate was above 40 while here. 6. S/P Defibrillator He did not have any defib discharges while here. 7. ESRD on hemodialysis Continue dialysis on Monday, Monday, Monday, as an outpatient, and he is to u se the TID Midodrine on those dialysis days. 8. Diabetic foot infection Continue on ceftazidime 3 times a week, administered during dialysis sessions, as has been previously arranged. 9. Diabetes mellitus He is on insulin. We continued same meds and management. - ALLERGIES Allergies/Adverse Reactions: Allergies Allergy/AdvReac Type Severity Reaction Status Date / Time morphine AdvReac Nausea Verified 07/30/19 14:17 - MEDICATIONS Home Medications: Ambulatory Orders Medication Instructions Recorded Confirmed Aspirin [Aspirin EC] 81 mg PO DAILY 07/30/19 10/15/22 Pregabalin [Lyrica] 100 mg PO TID 07/30/19 10/15/22 Bisacodyl Supp [Dulcolax Supp] 10 mg KS PRN PRN 10/15/22 10/15/22 Calcium Acetate 3 cap ORAL TIDWM 10/15/22 10/15/22 Cholecalciferol [Vitamin D3] 50 mcg PO DAILY 10/15/22 10/15/22 Insulin Glargine [Lantus Solostar] 40 unit SQ DAILY 10/15/22 10/15/22 Insulin Lispro See Rx Instructions .ROUTE .COMPLEX 10/15/22 10/15/22 Mineral Oil [Mineral Oil Enema] 1 supp KS PRN PRN 10/15/22 10/15/22 Pravastatin [Pravachol] 10 mg PO QPM 10/15/22 10/15/22 Senna [Senokot] 2 tab PO PRN PRN 10/15/22 10/15/22 allopurinoL [Zyloprim] 100 mg PO DAILY 10/15/22 10/15/22 guaiFENesin [Guaifenesin ER] 600 mg PO Q12H PRN 10/15/22 10/15/22 polyethylene glycoL 3350 [Miralax] 17 g PO PRN PRN 10/15/22 10/15/22 Acetaminophen [Tylenol] 650 mg PO Q4HR PRN tab 10/16/22 Amiodarone HCl 400 mg PO BID #0 10/16/22 10/15/22 Midodrine [ProAmatine] 2.5 mg PO TID #36 tablet 10/16/22 - PHYSICAL EXAM AT DISCHARGE General Appearance: positive: No acute distress, Alert, Other (Obese male) Eyes Bilateral: positive: Normal inspection, No lid inflammation Neck: positive: Nml inspection Respiratory: positive: No respiratory distress, Breath sounds nml Cardiovascular: positive: Regular rate & rhythm, No murmur Abdomen: positive: Non-tender, Other (Obese with a pannus) Skin: positive: Warm, Dry Extremities: positive: Non-tender, No pedal edema Neurologic/Psychiatric: positive: Oriented x3, Motor nml - LABS Result Diagrams: 10/16/22 04:42 10/16/22 04:42 - SEPSIS Current Stage of Sepsis: Ruled out - FOLLOW UP Follow Up: See PCP and Cardiology, and attend hemodialysis Mon, Wed, Fri, as previously planned when discharged from [facility] on 10/12/22. - TIME SPENT Time Spent in Discharge (Minutes): 45
[2022-10-16 13:11] VITALS: BP 98/61
== END 2022-10-16 15:41 | DRG 312 ==
LOC: EDUNIT# → ED 15:38 → MS2 21:38 → OBSVTOIN 10-15 12:16 → ICU 10-15 12:55
PROVIDERS: ADMIT Internal Medicine; ATTEND Internal Medicine
DX: I95.9 Hypotension, unspecified (principal); I95.1 Orthostatic hypotension; W18.12XA Fall from or off toilet with subsequent striking against object, initial encounter; I49.02 Ventricular flutter; N18.6 End stage renal disease; M86.9 Osteomyelitis, unspecified; I47.20 Ventricular tachycardia, unspecified; I13.2 Hypertensive heart and chronic kidney disease with heart failure and with stage 5 chronic kidney disease, or end stage renal disease; C22.0 Liver cell carcinoma; M86.672 Other chronic osteomyelitis, left ankle and foot; I25.5 Ischemic cardiomyopathy; E11.22 Type 2 diabetes mellitus with diabetic chronic kidney disease; I50.9 Heart failure, unspecified; Z20.822 Contact with and (suspected) exposure to COVID-19; G47.30 Sleep apnea, unspecified; R55 Syncope and collapse; I25.10 Atherosclerotic heart disease of native coronary artery without angina pectoris; S09.90XA Unspecified injury of head, initial encounter; W18.11XA Fall from or off toilet without subsequent striking against object, initial encounter; E78.00 Pure hypercholesterolemia, unspecified; C78.7 Secondary malignant neoplasm of liver and intrahepatic bile duct; E11.42 Type 2 diabetes mellitus with diabetic polyneuropathy; Z95.810 Presence of automatic (implantable) cardiac defibrillator; I45.10 Unspecified right bundle-branch block; D72.829 Elevated white blood cell count, unspecified; E11.69 Type 2 diabetes mellitus with other specified complication; Z79.01 Long term (current) use of anticoagulants; I25.2 Old myocardial infarction; Z99.2 Dependence on renal dialysis; Z79.4 Long term (current) use of insulin; Y92.121 Bathroom in nursing home as the place of occurrence of the external cause; Z79.84 Long term (current) use of oral hypoglycemic drugs; Z95.1 Presence of aortocoronary bypass graft; Z95.5 Presence of coronary angioplasty implant and graft
CPT/HCPCS: 36415; 70450; 71045; 72125; 80048; 80053; 82330; 83605; 83690; 83735; 84100; 84484; 85025; 87040; 87150; 87633; 93005; 99285; A9270; G0378; J1815

== ENCOUNTER 2022-10-16 15:59 | Outpatient (CLI) | payer MEDICARE, OTHER | END 2022-10-16 16:00 | LOC: EMS 15:59 | PROVIDERS: ATTEND Emergency Medicine | DX: I95.1 Orthostatic hypotension (principal); N18.6 End stage renal disease; I42.9 Cardiomyopathy, unspecified; Z74.01 Bed confinement status; Z99.2 Dependence on renal dialysis; Z99.81 Dependence on supplemental oxygen | CPT/HCPCS: A0425; A0428 ==

== ENCOUNTER 2022-10-18 14:41 | Outpatient (CLI) | payer MEDICARE, OTHER ==
--- NOTE | 2022-10-18 15:51 | XRAY Report ---
PROCEDURE: Chest 2 View X-Ray INDICATIONS: TUBERCULOSIS TECHNIQUE: 2 views of the chest were acquired. COMPARISON: None. FINDINGS: Surgical changes and devices: Intravenous leads projected over the appropriate positions. Left IJ d ialysis catheter tips project over the right atrium . Lungs and pleura: Mildly increased pulmonary markings. No consolidation. Mediastinum: Cardiomegaly. Bones and chest wall: No suspicious bony abnormalities. Soft tissues appear unremarkable. IMPRESSION: 1.Mild interstitial edema. 2.No evidence of active tuberculosis. Reviewed by: Michael Lozano on 10/18/2022 3:50 PM PST Approved by: Michael Lozano on 10/18/2022 3:50 PM PST Station ID: [id number]
== END 2022-10-18 14:42 | disposition home or self-care (01) ==
LOC: DI 14:41
DX: R76.11 Nonspecific reaction to tuberculin skin test without active tuberculosis (principal)

== ENCOUNTER 2022-10-27 08:00 | Outpatient (CLI) | payer MEDICARE, OTHER ==
[2022-10-27 09:24] LABS: HCT - HEMATOCRIT 29.7 % (42.0-52.0)
[2022-10-27 09:40] LABS: INR 1.3 (0.8-1.2); PT - PROTHROMBIN TIME 14.5 secs (9.9-12.6)
[2022-10-27] MEDS ORDERED: LIDOCAINE-MPF 1% 5 ML VIAL ONE (09:57)
--- NOTE | 2022-10-31 08:43 | Ultrasound Report ---
PROCEDURE: Abdomen Limited INDICATIONS: ASCITES TECHNIQUE: Real-time focused scanning was performed of the abdomen, with image documentation. COMPARISON: None FINDINGS: Small amounts of fluid were identified, felt to be too small for paracentesis. IMPRESSION: Limited fluid for paracentesis. Patient to return in one week. Reviewed by: Ciera Lubin MD on 10/31/2022 8:41 AM PDT Approved by: Ciera Lubin MD on 10/31/2022 8:41 AM PDT Station ID: [id number]
== END 2022-10-27 23:59 | disposition home or self-care (01) ==
LOC: LAB 08:00
PROVIDERS: ATTEND Internal Medicine Nephrology
DX: R18.8 Other ascites (principal)
CPT/HCPCS: 36415; 85014; 85049; 85610

== ENCOUNTER 2022-11-03 09:38 | Outpatient (CLI) | payer MEDICARE, OTHER | END 2022-11-03 23:59 | disposition critical access hospital (66) | LOC: EMS 09:38 | DX: I46.9 Cardiac arrest, cause unspecified (principal) | CPT/HCPCS: A0425; A0427 ==

== ENCOUNTER 2022-11-03 09:40 | Emergency (ER) | payer MEDICARE, OTHER ==
[~2022-11-03 09:40] MED LIST: EPINEPHrine ABBOJECT 1 MG/10 ML SYRINGE IVP STA
[2022-11-03] MEDS ORDERED: SODIUM BICARBONATE ABBOJECT 50 MEQ/50 ML SYRINGE IVP ONE (09:41)
[2022-11-03] MEDS ORDERED: AMIODARONE 150 MG/3 ML VIAL IV ONE (09:41)
[2022-11-03] MEDS ORDERED: EPINEPHrine ABBOJECT 1 MG/10 ML SYRINGE IVP ONE (09:41)
[2022-11-03] MEDS ORDERED: EPINEPHrine ABBOJECT 1 MG/10 ML SYRINGE IVP STA ×2 (09:44→09:48)
[2022-11-03] MEDS ORDERED: SODIUM BICARBONATE ABBOJECT 50 MEQ/50 ML SYRINGE IVP STA (09:45)
[2022-11-03] MEDS ORDERED: AMIODARONE 150 MG/3 ML VIAL IVP STA (09:47)
--- OUTSIDE RECORDS SUMMARY | 2022-11-03 09:52 | EXTERNAL MEDICAL SUMMARY RPT | Continuity of Care Document ---
:1955 Author Organization [facility] Address [address] [place] [address] Phone Care Team Providers Name Role Phone John Fair Unavailable Unavailable Allergies and Intolerances date description facility type (no date) No Known Drug Allergies Formerly [facility] (unkn own) Encounters No information. Functional Status No information. Immunizations No information. Medications No information. Problems date description facility 2022-08-18 15:20 Type 2 diabetes mellitus with foot [facility] 2022-08-23 11:38 Type 2 diabetes mellitus with foot [facility] 2022-08-23 11:38 Local infection of the skin and subcuta [facility] tissue, unspeci 2022-08-29 13:52 Type 2 diabetes mellitus with foot [facility] 2022-09-03 00:00 Implantable cardioverter-defibrillator (ICD) [facility] discharge Procedures date description facility 2022-09-03 00:00 Anaerobic Culture [facility] 2022-08-18 00:00 Radionuclide bone scan, three phase mayela dy [facility] 2022-09-03 00:00 Gram Stain [facility] 2022-09-03 00:00 X-ray of chest, single view [facility] Results/Labs test date author facility value unit interpret ation Result panel 1 (unknown) (no date) (unknown) [facility] (no value[facility] (units (unk nown[facility] Hospital unknown) Result panel 2 (unknown) (no date) (unknown) [facility] (no value) (units (unk nown) Hospital unknown) Result panel 3 (unknown) (no date) (unknown) [facility] (no value) (units ([facility] nown) Hospital unknown) Result panel 4 (unknown) (no date) (unknown) [facility] (no value) (units (unk nown) Hospital unknown) Result panel 5 (unknown) (no date) (unknown) [facility] (no value) (units (unk nown) Hospital unknown) [...] Hospital unknown) Result panel 79 (unknown) (no (unknown) (unknown) (no value) (units (unk nown) date) unknown) (unknown) (no (unknown) (unknown) [id number] (units (unkno wn) date) unknown) (unknown) (no (unknown) (unknown) 08/18/22 (units (unkno wn) date) unknown) (unknown) (no (unknown) (unknown) [address] [place] [id number] (units (unknown) date) unknown) (unknown) (no (unknown) (unknown) Accession (units (unkn own) date) Number: unknown) [id number] (unknown) (no (unknown) (unknown) Age/Sex: 67 / M (units (unknown) date) Date of Service: unknown) (unknown) (no (unknown) (unknown) CAMMY Lambert (units ( unknown) date) [id number] unknown) (unknown) (no (unknown) (unknown) Approved by: (units (u nknown) date) Adam Garcia M.D. unknown) on 08/19/2022 at 9:42 (unknown) (no (unknown) (unknown) COMPARISON: (units (un known) date) None. unknown) (unknown) (no (unknown) (unknown) : 1955 (units (unknown) date) Acct:[id number] unknown) (unknown) (no (unknown) (unknown) Dictated by: [...] on L heel (unknown) (no (unknown) (unknown) [facility] (units (unknown) date) unknown) (unknown) (no (unknown) [...] (units (unkno wn) date) unknown) Result panel 80 (unknown) (no date) (unknown) (unknown) (no value) (units (un known) unknown) (unknown) (no date) (unknown) (unknown) 1 (units (unkn own) unknown) (unknown) (no date) (unknown) (unknown) No WBC seen (units (u nknown) unknown) (unknown) (no date) (unknown) (unknown) Occasional (units (un known) (0-1) unknown) Result panel 81 (unknown) (no (unknown) (unknown) (no value) (units [...] (unkno wn) date) performed unknown) Result panel 82 (unknown) (no (unknown) [...] performed (units (unknown) date) unknown) Result panel 83 (unknown) (no (unknown) [...] those stated above (unknown) (no (unknown) (unknown) [id number] (units (unkno wn) date) unknown) (unknown) (no [...] (unknown) (unknown) : 1955 (units (unknown) date) Acct:[id number] unknown) (unknown) (no (unknown) (unknown) Date of [...] Present Illness unknown) (unknown) (no (unknown) (unknown) Former[facility] (units (unknown) date) [address] unknown) [place] [address] (unknown) (no (unknown) (unknown) MUSCULOSKELETAL (units (unknown) [...] nown) date) unknown) (unknown) (no (unknown) (unknown) [facility] (units ( unknown) date) [facility]. He unknown) denies headache or blurred vision. He denies chest (unknown) (no (unknown) (unknown) Stated (units (unkno wn) date) Complaint: sent unknown) by stenographic court reporter (unknown) (no (unknown) (unknown) Time Seen by (units (u nknown) date) Provider: unknown) 09/03/22 09:48 (unknown) (no (unknown) (unknown) but states that (units (unknown) date) his AICD was unknown) calibrated about 1 week ago, his stenographic court reporter is at (unknown) (no (unknown) (unknown) constipation, [...] cardiology office for evaluation an Result panel 85 (unknown) (no (unknown) (unknown) (no value) (units (unk nown) date) unknown) (unknown) (no (unknown) (unknown) 09/03/22 09:55 (units (unknown) date) unknown) (unknown) (no (unknown) (unknown) 12 point review (units (unknown) date) of systems is unknown) negative except for those stated above (unknown) (no (unknown) (unknown) [id number] (units (unkno wn) date) unknown) (unknown) (no [...] (unknown) (unknown) : 1955 (units (unknown) date) Acct:[id number] unknown) (unknown) (no (unknown) (unknown) Date of [...] (unknown) ER Physician: (units ( unknown) date) Venus,Norris unknown) D.O. (unknown) (no (unknown) (unknown) EXTREMITIES: [...] Present Illness unknown) (unknown) (no (unknown) (unknown) Former[facility] (units (unknown) date) [address] unknown) [place] [address] (unknown) (no (unknown) (unknown) MUSCULOSKELETAL (units (unknown) [...] nown) date) unknown) (unknown) (no (unknown) (unknown) [facility] (units ( unknown) date) [facility]. He unknown) denies headache or blurred vision. He denies chest (unknown) (no (unknown) (unknown) Stated (units (unkno wn) date) Complaint: sent unknown) by stenographic court reporter (unknown) (no (unknown) (unknown) Time Seen by (units (u nknown) date) Provider: unknown) 09/03/22 09:48 (unknown) (no (unknown) (unknown) Troponin + CK (units ( unknown) date) Cardiac Panel unknown) Stat (unknown) (no (unknown) (unknown) but states that (units (unknown) date) his AICD was unknown) calibrated about 1 week ago, his stenographic court reporter is at (unknown) (no (unknown) (unknown) constipation, [...] cardiology office for evaluation an Result panel 86 (unknown) (no date) (unknown) (unknown) 1.1 % [...] (unknown) 92.2 fl (unkn own) Result panel 87 (unknown) (no date) (unknown) (unknown) 1.2 (units [...] (unknown) 8.8 mg/dl (unkn own) Result panel 88 (unknown) (no date) (unknown) (unknown) 0.029 ng/ml [...] (unknown) 8.8 mg/dl (unkn own) Result panel 89 (unknown) (no date) (unknown) (unknown) 0.029 ng/ml [...] (unknown) 8.8 mg/dl (unkn own) Result panel 90 (unknown) (no (unknown) (unknown) [...] those stated above (unknown) (no (unknown) (unknown) [id number] (units (unkno wn) date) unknown) (unknown) (no [...] (unknown) (unknown) Blood Pressure (units (unknown) date) 122 unknown) (unknown) (no (unknown) (unknown) CARDIOVASCULAR: (units [...] (unknown) (unknown) : 1955 (units (unknown) date) Acct:[id number] unknown) (unknown) (no (unknown) (unknown) Date of [...] date) Signs: unknown) (unknown) (no (unknown) (unknown) [facility] (units (unknown) date) [address] unknown) [place] [address] (unknown) (no (unknown) (unknown) Lab Data (units (unkno wn) date) unknown) (unknown) (no (unknown) (unknown) Lab Results (units (un known) date) unknown) (unknown) (no (unknown) (unknown) Labs: (units (unkno wn) date) unknown) (unknown) (no (unknown) (unknown) Lymph # (Auto) (units (unknown) date) 700 L unknown) ([id number]) /uL (unknown) (no (unknown) (unknown) Lymph % [...] Care unknown) Provider] (unknown) (no (unknown) (unknown) [place] # (Auto) (units ( unknown) date) 700 (0-900) /uL unknown) (unknown) (no (unknown) (unknown) [place] % (Auto) (units ( unknown) date) 10.1 [...] # (Auto) (units ( unknown) date) 5200 ([id number]) unknown) /uL (unknown) (no (unknown) (unknown) Neut [...] nown) date) unknown) (unknown) (no (unknown) (unknown) [facility] (units ( unknown) date) [facility]. He unknown) denies headache or blurred vision. [...] (unkno wn) date) Complaint: sent unknown) by stenographic court reporter (unknown) (no (unknown) (unknown) Temperature (units (un [...] unknown) calibrated about 1 week ago, his stenographic court reporter is at (unknown) (no (unknown) (unknown) constipation, [...] cardiology office for evaluation an Result panel 91 (unknown) (no (unknown) (unknown) [...] those stated above (unknown) (no (unknown) (unknown) [id number] (units (unkno wn) date) unknown) (unknown) (no [...] (unknown) (unknown) : 1955 (units (unknown) date) Acct:[id number] unknown) (unknown) (no (unknown) (unknown) Data collected [...] Cardioverter Defibrillator Implantation (unknown) (no (unknown) (unknown) [facility] (units (unknown) date) [address] unknown) [place] [address] (unknown) (no (unknown) (unknown) Lab Data (units (unkno wn) date) unknown) (unknown) (no (unknown) (unknown) Lab Results (units (un known) date) unknown) (unknown) (no (unknown) (unknown) Lab Test results (units (unknown) date) independently unknown) reviewed as above. Pertinent findings: (unknown) (no (unknown) (unknown) Labs: (units (unkno wn) date) unknown) (unknown) (no (unknown) (unknown) Lymph # (Auto) (units (unknown) date) 700 L ([id number]) unknown) /uL (unknown) (no (unknown) (unknown) Lymph [...] in our EMR (unknown) (no (unknown) (unknown) [place] # (Auto) 700 (units (unknown) date) (0-900) /uL unknown) (unknown) (no (unknown) (unknown) [place] % (Auto) (units ( unknown) date) 10.1 [...] # (Auto) (units ( unknown) date) 5200 ([id number]) unknown) /uL (unknown) (no (unknown) (unknown) Neut [...] nown) date) unknown) (unknown) (no (unknown) (unknown) [facility] (units ( unknown) date) [facility]. He unknown) denies headache or blurred vision. [...] Complaint: (units (unknown) date) sent by unknown) stenographic court reporter (unknown) (no (unknown) (unknown) Temperature 98.7 (units [...] unknown) calibrated about 1 week ago, his stenographic court reporter is at (unknown) (no (unknown) (unknown) close [...] on (units (unknown) date) call cardio unknown) ([place]). After careful review of patient's (unknown) (no (unknown) (unknown) discussed with (units (unknown) date) sales account representative unknown) from [employer], it has been [...] History date description facility 2022-09-03 00:00 Ex-smoker ([facility] Vital Signs date measurement value units 2022-09-03 [...]
[2022-11-03] MEDS ORDERED: AMIODARONE 360 MG/200 ML 200 ML IV ONE ×3 (09:57→16:05)
[2022-11-03] MEDS ORDERED: AMIODARONE 150 MG/100 ML 100 ML IV ONE (09:59)
[2022-11-03] MEDS ORDERED: CALCIUM CHLORIDE ABBOJECT 1000MG/10 ML SYRINGE IVP STA (10:08)
[2022-11-03 10:09] LABS: BASOPHILS % (AUTO) 0.7 %; EOSINOPHILS % (AUTO) 2.7 %; HCT - HEMATOCRIT 33.7 % (42.0-52.0); HGB - HEMOGLOBIN 10.4 g/dL (14.0-18.0); LYMPHOCYTES % (AUTO) 25.1 %; MEAN CORPUSCULAR HEMOGLOBIN 30.8 pg (27.0-31.0); MEAN CORPUSCULAR HGB CONC 30.9 g/dL (32.0-36.0); MEAN CORPUSCULAR VOLUME 99.7 fL (80.0-94.0); MEAN PLATELET VOLUME 10.9 fL (7.4-11.4); MONOCYTES % (AUTO) 11.3 %; NEUTROPHILS % (AUTO) 54.7 %; PLT - PLATELET COUNT 142 10^3/uL (130-450); RED BLOOD COUNT 3.38 10^6/uL (4.70-6.10); RED CELL DISTRIBUTION WIDTH 16.9 % (12.0-15.0); WHITE BLOOD COUNT 10.8 x10^3/uL (4.8-10.8)
[2022-11-03 10:21] LABS: ALBUMIN 2.6 g/dL (3.2-5.5); ALBUMIN/GLOBULIN RATIO 0.5 (1.0-2.2); BILIRUBIN,TOTAL 0.7 mg/dL (0.2-1.0); CALCIUM 8.5 mg/dL (8.5-10.3); CREATININE 3.7 mg/dL (0.6-1.2); POTASSIUM 3.9 mmol/L (3.5-5.0); TOTAL PROTEIN 7.8 g/dL (6.7-8.2)
[2022-11-03 10:34] LABS: ABNORMAL LYMPHS % (MANUAL) 0 %
--- NOTE | 2022-11-03 10:35 | XRAY Report ---
PROCEDURE: Chest for Line Placement INDICATIONS: POST CPR ETT TUBE PLACEMENT TECHNIQUE: One view of the chest was acquired. COMPARISON: 10/18/2022 FINDINGS: Surgical changes and devices: ET tube terminates in the mid trachea. Left chest wall pulse. Her with defibrillator leads. Left central line terminates at the cavoatrial junction. Percutaneous pacing pa ds. Lungs and pleura: Low lung volumes and mild diffuse lung disease. Mediastinum: Heart size is mildly enlarged. Bones and chest wall: No suspicious bony lesions. Overlying soft tissues appear unremarkable. IMPRESSION: ET tube terminates in the mid trachea. Low lung volumes and mild diffuse lung disease. Consider futur e imaging surveillance to assess for resolution. Reviewed by: Adam Garcia MD on 11/03/2022 10:33 AM PDT Approved by: Adam Garcia MD on 11/03/2022 10:33 AM PDT Station ID: [id number]
[2022-11-03 10:38] LABS: BAND NEUTROPHILS % (MANUAL) 9 %; EOSINOPHILS # (MANUAL) 0.3 10^3/uL (0-0.7); LYMPHOCYTES # (MANUAL) 2.8 10^3/uL (1.5-3.5); LYMPHOCYTES % (MANUAL) 12 %; MONOCYTES # (MANUAL) 1.2 10^3/uL (0.0-1.0); MYELOCYTES % (MANUAL) 5 %; NEUTROPHILS # (MANUAL) 5.9 10^3/uL (1.5-6.6); NUCLEATED RBC (MANUAL) 2 %; REACTIVE LYMPHS % (MANUAL) 14 %
[2022-11-03 10:39] LABS: DIFFERENTIAL COMMENT MANUAL DIFFERENTIAL
--- NOTE | 2022-11-03 10:53 | ED Physician Documentation ---
PD HPI CPR - Stated complaint Stated Complaint: ROSC - Chief complaint Chief Complaint: Critical Care - History obtained from History obtained from: EMS - Additional information Additional information: The patient is brought to the emergency department by EMS for chief complaint of witnessed arrest. CPR has been in progress on and off since the arrest at 0902. The patient has a history of end-stage renal disease on hemodialysis and also, a history of ischemic cardiomyopathy, CABG, and defibrillator placement. He is also a type II diabetic and has hypertension. The medics report that the patie nt just had dialysis yesterday. He was at his assisted living facility when he was noted to arrest and collapse. Staff immediately started CPR on him and medics arrived about 8 minutes later and continued CPR after finding the patient to be in asystole. After some rounds of CPR and epinephrine, patient was noted to go into V. tach at which time his defibrillator delivered a succession of shocks. The medics state that at some point in the midst of the resuscitation, they did get return of circulation for proximately 5 minutes, but then the patient arrested again and CPR was initiated and has continued until the time of their arrival here. The patient upon return of circulation and did not awaken or offer any information. The patient was intubated in route. PD PAST MEDICAL HISTORY - Past Medical History Cardiovascular: Hypertension, High cholesterol, Coronary artery disease, PA, Arrhythmia Neuro: Peripheral neuropathy Endocrine/Autoimmune: Type 2 diabetes : None Psych: None Musculoskeletal: None - Past Surgical History Past Surgical History: Yes General: Cholecystectomy Ortho: Rotator cuff repair Cardiovascular: CABG, Coronary stent, AICD - Present Medications Home Medications: Ambulatory Orders Medication Instructions Recorded Confirmed Aspirin [Aspirin EC] 81 mg PO DAILY 07/30/19 10/15/22 Pregabalin [Lyrica] 100 mg PO TID 07/30/19 10/15/22 Bisacodyl Supp [Dulcolax Supp] 10 mg MS PRN PRN 10/15/22 10/15/22 Calcium Acetate 3 cap ORAL TIDWM 10/15/22 10/15/22 Cholecalciferol [Vitamin D3] 50 mcg PO DAILY 10/15/22 10/15/22 Insulin Glargine [Lantus Solostar] 40 unit SQ DAILY 10/15/22 10/15/22 Insulin Lispro See Rx Instructions .ROUTE .COMPLEX 10/15/22 10/15/22 Mineral Oil [Mineral Oil Enema] 1 supp MS PRN PRN 10/15/22 10/15/22 Pravastatin [Pravachol] 10 mg PO QPM 10/15/22 10/15/22 Senna [Senokot] 2 tab PO PRN PRN 10/15/22 10/15/22 allopurinoL [Zyloprim] 100 mg PO DAILY 10/15/22 10/15/22 guaiFENesin [Guaifenesin ER] 600 mg PO Q12H PRN 10/15/22 10/15/22 polyethylene glycoL 3350 [Miralax] 17 g PO PRN PRN 10/15/22 10/15/22 Acetaminophen [Tylenol] 650 mg PO Q4HR PRN tab 10/16/22 Amiodarone HCl 400 mg PO BID #0 10/16/22 10/15/22 Midodrine [ProAmatine] 2.5 mg PO TID #36 tablet 10/16/22 - Allergies Allergies/Adverse Reactions: Allergies Allergy/AdvReac Type Severity Reaction Status Date / Time morphine AdvReac Nausea Verified 11/03/22 10:29 - Social History Does the pt smoke?: No Smoking Status: Former smoker Does the pt drink ETOH?: No Does the pt have substance abuse?: No - Immunizations Immunizations are current?: Yes - POLST Patient has POLST: Yes PD ED PE NORMAL - Vitals Vital signs reviewed: Yes - General General: Other (Unconscious patient, intubated, with bloody residue in ET tube and coming from nose. No spontaneous respiratory effort.) - HEENT HEENT: Atraumatic, Moist mucous membranes, Other (No pupillary reaction. Pupils are fixed at about 3 mm.) - Cardiac Cardiac: Other (No cardiac sounds. No pulses.) - Respiratory Respiratory: Other (Bilateral rales.) - Abdomen Abdomen: Soft, Other (Obese abdomen, distended) - Derm Derm: Other (Cool and dry) - Extremities Extremities: No deformity, Other (1+ pitting edema left greater than right) - Neuro Neuro: Other (No signs of neurologic activity at this time) Results - Vitals Vitals: Vital Signs - 24 hr 11/03/22 11/03/22 11/03/22 10:29 10:35 10:45 Temperature 35.5 C L Heart Rate 55 L 72 68 Respiratory 15 19 Rate Blood Pressure 97/54 L 86/62 L 84/58 L O2 Saturation 92 97 99 If not protocol 100 100 100 : Oxygen Flow, liters/minute 11/03/22 11/03/22 11/03/22 11:00 11:15 11:20 Temperature Heart Rate 73 71 Respiratory 12 15 Rate Blood Pressure 83/64 L 91/58 L 107/65 O2 Saturation 99 100 If not protocol 100 100 : Oxygen Flow, liters/minute 11/03/22 11/03/22 11/03/22 11:45 12:00 12:15 Temperature 35.3 C L 35.2 C L Heart Rate 72 72 72 Respiratory 20 20 20 Rate Blood Pressure 107/65 114/66 113/67 O2 Saturation 100 100 100 If not protocol 100 100 100 : Oxygen Flow, liters/minute 11/03/22 11/03/22 11/03/22 12:48 13:14 14:50 Temperature Heart Rate 71 68 76 Respiratory 20 Rate Blood Pressure 115/68 O2 Saturation 100 If not protocol : Oxygen Flow, liters/minute 11/03/22 11/03/22 11/03/22 15:12 15:37 15:52 Temperature Heart Rate 71 71 71 Respiratory 20 20 20 Rate Blood Pressure 128/78 134/79 H 128/73 O2 Saturation 99 100 100 If not protocol : Oxygen Flow, liters/minute 11/03/22 11/03/22 11/03/22 16:14 16:15 16:35 Temperature Heart Rate 85 85 72 Respiratory 20 20 Rate Blood Pressure 128/70 112/73 O2 Saturation 100 100 If not protocol : Oxygen Flow, liters/minute 11/03/22 11/03/22 16:49 18:04 Temperature Heart Rate 73 73 Respiratory 20 Rate Blood Pressure 118/77 O2 Saturation 100 If not protocol : Oxygen Flow, liters/minute Oxygen O2 Source Mechanical ventilator - Labs Labs: Laboratory Tests 11/03/22 11/03/22 11/03/22 09:59 09:59 09:59 WBC 10.8 RBC 3.38 L Hgb 10.4 L Hct 33.7 L MCV 99.7 H MCH 30.8 MCHC 30.9 L RDW 16.9 H Plt Count 142 MPV 10.9 Neut # (Auto) ENDBANDER Lymph # (Auto) ENDBANDER [place] # (Auto) ENDBANDER Eos # (Auto) ENDBANDER Baso # (Auto) ENDBANDER Absolute Nucleated RBC ENDBANDER Total Counted 100 Band Neuts % (Manual) 9 Reactive Lymphs % (Man) 14 Abnorm Lymph % (Manual) 0 Myelocytes % 5 H Nucleated RBC % ENDBANDER Neutrophils # (Manual) 5.9 Lymphocytes # (Manual) 2.8 Monocytes # (Manual) 1.2 H Eosinophils # (Manual) 0.3 Basophils # (Manual) 0.0 Nucleated RBCs 2 Differential Comment MANUAL DIFFERENTIAL Bld Gas Analysis Time Sample Site ABG pH ABG pCO2 ABG pO2 ABG HCO3 ABG Total CO2 ABG O2 Saturation ABG Base Excess Floyd Test Respiration Rate O2 Delivery Device Vent Mode FiO2 Tidal Volume PEEP Sodium 134 L Potassium 3.9 Chloride 96 L Carbon Dioxide 24 Anion Gap 14.0 H BUN 54 H Creatinine 3.7 H Estimated GFR (MDRD) 16 L Glucose 126 H Calcium 8.5 Total Bilirubin 0.7 AST 52 H ALT 29 Alkaline Phosphatase 227 H Troponin I High Sens 102.0 H* B-Natriuretic Peptide Total Protein 7.8 Albumin 2.6 L Globulin 5.2 H Albumin/Globulin Ratio 0.5 L Lipase 38 Urine Color Urine Clarity Urine pH Ur Specific [place] Urine Protein Urine Glucose (UA) Urine Ketones Urine Occult Blood Urine Nitrite Urine Bilirubin Urine Urobilinogen Ur Leukocyte Esterase Urine RBC Urine WBC Ur Epithelial Cells Ur Squamous Epith Cells Urine Bacteria Urine Mucus Ur Microscopic Review Urine Culture Comments Nasal Adenovirus (PCR) Nasal B. parapertussis DNA (PCR) Nasal Coronavir 229E PCR Nasal Coronavir HKU1 PCR Nasal Coronavir NL63 PCR Nasal Coronavir OC43 PCR Nasal Enterovir/Rhinovir PCR Nasal Influenza B PCR Nasal Influenza A PCR Nasal Parainfluen 1 PCR Nasal Parainfluen 2 PCR Nasal Parainfluen 3 PCR Nasal Parainfluen 4 PCR Nasal RSV (PCR) Nasal B.pertussis DNA PCR Nasal C.pneumoniae (PCR) Danial Human Metapneumo PCR Nasal M.pneumoniae (PCR) Nasal SARS-CoV-2 (PCR) Urine Opiates Screen Ur Oxycodone Screen Urine Methadone Screen Ur Propoxyphene Screen Ur Barbiturates Screen Ur Tricyclics Screen Ur Phencyclidine Scrn Ur Amphetamine Screen U Methamphetamines Scrn U Benzodiazepines Scrn Urine Cocaine Screen U Cannabinoids Screen 11/03/22 11/03/22 11/03/22 11:00 11:01 12:50 WBC RBC Hgb Hct MCV MCH MCHC RDW Plt Count MPV Neut # (Auto) Lymph # (Auto) [place] # (Auto) Eos # (Auto) Baso # (Auto) Absolute Nucleated RBC Total Counted Band Neuts % (Manual) Reactive Lymphs % (Man) Abnorm Lymph % (Manual) Myelocytes % Nucleated RBC % Neutrophils # (Manual) Lymphocytes # (Manual) Monocytes # (Manual) Eosinophils # (Manual) Basophils # (Manual) Nucleated RBCs Differential Comment Bld Gas Analysis Time 1100 1257 Sample Site RIGHT RADIAL RIGHT RADIAL ABG pH 7.25 L 7.36 ABG pCO2 56 H 42 ABG pO2 111 H 113 H ABG HCO3 23.8 23.0 ABG Total CO2 25.5 24.3 ABG O2 Saturation 98 98 ABG Base Excess -3.9 L -2.4 L Floyd Test POSITIVE POSITIVE Respiration Rate 23 23 O2 Delivery Device VENTILATOR VENTILATOR Vent Mode ASSIST/CONTROL ASSIST/CONTROL FiO2 100.00 100.00 Tidal Volume 550 550 PEEP 5 5 Sodium Potassium Chloride Carbon Dioxide Anion Gap BUN Creatinine Estimated GFR (MDRD) Glucose Calcium Total Bilirubin AST ALT Alkaline Phosphatase Troponin I High Sens B-Natriuretic Peptide Total Protein Albumin Globulin Albumin/Globulin Ratio Lipase Urine Color DARK YELLOW Urine Clarity HAZY Urine pH 5.0 Ur Specific [place] >=1.030 H Urine Protein 100 H Urine Glucose (UA) NEGATIVE Urine Ketones TRACE Urine Occult Blood TRACE-INTA Urine Nitrite POSITIVE H Urine Bilirubin SMALL H Urine Urobilinogen 1 (NORMAL) Ur Leukocyte Esterase TRACE H Urine RBC 0-5 Urine WBC >25 H Ur Epithelial Cells FEW Transitional Ur Squamous Epith Cells NONE SEEN Urine Bacteria Few Urine Mucus Few Strands Ur Microscopic Review INDICATED Urine Culture Comments INDICATED Nasal Adenovirus (PCR) Nasal B. parapertussis DNA (PCR) Nasal Coronavir 229E PCR Nasal Coronavir HKU1 PCR Nasal Coronavir NL63 PCR Nasal Coronavir OC43 PCR Nasal Enterovir/Rhinovir PCR Nasal Influenza B PCR Nasal Influenza A PCR Nasal Parainfluen 1 PCR Nasal Parainfluen 2 PCR Nasal Parainfluen 3 PCR Nasal Parainfluen 4 PCR Nasal RSV (PCR) Nasal B.pertussis DNA PCR Nasal C.pneumoniae (PCR) Danial Human Metapneumo PCR Nasal M.pneumoniae (PCR) Nasal SARS-CoV-2 (PCR) Urine Opiates Screen NEGATIVE Ur Oxycodone Screen NEGATIVE Urine Methadone Screen NEGATIVE Ur Propoxyphene Screen NEGATIVE Ur Barbiturates Screen NEGATIVE Ur Tricyclics Screen NEGATIVE Ur Phencyclidine Scrn NEGATIVE Ur Amphetamine Screen NEGATIVE U Methamphetamines Scrn NEGATIVE U Benzodiazepines Scrn NEGATIVE Urine Cocaine Screen NEGATIVE U Cannabinoids Screen NEGATIVE 11/03/22 11/03/22 11/03/22 15:00 15:05 15:05 WBC RBC Hgb Hct MCV MCH MCHC RDW Plt Count MPV Neut # (Auto) Lymph # (Auto) [place] # (Auto) Eos # (Auto) Baso # (Auto) Absolute Nucleated RBC Total Counted Band Neuts % (Manual) Reactive Lymphs % (Man) Abnorm Lymph % (Manual) Myelocytes % Nucleated RBC % Neutrophils # (Manual) Lymphocytes # (Manual) Monocytes # (Manual) Eosinophils # (Manual) Basophils # (Manual) Nucleated RBCs Differential Comment Bld Gas Analysis Time 1537 Sample Site RIGHT BRACHIAL ABG pH 7.36 ABG pCO2 40 ABG pO2 81 ABG HCO3 22.3 ABG Total CO2 23.5 ABG O2 Saturation 96 ABG Base Excess -3.0 L Floyd Test POSITIVE Respiration Rate 20 O2 Delivery Device VENTILATOR Vent Mode ASSIST/CONTROL FiO2 80.00 Tidal Volume 450 PEEP 5 Sodium Potassium Chloride Carbon Dioxide Anion Gap BUN Creatinine Estimated GFR (MDRD) Glucose Calcium Total Bilirubin AST ALT Alkaline Phosphatase Troponin I High Sens 388.0 H* B-Natriuretic Peptide 1993 H Total Protein Albumin Globulin Albumin/Globulin Ratio Lipase Urine Color Urine Clarity Urine pH Ur Specific [place] Urine Protein Urine Glucose (UA) Urine Ketones Urine Occult Blood Urine Nitrite Urine Bilirubin Urine Urobilinogen Ur Leukocyte Esterase Urine RBC Urine WBC Ur Epithelial Cells Ur Squamous Epith Cells Urine Bacteria Urine Mucus Ur Microscopic Review Urine Culture Comments Nasal Adenovirus (PCR) Nasal B. parapertussis DNA (PCR) Nasal Coronavir 229E PCR Nasal Coronavir HKU1 PCR Nasal Coronavir NL63 PCR Nasal Coronavir OC43 PCR Nasal Enterovir/Rhinovir PCR Nasal Influenza B PCR Nasal Influenza A PCR Nasal Parainfluen 1 PCR Nasal Parainfluen 2 PCR Nasal Parainfluen 3 PCR Nasal Parainfluen 4 PCR Nasal RSV (PCR) Nasal B.pertussis DNA PCR Nasal C.pneumoniae (PCR) Danial Human Metapneumo PCR Nasal M.pneumoniae (PCR) Nasal SARS-CoV-2 (PCR) Urine Opiates Screen Ur Oxycodone Screen Urine Methadone Screen Ur Propoxyphene Screen Ur Barbiturates Screen Ur Tricyclics Screen Ur Phencyclidine Scrn Ur Amphetamine Screen U Methamphetamines Scrn U Benzodiazepines Scrn Urine Cocaine Screen U Cannabinoids Screen 11/03/22 16:15 WBC RBC Hgb Hct MCV MCH MCHC RDW Plt Count MPV Neut # (Auto) Lymph # (Auto) [place] # (Auto) Eos # (Auto) Baso # (Auto) Absolute Nucleated RBC Total Counted Band Neuts % (Manual) Reactive Lymphs % (Man) Abnorm Lymph % (Manual) Myelocytes % Nucleated RBC % Neutrophils # (Manual) Lymphocytes # (Manual) Monocytes # (Manual) Eosinophils # (Manual) Basophils # (Manual) Nucleated RBCs Differential Comment Bld Gas Analysis Time Sample Site ABG pH ABG pCO2 ABG pO2 ABG HCO3 ABG Total CO2 ABG O2 Saturation ABG Base Excess Floyd Test Respiration Rate O2 Delivery Device Vent Mode FiO2 Tidal Volume PEEP Sodium Potassium Chloride Carbon Dioxide Anion Gap BUN Creatinine Estimated GFR (MDRD) Glucose Calcium Total Bilirubin AST ALT Alkaline Phosphatase Troponin I High Sens B-Natriuretic Peptide Total Protein Albumin Globulin Albumin/Globulin Ratio Lipase Urine Color Urine Clarity Urine pH Ur Specific [place] Urine Protein Urine Glucose (UA) Urine Ketones Urine Occult Blood Urine Nitrite Urine Bilirubin Urine Urobilinogen Ur Leukocyte Esterase Urine RBC Urine WBC Ur Epithelial Cells Ur Squamous Epith Cells Urine Bacteria Urine Mucus Ur Microscopic Review Urine Culture Comments Nasal Adenovirus (PCR) NOT DETECTED Nasal B. parapertussis DNA (PCR) NOT DETECTED Nasal Coronavir 229E PCR NOT DETECTED Nasal Coronavir HKU1 PCR NOT DETECTED Nasal Coronavir NL63 PCR NOT DETECTED Nasal Coronavir OC43 PCR NOT DETECTED Nasal Enterovir/Rhinovir PCR NOT DETECTED Nasal Influenza B PCR NOT DETECTED Nasal Influenza A PCR NOT DETECTED Nasal Parainfluen 1 PCR NOT DETECTED Nasal Parainfluen 2 PCR NOT DETECTED Nasal Parainfluen 3 PCR NOT DETECTED Nasal Parainfluen 4 PCR NOT DETECTED Nasal RSV (PCR) NOT DETECTED Nasal B.pertussis DNA PCR NOT DETECTED Nasal C.pneumoniae (PCR) NOT DETECTED Danial Human Metapneumo PCR NOT DETECTED Nasal M.pneumoniae (PCR) NOT DETECTED Nasal SARS-CoV-2 (PCR) NOT DETECTED Urine Opiates Screen Ur Oxycodone Screen Urine Methadone Screen Ur Propoxyphene Screen Ur Barbiturates Screen Ur Tricyclics Screen Ur Phencyclidine Scrn Ur Amphetamine Screen U Methamphetamines Scrn U Benzodiazepines Scrn Urine Cocaine Screen U Cannabinoids Screen - Rads (name of study) Chest x-ray Relevant Findings:: Final report received, See rad report PD Medical Decision Making - ED course Complexity details: reviewed old records, reviewed results, re-evaluated patient, considered differential, d/w family, d/w professional services consultant ED course: The patient arrived in the emergency department with CPR in progress and was continued on resuscitation protocol with CPR, 2-minute pulse And rhythm checks, and every 2 minute epinephrine. The patient had already been given a bolus of amiodarone 300 mg in route and was given a second bolus of 150 mg here. He was also given a dose of bicarbonate. Given that the patient was a dialysis patient, I did also order administration of calcium chloride 1 g in case of hyperkalemia. The patient ultimately did regain pulses briefly, but then deteriorated into Coarse V-fib at which time his defibrillator delivered several shocks. The patient then went into PEA, which had been his predominant rhythm during the first few pulse checks after he arrived in our ED. Further rounds of epinephrine ensued and the patient did regain a pulse again. At that time, he was placed on an amiodarone drip per protocol and as he had been found to be hypotensive, norepinephrine drip was started also. A postarrest EKG Showed a bundle branch block on the right but no ST elevation. Probable atrial fibrillation was also noted. The patient's hemodynamic status actually remains surprisingly stable postarrest with amiodarone and norepinephrine drips. The patient's blood pressures normalized at a fairly low rate of norepinephrine infusion. The patient was placed on postarrest hypothermic protocol and maintained temperature around 35 C. The patient's did arrive later and was apprised of the situation. As the patient needed dialysis and a level of care that was beyond the ability of our ICU, we did begin searching for a higher level of care facility that could accept the patient in transfer. After somewhat of a lengthy process, the patient is finally excepted by Dr. Hoffmann, hardware technician at [facility] in [place]. The was made aware and agree able to the plan. - Critical Care Time(min): 120 Comments: Critical care time was necessary, secondary to high probability of , s econdary to cardiac and respiratory arrest. Time Includes: Direct patient care, Review records, Reassess patient, Document care, Coordinate care, Medical consult, Family consult for tx dec, See progress note Data interpretation: Labs, Pulse ox, ABG, CXR, Prior EKG, Cardiac output, See progress note Procedures included in critical care time: Ventilator mgmt, See progress note Departure - Departure Disposition: 02 Transfer Acute Care Hosp Clinical Impression: Cardiac arrest, ESRD (end stage renal disease) Condition: Critical
[2022-11-03] MEDS ORDERED: NOREPINEPHRINE/0.9 % NS 8 MG/250 ML BAG IV SCH (11:04)
[2022-11-03 11:16] LABS: ABG HCO3 23.8 mmol/L (22.0-26.0); ABG PCO2 56 mmHg (34-45); ABG PH 7.25 (7.35-7.45); ABG PO2 111 mmHg (80-100); ABG TCO2 25.5 MMOL/L (21.0-29.0)
[2022-11-03 11:17] LABS: ABG BASE EXCESS -3.9 mmol/L (-2.0-3.0); ABG MODE OF VENTILATION ASSIST/CONTROL; ABG OXYGEN SATURATION 98 % (94-98); ABG RESPIRATORY RATE 23 b/min; ALLEN TEST POSITIVE
[2022-11-03 13:09] LABS: ABG BASE EXCESS -2.4 mmol/L (-2.0-3.0); ABG OXYGEN SATURATION 98 % (94-98); ABG PCO2 42 mmHg (34-45); ABG PH 7.36 (7.35-7.45); ABG PO2 113 mmHg (80-100); ABG TCO2 24.3 MMOL/L (21.0-29.0)
[2022-11-03 13:10] LABS: ABG MODE OF VENTILATION ASSIST/CONTROL; ABG RESPIRATORY RATE 23 b/min; ALLEN TEST POSITIVE
[2022-11-03 15:10] LABS: MUDS CUTOFF CONCENTRATIONS CUTOFF CONC BELOW:
[2022-11-03 15:14] LABS: GLUCOSE, URINE (UA) NEGATIVE (NEGATIVE); KETONES,URINE (UA) TRACE mg/dL (NEGATIVE); LEUKOCYTE ESTERASE, URINE TRACE (NEGATIVE); NITRITE,URINE POSITIVE (NEGATIVE); OCCULT BLOOD,URINE TRACE-INTA (NEGATIVE); PROTEIN,URINE 100 mg/dL (NEGATIVE); UROBILINOGEN,URINE 1 (NORMAL) E.U./dL (NORMAL)
[2022-11-03 15:19] LABS: CLARITY,URINE HAZY (CLEAR); ICTOTEST,URINE POSITIVE
[2022-11-03 15:20] LABS: BILIRUBIN,URINE SMALL (NEGATIVE)
[2022-11-03 15:34] LABS: AMPHETAMINE SCREEN,URINE NEGATIVE (NEGATIVE); BARBITURATE SCREEN,UR NEGATIVE (NEGATIVE); BENZODIAZEPINES SCREEN, URINE NEGATIVE (NEGATIVE); COCAINE SCREEN URINE NEGATIVE (NEGATIVE); METHADONE SCREEN, URINE NEGATIVE (NEGATIVE); METHAMPHETAMINES SCREEN, URINE NEGATIVE (NEGATIVE); OPIATE SCREEN, URINE NEGATIVE (NEGATIVE); OXYCODONE SCREEN, URINE NEGATIVE (NEGATIVE); PROPOXYPHENE SCREEN, URINE NEGATIVE (NEGATIVE); THC CANNABINOID SCREEN, URINE NEGATIVE (NEGATIVE); TRICYCLIC ANTIDEPRESSANT,URINE NEGATIVE (NEGATIVE)
[2022-11-03 15:39] LABS: ABG HCO3 22.3 mmol/L (22.0-26.0); ABG MODE OF VENTILATION ASSIST/CONTROL; ABG OXYGEN SATURATION 96 % (94-98); ABG PCO2 40 mmHg (34-45); ABG PH 7.36 (7.35-7.45); ABG PO2 81 mmHg (80-100); ABG RESPIRATORY RATE 20 b/min; ABG TCO2 23.5 MMOL/L (21.0-29.0); ALLEN TEST POSITIVE
[2022-11-03 15:45] LABS: EPITHELIAL CELLS,UR FEW Transitional /HPF (<= Few); RBC,URINE 0-5 /HPF (0-5); SQUAMOUS EPITHELIAL CELL,UR NONE SEEN (<= Few); WBC,URINE >25 /HPF (0-3)
[2022-11-03 15:46] LABS: BACTERIA,URINE Few /HPF (None Seen); MUCUS,URINE Few Strands
[2022-11-03] MEDS ORDERED: AMIODARONE 360 MG/200 ML 200 ML IV SCH (16:35)
[2022-11-03 17:15] LABS: B. PARAPERTUSSIS- RESP PCR PAN NOT DETECTED; B. PERTUSSIS- RESP PCR PANEL NOT DETECTED; C. PNEUMONIAE- RESP PCR PANEL NOT DETECTED; CORONAVIRUS 229E-RESP PCR NOT DETECTED; CORONAVIRUS HKU1-RESP PCR NOT DETECTED; CORONAVIRUS NL63-RESP PCR NOT DETECTED; CORONAVIRUS OC43-RESP PCR NOT DETECTED; HUMAN METAPNEUMOVIRUS NOT DETECTED; INFLUENZA A- RESP PCR PANEL NOT DETECTED; INFLUENZA B - RESP PCR PANEL NOT DETECTED; M. PNEUMONIAE- RESP PCR PANEL NOT DETECTED; PARAINFLUENZA VIRUS 1 NOT DETECTED; PARAINFLUENZA VIRUS 2 NOT DETECTED; PARAINFLUENZA VIRUS 3 NOT DETECTED; PARAINFLUENZA VIRUS 4 NOT DETECTED; RHINOVIRUS/ENTEROVIRUS NOT DETECTED; RSV- RESP PCR PANEL NOT DETECTED; SARS-CoV-2 -RESP PCR PANEL NOT DETECTED
[2022-11-03 18:05] VITALS: BP 118/77
[2022-11-03] MEDS ORDERED: fentaNYL 100 MCG/2 ML VIAL IVP STA (18:47)
[2022-11-03] MEDS ORDERED: MIDAZOLAM 10 MG/2 ML VIAL IVP STA (18:47)
== END 2022-11-03 19:44 | disposition short-term general hospital (02) ==
LOC: EDUNIT# → ED 09:40
DX: I46.9 Cardiac arrest, cause unspecified (principal); I12.0 Hypertensive chronic kidney disease with stage 5 chronic kidney disease or end stage renal disease; E11.22 Type 2 diabetes mellitus with diabetic chronic kidney disease; N18.6 End stage renal disease; I95.9 Hypotension, unspecified; Z99.2 Dependence on renal dialysis; Z87.891 Personal history of nicotine dependence; Z20.822 Contact with and (suspected) exposure to COVID-19; Z95.810 Presence of automatic (implantable) cardiac defibrillator; Z79.4 Long term (current) use of insulin
CPT/HCPCS: 36415; 36600; 80053; 80306; 81001; 82803; 83690; 83880; 84484; 85025; 87086; 87633; 92950; 93005; 94002; 96365; 96366; 96368; 96375; 96376; 99291; 99292; J0282; J2250; 81003; 94770